=== PATIENT | male | born 1950 | race Caucasian/White ===

== ENCOUNTER 2016-10-23 01:18 | Inpatient (IN) | payer MEDICARE, MEDICAID ==
--- NOTE | 2016-10-23 02:38 | ED ---
leslie Gibbs Timothy, scribed for Catarino Luciano MD on 10/23/16 at 0133 . HPI Febrile Illness - HPI Summary HPI Summary: LEVEL V CAVEAT: Pt has intellectual and developmental disorders and cannot communicate an accurate history. Jordy Rob is a 66 yo male presenting to [facility] with fever of 103.7 at 2200 , 10/22/16, per caregiver. His Hx includes febrile seizures. Per caregiver, Pt has been more lethargic than normal today. Pt is unable to communicate his Hx due to intellectual and developmental disability. He was medicated with 325 mg tylenol at 2230. His MHx also includes DM II, epilepsy, PPD, hemorrhoids, chronic knee infusion, arthritis, excoriation disorder. - History of Current Complaint Chief Complaint: EDFever Hx Obtained From: Family/Form [employer]ter [employer] Onset/Duration: Started Hours Ago, Still Present Time of Onset: 22:00 Timing: Constant Temperature: 103.7 F Initial Severity: Moderate Current Severity: Moderate Pain Intensity: 0 Pain Scale Used: 0-10 Numeric Aggravating Factors: Nothing Alleviating Factors: Nothing Associated Signs and Symptoms: Altered Mental Status - lethargy - Additional Pertinent History Primary Care Physician: [id number] - Allergy/Home Medications Allergies/Adverse Reactions: Allergies Allergy/AdvReac Type Severity Reaction Status Date / Time Clindamycin Allergy Severe Unknown Verified 08/31/16 23:13 Reaction Details Penicillins Allergy Severe Unknown Verified 08/31/16 23:13 Reaction Details Clindamycin/Lincomycin Allergy See Comment Verified 08/31/16 23:13 Levofloxacin [From Levaquin] Allergy Swelling Verified 08/31/16 23:13 Of Face,Lips,& Throat Lincomycin Allergy See Comment Verified 08/31/16 23:13 Vancomycin Allergy Unknown Verified 08/31/16 23:13 Reaction Details lincosamides Allergy Unknown Unknown Uncoded 08/31/16 23:13 Reaction Details Home Medications: Home Medications Erythromycin OPHTH.OINT* [Ilotycin OPHTH.OINT*] 1 applic RIGHT EYE BEDTIME 10/23 [History Confirmed 10/23/16] Magnesium Hydroxide LIQ* [Milk of Magnesia LIQ*] 30 ml PO Q72HR PRN 10/23/16 [ History Confirmed 10/23/16] Miconazole Nitrate (Topical) [Antifungal] 1 applic TOPICAL DAILY 10/23/16 [ History Confirmed 10/23/16] Phenytoin Sodium Extended [Phenytek] 200 mg PO BEDTIME 10/23/16 [History Confirmed 10/23/16] guaiFENesin LIQ* [Robitussin*] 10 ml PO Q6H PRN 10/23/16 [History Confirmed 08/29] PMH/Surg Hx/FS Hx/Imm Hx Endocrine/Hematology History: Reports: Hx Diabetes - II Denies: Hx Thyroid Disease Cardiovascular History: Reports: Hx Hypertension Respiratory History: Reports: Hx Pneumonia Denies: Hx Asthma, Hx Chronic Obstructive Pulmonary Disease (COPD) GI History: Reports: Other GI Disorders - Hx of hemorrhoids Denies: Hx Ulcer History: Reports: Hx Kidney Stones Musculoskeletal History: Reports: Hx Arthritis Sensory History: Reports: Hx Cataracts Opthamlomology History: Reports: Hx Cataracts Neurological History: Reports: Hx Developmental Delay - intellectual developmental delay, Hx Seizures - epilepsy, Other Neuro Impairments/Disorders - epilepsy, profound IDD Psychiatric History: Reports: Hx Anxiety, Other Psychiatric Issues/Disorders - excoriation disorder - Surgical History Surgery Procedure, Year, and Place: kidney stones; skin grafts - Immunization History Date of Tetanus Vaccine: UTD Date of Influenza Vaccine: UTD Infectious Disease History: No Infectious Disease History: Reports: Hx of Known/Suspected MRSA Denies: Hx Clostridium Difficile, Hx Hepatitis, Hx Human Immunodeficiency Virus (HIV), Hx Shingles, Hx Tuberculosis, Traveled Outside the [place] in Last 30 Days - Family History Known Family History: Positive: Unknown - The patient has Intellectual and Developmental Disabilities - Social History Alcohol Use: None Hx Substance Use: No Substance Use Type: Reports: None Hx Tobacco Use: No Smoking Status (MU): Never Smoked Tobacco Review of Systems - ROS Summary Review of Systems Summary: LEVEL V CAVEAT: Pt has intellectual and developmental disability and is unable to review his systems. Positive: Fever Neurological: Other - lethargy All Other Systems Reviewed And Are Negative: No Physical Exam Triage Information Reviewed: Yes Vital Signs On Initial Exam: Initial Vitals Temp Pulse Resp BP Pulse Ox 99.5 F 85 16 101/62 98 10/23/16 01:23 10/23/16 01:23 10/23/16 01:23 10/23/16 01:23 10/23/16 01:23 Vital Signs Reviewed: Yes Completion Of Physical Exam Limited Due To: Extremis Appearance: Positive: Ill-Appearing - contracted Skin: Positive: Warm, Dry Eyes: Positive: BENITA ENT: Positive: Normal ENT inspection Respiratory/Lung Sounds: Positive: Rhonchi - diffuse bilat Cardiovascular: Positive: Normal Abdomen Description: Positive: Soft, Distended Musculoskeletal: Positive: Limited @ Diagnostics - Vital Signs Vital Signs Temp Pulse Resp BP Pulse Ox 10/23/16 01:23 99.5 F 85 16 101/62 98 - Laboratory Result Diagrams: 10/23/16 02:35 10/23/16 02:35 Lab Statement: Any lab studies that have been ordered have been reviewed, and results considered in the medical decision making process. - Radiology CXR Xray Interpretation: No Acute Changes - uninterpretable Radiology Interpretation Completed By: ED Physician - CT Chest CT Interpretation: Positive (See Comments) - Impression: Posterior thoracic trachea and right main bronchus soft tissue extends into upper right lobe, right middle lobe, and right lower lobe bronchi and may be due to acute aspiration debris or mucus plugging. If clinically indicated further examination and workup may be needed. Moderate lung consolidation in the right upper lobe, right middle lobe, right lower lobe, and left lower lobe may be due to aspiration pneumonia or pneumonia. Pathologically enlarged mediastinal lymphadenopathy including malignancy cannot be excluded. CT Interpretation Completed By: Radiologist - imaging social worker delinquency prevention A/P CT Interpretation: Positive (See Comments) - Impression: Posterior thoracic trachea and right main bronchus soft tissue extends into upper right lobe, right middle lobe, and right lower lobe bronchi and may be due to acute aspiration debris or mucus plugging. If clinically indicated further examination and workup may be needed. Moderate lung consolidation in the right upper lobe, right middle lobe, right lower lobe, and left lower lobe may be due to aspiration pneumonia or pneumonia. Pathologically enlarged mediastinal lymphadenopathy including malignancy cannot be excluded. CT Interpretation Completed By: Radiologist - imaging social worker delinquency prevention Course/Dx - Course Assessment/Plan: Jordy Rob is a 66 yo male presenting to [facility] with fever of 103.7. He cannot communicate effectively due to intellectual and developmental disabilities. After review of imaging studies, lab work, and consult with Dr. Paez, he will be admitted. - Diagnoses Provider Diagnoses: Pneumonia - Provider Notifications Discussed Care Of Patient With: 0322 - Dr. Paez (hospitalist) - Discussed Pt condition, agrees to admit Pt. Instructed by Provider To: Admit As Inpatient - Critical Care Time Critical Care Time: 30-74 min Discharge - Discharge Plan Condition: Fair Disposition: ADMITTED TO [facility] The documentation as recorded by the leslie burt Timothy accurately reflects the service I personally performed and the decisions made by me, Catarino Luciano MD.
[2016-10-23 02:40] LABS: Budding Yeast Present (Absent); Urine Bacteria Absent (Absent); Urine Bilirubin Negative (Negative); Urine Glucose Negative (Negative); Urine Nitrite Negative (Negative)
[2016-10-23 02:58] LABS: Hematocrit 32 % (42-52); Hemoglobin 10.5 g/dl (14.0-18.0); Mean Corpuscular HGB Conc 33 g/dl (31-36); Mean Corpuscular Hemoglobin 34 pg (27-31); Mean Corpuscular Volume 102 fL (80-94); Red Blood Count 3.09 10^6/ul (4.0-5.4); Red Cell Distribution Width 15 % (10.5-15); White Blood Count 9.8 10^3/ul (3.5-10.8)
[2016-10-23 02:59] LABS: Add Diff/Slide Review? Slide Review Added; Comments Flag Yes
[2016-10-23 03:05] LABS: BUN/Creatinine Ratio 41.7 (8-20); Calcium 8.5 mg/dL (8.6-10.3); EGFR African American 222.9 (>60); EGFR Non-African American 173.3 (>60); Potassium 3.6 mmol/L (3.5-5.0)
[2016-10-23] MEDS ORDERED: cefTRIAXone VIAL(*) 1,000 MG in NS 0.9% 50 ML* 50 ML IVPB ONE (03:21)
[2016-10-23] MEDS ORDERED: Meropenem 1 GM PREMIX(*) 1 GM/50 ML BAG IV ONE (03:23)
--- NOTE | 2016-10-23 04:04 | HP ---
H&P (Free Text) History and Physical: PCP: Ivone Cordova MD Date/Time of Evaluation: 10/23/2016 0400 CC: fever 103.7F HPI: Mr Rob is a severely mentally challenged non-verbal 66YO male resident of the [facility] who is unable to make his needs clearly known. Per his caregiver's account has had decreased activity and appetite over the past 2 days. Tonight he was noticed to feel hot with a fever of 103.7F prompting his transport for evaluation. There is no report of cough, congestion, N/V/D, concern for pain, SOB, or other issues. ED evaluation is significant for a CT chest WO revealing RU/M/LL & LLL infiltrates consistent with aspiration. Labs show a stable macrocytic anemia, WBCs of 9.8 w/ 84% neutrophils, baseline chemistries, & UA consistent with UTI. Vitals are stable, saO2 mid- to high 90s on 4L NC. Of note he was admitted to [facility] [place]/31 - 09/04/2016 for RLL pneumonia. PMedHx DM2 HTN HLD seizure disorder congenitally mentally challenged anxiety neurodermatitis OA BPH Allergies Clindamycin Allergy (Severe, Verified 08/31/16 23:13) Unknown Reaction Details Penicillins Allergy (Severe, Verified 08/31/16 23:13) Unknown Reaction Details Clindamycin/Lincomycin Allergy (Verified 08/31/16 23:13) See Comment Levofloxacin [From Levaquin] Allergy (Verified 08/31/16 23:13) Swelling Of Face,Lips,& Throat Lincomycin Allergy (Verified 08/31/16 23:13) See Comment Vancomycin Allergy (Verified 08/31/16 23:13) Unknown Reaction Details lincosamides Allergy (Unknown, Uncoded 08/31/16 23:13) Unknown Reaction Details Ambulatory Orders Acetaminophen [Tylenol] 650 mg PO BID 02/24/13 Calcium Carbonate-Cholecalcife [Oyster Shell Calcium 250+] 1 tab PO BID Finasteride TAB* [Proscar TAB*] 5 mg PO DAILY 02/24/13 Multiple Vitamin [Multivitamins] 1 cap PO DAILY 02/24/13 Phenobarbital 60 mg PO BID 02/24/13 Pioglitazone HCl-Metformin HCl [Actoplus Met] 1 tab PO BID 02/24/13 Polyethylene Glycol 3350* [Miralax*] 8.5 gm PO DAILY 02/24/13 Aspirin EC Low Dose* [Ecotrin EC Low Dose*] 81 mg PO DAILY 04/16/15 Senna TAB* [Senokot TAB*] 1 tab PO BID 11/18/15 Zocor 20 MG (NF) 20 mg PO DAILY 08/22/16 Wound Dressings [Medihoney Calcium Alginat] 1 pad TOPICAL DAILY PRN 09/01/16 Erythromycin OPHTH.OINT* [Ilotycin OPHTH.OINT*] 1 applic RIGHT EYE BEDTIME 10/23 Magnesium Hydroxide LIQ* [Milk of Magnesia LIQ*] 30 ml PO Q72HR PRN 10/23/16 Miconazole Nitrate (Topical) [Antifungal] 1 applic TOPICAL DAILY 10/23/16 Phenytoin Sodium Extended [Phenytek] 200 mg PO BEDTIME 10/23/16 guaiFENesin LIQ* [Robitussin*] 10 ml PO Q6H PRN 10/23/16 SocHx: no tobacco, alcohol, or recreational drug HX; resides at the [facility]; full code status, needs revisiting FamHx: unobtainable ROS: as above, otherwise reviewed and all were negative Constitutional: NAD, normally developed, overweight white male vitals: Vital Signs Temp 36.2 C 10/23/16 04:44 Pulse 76 10/23/16 04:44 Resp 16 10/23/16 05:13 BP 108/61 10/23/16 04:44 Pulse Ox 97 10/23/16 04:44 Intake & Output 10/22/16 10/22/16 10/23/16 11:59 23:59 11:59 Weight 150 lb HEENM: atraumatic; sclera/conjunctiva: non-icteric/clear; hearing: unable to assess; oropharynx: protuberant tongue, mucosa moist Neck: soft tissue: no nuchal rigidity; thyroid: normal Pulmonary: markedly diminished R base with mild scatter crackles thoughout, fair to poor aeration, no accessory muscle use CV: RR/RR, normal S1S2, no carotid bruit, no jugular venous distention, 2+ B DP/ PT, no edema Abdominal: soft, non-distended, non-tender, no rebound/guarding/rigidity, normoactive bowel sounds, no hepatosplenomegaly or masses, no costovertebral angle tenderness Musculoskeletal: general: grossly intact; gait: non-ambulatory at baseline Integumental: normal appearance and texture Psychiatric orientation: awake & alert, unaware of situation affect: calm mood: acquiescent eye contact: poor content: absent responses: compliant insight: absent Testing: Lab Results 10/23/16 10/23/16 10/23/16 Range/Units 02:20 02:35 02:35 WBC 9.8 (3.5-10.8) 10^3/ul RBC 3.09 L (4.0-5.4) 10^6/ul Hgb 10.5 L (14.0-18.0) g/dl Hct 32 L (42-52) % MCV 102 H (80-94) fL MCH 34 H (27-31) pg MCHC 33 (31-36) g/dl RDW 15 (10.5-15) % Plt Count (150-450) 10^3/ul MPV (7.4-10.4) um3 Neut % (Auto) 84.3 H (38-83) % Lymph % (Auto) 8.1 L (25-47) % Owen % (Auto) 6.2 (1-9) % Eos % (Auto) 0.1 (0-6) % Baso % (Auto) 1.3 (0-2) % Absolute Neuts (auto) 8.2 H (1.5-7.7) 10^3/ul Absolute Lymphs (auto) 0.8 L (1.0-4.8) 10^3/ul Absolute Monos (auto) 0.6 (0-0.8) 10^3/ul Absolute Eos (auto) 0 (0-0.6) 10^3/ul Absolute Basos (auto) 0.1 (0-0.2) 10^3/ul Absolute Nucleated RBC 0 10^3/ul Nucleated RBC % 0 Plt Count ,Citrate (150-450) 10^3/ul Sodium 138 (133-145) mmol/L Potassium 3.6 (3.5-5.0) mmol/L Chloride 99 L (101-111) mmol/L Carbon Dioxide 33 H (22-32) mmol/L Anion Gap 6 (2-11) mmol/L BUN 20 (6-24) mg/dL Creatinine 0.48 L (0.67-1.17) mg/dL Est GFR ( Amer) 222.9 (>60) Est GFR (Non-Af Amer) 173.3 (>60) BUN/Creatinine Ratio 41.7 H (8-20) Glucose 116 H (70-100) mg/dL Calcium 8.5 L (8.6-10.3) mg/dL Urine Color Yellow Urine Appearance Cloudy Urine pH 5.0 (5-9) Ur Specific [place] 1.023 (1.010-1.030) Urine Protein 2+(100 mg/dl) H (Negative) Urine Ketones Trace H (Negative) Urine Blood Negative (Negative) Urine Nitrate Negative (Negative) Urine Bilirubin Negative (Negative) Urine Urobilinogen Negative (Negative) Ur Leukocyte Esterase Trace H (Negative) Urine WBC (Auto) 3+(>20/hpf) H (Absent) Urine RBC (Auto) 2+(6-10/hpf) H (Absent) Ur Squamous Epith Cells Present H (Absent) Calcium Oxalate Crystal Present H (Absent) Urine Bacteria Absent (Absent) Hyaline Casts Present H (Absent) Urine Yeast Present H (Absent) Urine Glucose Negative (Negative) Urine Ascorbic Acid * H (Negative) 10/23/16 Range/Units 03:55 WBC (3.5-10.8) 10^3/ul RBC (4.0-5.4) 10^6/ul Hgb (14.0-18.0) g/dl Hct (42-52) % MCV (80-94) fL MCH (27-31) pg MCHC (31-36) g/dl RDW (10.5-15) % Plt Count (150-450) 10^3/ul MPV (7.4-10.4) um3 Neut % (Auto) (38-83) % Lymph % (Auto) (25-47) % Owen % (Auto) (1-9) % Eos % (Auto) (0-6) % Baso % (Auto) (0-2) % Absolute Neuts (auto) (1.5-7.7) 10^3/ul Absolute Lymphs (auto) (1.0-4.8) 10^3/ul Absolute Monos (auto) (0-0.8) 10^3/ul Absolute Eos (auto) (0-0.6) 10^3/ul Absolute Basos (auto) (0-0.2) 10^3/ul Absolute Nucleated RBC 10^3/ul Nucleated RBC % Plt Count ,Citrate 185 (150-450) 10^3/ul Sodium (133-145) mmol/L Potassium (3.5-5.0) mmol/L Chloride (101-111) mmol/L Carbon Dioxide (22-32) mmol/L Anion Gap (2-11) mmol/L BUN (6-24) mg/dL Creatinine (0.67-1.17) mg/dL Est GFR ( Amer) (>60) Est GFR (Non-Af Amer) (>60) BUN/Creatinine Ratio (8-20) Glucose (70-100) mg/dL Calcium (8.6-10.3) mg/dL Urine Color Urine Appearance Urine pH (5-9) Ur Specific [place] (1.010-1.030) Urine Protein (Negative) Urine Ketones (Negative) Urine Blood (Negative) Urine Nitrate (Negative) Urine Bilirubin (Negative) Urine Urobilinogen (Negative) Ur Leukocyte Esterase (Negative) Urine WBC (Auto) (Absent) Urine RBC (Auto) (Absent) Ur Squamous Epith Cells (Absent) Calcium Oxalate Crystal (Absent) Urine Bacteria (Absent) Hyaline Casts (Absent) Urine Yeast (Absent) Urine Glucose (Negative) Urine Ascorbic Acid (Negative) CXR, personally reviewed: markedly abnormal, large RLL effusion with macdonald-lobar infiltrates CT chest WO, personally reviewed: possible aspiration debris in upper airways & R mainstem bronchus, RUL/RML/RLL/LLL consolidation, pathologically enlarged mediastinal lymph nodes - malignancy cannot be excluded Impression: 66 profoundly mentally challenged male [facility] resident presenting with fever 2nd aspiration pneumonia DIAGNOSIS & PLAN Primary aspiration pneumonia : NPO : IVFs : IV meropenem 1g Q8H : nasal MRSA swab positive, linezolid IV (vancomycin allergy) : blood, sputum, & urine CXs : speech evaluation : supplemental oxygen : ICU monitoring as patient will likely decompensate respiratorially and require intubation w/i 48h : supplemental care Secondary DM2 : basal/correctional protocol : hold pioglitazone HTN : not currently on medications, monitor HLD : hold simvastatin seizure disorder : change phenytoin PO to fosphenytoin IV : change phenobarbital PO to IV : monitor levels periodically congenitally mentally challenged : no acute issues BPH : [place] to gravity for accurate monitoring of renal function & urine output in a critically ill patient Admission Rational: inpatient for management on HCAP in a patient at very high likelihood of respiratory decompensation DVTp: SCDs & heparin SQ Code Status: full, needs revisiting HCP: [facility]
[2016-10-23 04:17] LABS: Platelet Count, Citrated 185 10^3/ul (150-450)
[2016-10-23] MEDS ORDERED: Ondansetron INJ* 2 MG/ML VIAL IV PRN (04:25)
[2016-10-23] MEDS ORDERED: NS 0.9% 1000 ML* 1,000 ML IV ONE (04:30)
[2016-10-23] MEDS ORDERED: NS 0.9% 1000 ML* 1,000 ML IV SCH (04:30)
[2016-10-23] MEDS ORDERED: Linezolid 600 MG IVPREMIX(*) 600 MG/300 ML BAG IVPB SCH (06:00)
[2016-10-23] MEDS: Insulin LISPRO* 1 UNITS UNIT SUBCUT SCH ×4 (06:29→20:23)
[2016-10-23] MEDS: Linezolid 600 MG IVPREMIX(*) 600 MG/300 ML BAG IVPB SCH ×2 (06:39→17:41)
[2016-10-23] MEDS: PHENobarbital SODIUM(*) 65 MG/ML VIAL IV SCH ×2 (07:46→21:59)
[2016-10-23] MEDS: Pantoprazole IV* 40 MG IV SCH (07:46)
--- NOTE | 2016-10-23 08:19 | RAD ---
HISTORY: Fever COMPARISONS: September 03, 2016 VIEWS: 2: Frontal and lateral views of the chest. FINDINGS: CARDIOMEDIASTINAL SILHOUETTE: The cardiomediastinal silhouette is partially obscured DANG: The right hilum is obscured PLEURA: There is a large right pleural effusion. LUNG PARENCHYMA: There is confluent alveolar opacification of the right lung base ABDOMEN: The upper abdomen is clear. There is no subphrenic gas. BONES AND SOFT TISSUES: No bone or soft tissue abnormalities are noted. OTHER: None. IMPRESSION: LARGE RIGHT PLEURAL EFFUSION RIGHT BASILAR ATELECTASIS VERSUS CONSOLIDATION. RECOMMEND FOLLOW-UP UNTIL RESOLUTION TO EXCLUDE UNDERLYING PULMONARY PARENCHYMAL PATHOLOGY.
--- NOTE | 2016-10-23 08:24 | RAD ---
HISTORY: Shortness of breath COMPARISONS: Chest x-ray dated October 23, 2016 TECHNIQUE: Multiple contiguous axial CT scans of the chest were obtained without intravenous contrast. Coronal and sagittal multiplanar reformations are also submitted for review. FINDINGS: The study is limited by the lack of intravenous contrast. This limits evaluation of the solid organs and vasculature. NECK AND THYROID: The lower neck and thyroid are unremarkable. CHEST WALL: There is no lower cervical, axillary, or supraclavicular lymphadenopathy by size criteria. HEART AND PERICARDIUM: The heart is unremarkable. AORTA AND PULMONARY VASCULATURE: The aorta is unremarkable. There are pulmonary artery is somewhat enlarged compared to the aorta. MEDIASTINUM: The mediastinal lymphadenopathy noted on the preliminary report is not clearly visualized on this noncontrast CT of the chest. DANG: Evaluation of the dang is limited by the lack of intravenous contrast. There is no obvious hilar lymphadenopathy by size criteria. AIRWAY AND ESOPHAGUS: There is opacification of the right mainstem bronchus, branches. There is minimal aeration of the distal subsegmental airway LUNG PARENCHYMA: There is minimal left basilar atelectasis. There is consolidation of the right middle and lower lobes PLEURA: There is a moderate right pleural effusion. UPPER ABDOMEN: There is right-sided nephrolithiasis. There is a small amount of ascites. BONES AND SOFT TISSUES: Degenerative changes are noted OTHER: None. IMPRESSION: 1. THERE IS OPACIFICATION OF THE RIGHT MAINSTEM BRONCHUS AND ITS BRANCHES, RESULTING IN RIGHT MIDDLE AND LOWER LOBE CONSOLIDATION AND A RIGHT PLEURAL EFFUSION. ASPIRATION PNEUMONIA IS WITHIN THE DIFFERENTIAL. 2. THERE IS MINIMAL LEFT BASILAR ATELECTASIS. 3. THERE IS ENLARGEMENT OF THE PULMONARY ARTERY WHICH MAY INDICATE PULMONARY ARTERIAL HYPERTENSION. 4. RIGHT-SIDED NEPHROLITHIASIS. 5. ASCITES.
[2016-10-23] MEDS: Miconazole TOPICAL CREAM 2%* 30 GM TOPICAL SCH (08:39)
--- NOTE | 2016-10-23 08:40 | RAD ---
INDICATION: Abdominal distention COMPARISON: Chest x-ray August 31, 2016; abdominal series August 23, 2016; renal sonogram August 23, 2016 TECHNIQUE: Noncontrast axial source images were obtained from the hemidiaphragms to the symphysis pubis. This examination was ordered using a renal stone protocol which is performed without oral or intravenous contrast and therefore has inherent limitations when used to evaluate other intra-abdominal or intrapelvic pathology. Consider conventional contrast enhanced imaging if clinically indicated. Lung bases: There is bibasilar consolidative change right greater than left. There is presumed mucous plugging. Consider aspiration. Liver: The liver is normal in size. Noncontrast imaging shows no evidence of a hepatic mass or ductal dilatation. Gallbladder: There are no calcified gallstones. There is no evidence of wall thickening or pericholecystic fluid.. Spleen: The spleen is normal in size. The noncontrast CT appearance is normal. Pancreas: Noncontrast imaging shows no pancreatic mass or ductal dilitation. Evaluation is very limited Adrenal glands: No masses are identified. Kidneys/Bladder: Bilateral nonobstructive nephrolithiasis. Limited evaluation of the renal parenchyma. Trabeculated bladder. Adenopathy: Suspect periportal and pericaval and periaortic lymphadenopathy. Evaluation very limited. Fluid collections: Mesenteric stranding with scant ascites. Anasarca. Vessels: The aorta and iliac vessels are normal in caliber. There are mild atherosclerotic changes. The IVC appears normal Pelvic organs: The prostate and seminal vesicles appear normal GI tract: Evaluation of the bowel is limited without oral contrast. There is a large amount of stool throughout the colon with colonic distention similar to prior exams. Soft tissues: Anasarca as noted above. Small right inguinal hernia without obstruction Osseous structures: There are no acute osseous findings. IMPRESSION: 1. Bibasilar consolidative changes. Suggest a follow-up chest x-ray. 2. Bilateral, nonobstructive nephrolithiasis 3. Small amount of free fluid, mesenteric edema, and ascites. 4. Suspect mild lymphadenopathy. Evaluation is limited without oral contrast. 5. Large moderate retained stool with colonic distention.
--- NOTE | 2016-10-23 10:16 | PN ---
Subjective Date of Service: 10/23/16 Interval History: Seen and examined with [facility] staff at bedside They note he has mostly been sleeping this AM and less interactive otherwise appears comfortable Pt unable to make needs known Objective Active Medications: Erythromycin (Erythromycin Opth Oint*) 1 applic RIGHT EYE BEDTIME [facility] Heparin Sodium (Porcine) (Heparin Vial(*)) 5,000 units SUBCUT Q8HR [facility] Meropenem (Merrem 1 Gm Premix(*)) 1 gm in 50 mls @ 100 mls/hr IV Q8H [facility] Fosphenytoin Sodium 200 mg/ (Sodium Chloride) 54 mls @ 216 mls/hr IVPB BEDTIME [facility] Linezolid (Zyvox 600 Mg Ivpremix(*)) 600 mg in 300 mls @ 300 mls/hr IVPB Q12H [facility] Last Admin: 10/23/16 06:39 Dose: 300 mls/hr Insulin Glargine (Lantus(*)) 9 units SUBCUT 2100 [facility] Stop: 10/24/16 20:00 Insulin Human Lispro (Humalog*) 0 units SUBCUT Q4H [facility] PRN Reason: Protocol Last Admin: 10/23/16 09:53 Dose: Not Given Miconazole Nitrate (Monistat 2%*) 1 applic TOPICAL DAILY [facility] Last Admin: 10/23/16 08:39 Dose: Not Given Ondansetron HCl (Zofran Inj*) 4 mg IV Q6H PRN PRN Reason: NAUSEA Pantoprazole Sodium (Protonix Iv*) 40 mg IV 0730 [facility] Last Admin: 10/23/16 07:46 Dose: 40 mg Phenobarbital (Phenobarbital Iv(*)) 60 mg IV BID [facility] Last Admin: 10/23/16 07:46 Dose: 60 mg Vital Signs 10/23/16 10/23/16 10/23/16 04:43 04:44 04:45 Temperature 97.1 F 97.2 F Pulse Rate 76 77 Respiratory 18 8 Rate Blood Pressure 108/61 (mmHg) O2 Sat by Pulse 97 93 Oximetry 10/23/16 10/23/16 10/23/16 04:51 04:56 05:00 Temperature Pulse Rate 74 80 Respiratory 0 16 16 Rate Blood Pressure (mmHg) O2 Sat by Pulse 94 93 Oximetry 10/23/16 10/23/16 10/23/16 05:02 05:04 05:13 Temperature Pulse Rate 75 Respiratory 15 16 Rate Blood Pressure 108/61 (mmHg) O2 Sat by Pulse 92 Oximetry 10/23/16 10/23/16 10/23/16 05:15 05:30 05:45 Temperature Pulse Rate 76 75 74 Respiratory 19 18 13 Rate Blood Pressure 109/61 106/59 101/60 (mmHg) O2 Sat by Pulse 97 100 99 Oximetry 10/23/16 10/23/16 10/23/16 06:00 06:15 06:21 Temperature Pulse Rate 73 76 80 Respiratory 12 17 14 Rate Blood Pressure 100/57 (mmHg) O2 Sat by Pulse 99 99 100 Oximetry 10/23/16 10/23/16 10/23/16 06:30 06:45 07:00 Temperature Pulse Rate 81 77 77 Respiratory 17 18 14 Rate Blood Pressure 115/64 105/59 100/61 (mmHg) O2 Sat by Pulse 100 100 99 Oximetry 10/23/16 10/23/16 10/23/16 07:15 07:30 07:38 Temperature 97.5 F Pulse Rate 81 81 Respiratory 15 13 Rate Blood Pressure 120/70 119/70 (mmHg) O2 Sat by Pulse 99 98 Oximetry 10/23/16 10/23/16 10/23/16 07:45 08:00 08:15 Temperature Pulse Rate 83 74 72 Respiratory 13 16 9 Rate Blood Pressure 113/70 110/65 105/64 (mmHg) O2 Sat by Pulse 99 97 98 Oximetry 10/23/16 10/23/16 10/23/16 08:30 08:45 09:00 Temperature Pulse Rate 70 69 75 Respiratory 9 10 11 Rate Blood Pressure 105/64 108/64 116/63 (mmHg) O2 Sat by Pulse 98 99 100 Oximetry 10/23/16 10/23/16 10/23/16 09:15 09:30 09:45 Temperature Pulse Rate 71 70 72 Respiratory 9 10 11 Rate Blood Pressure 110/62 109/62 102/60 (mmHg) O2 Sat by Pulse 100 100 100 Oximetry 10/23/16 10/23/16 09:54 10:00 Temperature Pulse Rate 77 Respiratory 11 12 Rate Blood Pressure 115/65 (mmHg) O2 Sat by Pulse 100 Oximetry Oxygen Devices in Use Now: Nasal Cannula - 4L Appearance: sleeping 20 deg, NAD Eyes: PERRLA Ears/Nose/Mouth/Throat: - - large tongue and lower lip Neck: NL Appearance and Movements; NL JVP Respiratory: - - decreased BS in right lower lung to 1/2 up to apex, minimal rhonchi Cardiovascular: NL Sounds; No Murmurs; No JVD, RRR Abdominal: NL Sounds; No Tenderness; No Distention, No Hepatosplenomegaly Extremities: - - trace LE edema Neurological: - - AOx0 Result Diagrams: 10/23/16 02:35 10/23/16 02:35 Microbiology and Other Data: Microbiology 10/23/16 05:30 Influenza Types A,B Antigen (SERGEY) - Final Nasal Specimen received for Influenza A/B Molecular testing Assess/Plan/Problems-Billing Assessment: 66 yo M h/o severe intellectual disability/resident of [facility], seizure d/ o, DM2/HTN/HLD with 3 recent hospital stays at [facility] for suspected PNAs as well as knee effusion/cellulitis returning with fever found with suspected PNA vs right lung collapse - Patient Problems (1) Recurrent pneumonia Comment: CT findings c/w chronic process in right lung. Add procalcitonin to ED labs ID consult c/w meropenum and linezolid Per [facility] pt has lost 7 lbs since last admission. I have asked aid at bedside to disucss with [facility] confirm this number. (2) Aspiration into airway Comment: Suspected recurrent aspiration as etiology for recurrent PNAs swallow eval placed (3) Seizure disorder Comment: Seizure precautions c/w pheobarbitol and fosphenytoin (4) Diabetes Comment: Basal bolus insulin regimen HbA1c 7.1% on 08/21/2016 (5) DVT prophylaxis Comment: SQ heparin
[2016-10-23] MEDS ORDERED: NS 0.9% 50 ML* 50 ML ONE ×2 (11:51→11:53)
[2016-10-23] MEDS ORDERED: NS 0.9% IVPB SCH (12:00)
[2016-10-23] MEDS ORDERED: MEROPENEM IVPB SCH (12:00)
[2016-10-23] MEDS ORDERED: Meropenem 1 GM PREMIX(*) 1 GM/50 ML BAG IV SCH (12:00)
[2016-10-23] MEDS: cefTAZidime* 1 GM in NS 0.9% 50 ML* 50 ML IVPB SCH (12:15)
[2016-10-23] MEDS: NS 0.9% 1000 ML* 1,000 ML IV SCH (15:37)
--- NOTE | 2016-10-23 16:04 | CONS ---
CONSULTATION REPORT: DATE OF CONSULT: 10/23/16 REQUESTING PHYSICIAN: Dr. Marquez. CONSULTING SERVICE: Infectious Disease. REASON FOR CONSULT: Fever. IMPRESSION: 1. Recent fever at a fdc, he has no leukocytosis, he has no focal signs or symptoms, he generally apparently has decrease in mental status without any nuchal rigidity on exam and no fever here. I think meningitis unlikely. He has a chest CT that shows bibasilar consolidative changes and opacification of the right mainstem bronchus and its branches with right middle and lower lobe consolidation, right pleural effusion. There has been consideration of aspiration. Overall, it seems to be a chronic process and not clear what is contributing to his current fever. He has had urinary tract infection in the past, which would also be a possibility. 2. Permanent developmental delay. 3. Hypertension. 4. Diabetes. 5. Seizure disorder. 6. Allergies to CLINDAMYCIN, PENICILLIN, LEVAQUIN, and VANCOMYCIN. RECOMMENDATION: 1. Continue linezolid 600 mg every 12 hours. 2. Change meropenem to ceftazidime 1 g IV every 12 hours while we await the blood cultures. We will add a urinalysis and urine culture. HISTORY OF PRESENT ILLNESS: This is a 66-year-old male with permanent developmental delay admitted with fever. He cannot provide any of the history, which was obtained instead from discussion with Dr. Marquez, discussion with Dr. Philip, review of the medical record, and discussion with the patient's rehabilitation caseworker from [facility]. He apparently over the last of couple days has had declining mental status, been less interactive, usually feeds himself, has not able to do that. He has been less alert and had a fever to 101.3 yesterday, so they brought him to the ER. He has had no leukocytosis. CT scan with findings as above, which are similar to previous scanning. He has not had any cough. He has also had a urinary antigen for legionella and pneumococcus, were negative and nasal screen for MRSA was positive and influenza PCR was negative. Blood cultures and sputum cultures were sent and are pending. He was started on linezolid with meropenem. He has had no fevers. He does have supplemental oxygen at 4 L a minute maintaining oxygen saturations. His caregiver does not feel that he is uncomfortable, just less interactive still today. PAST MEDICAL HISTORY: 1. Permanent developmental delay. 2. Diabetes. 3. Hypertension. 4. Hyperlipidemia. 5. Seizure disorder. 6. Anxiety. 7. Neurodermatitis. 8. Osteoarthritis. 9. Benign prostatic hypertrophy. MEDICATIONS: 1. Fosphenytoin. 2. Heparin subcutaneous injection. 3. Linezolid 600 mg every 12 hours. 4. Meropenem 1 g every 8 hours. 5. Phenobarbital. 6. Pantoprazole. ALLERGIES: CLINDAMYCIN, PENICILLIN, LEVOFLOXACIN, VANCOMYCIN. FAMILY HISTORY: Unknown. SOCIAL HISTORY: Lives at [facility]. No sick contacts. REVIEW OF SYSTEMS: Unable to provide. PHYSICAL EXAM: Vital Signs: Temperature is 36, heart rate 76, respiratory rate 12, blood pressure 115/65, and O2 sat 100% on 4 L. In general, he is in no acute distress. Neurologically, he is awake, does not follow commands or answer questions. He has contractures in the upper and lower extremities bilaterally. HEENT: There is no conjunctival hemorrhage. Oropharynx without lesions. Neck: Supple without nuchal rigidity. Lymph Nodes: There is no cervical, supraclavicular, inguinal, axillary, or epitrochlear lymphadenopathy. Heart: Regular rate and rhythm without murmurs, rubs, or gallops. Lungs: Decreased breath sounds at the right lung field. There is no wheeze or rale. Abdomen: Soft, mildly distended, nontender. Skin: There is no rash or splinter hemorrhages. Musculoskeletal: There is no spine tenderness to palpation or joint synovitis. Psychiatrically, affect is flat. LABORATORY DATA: Creatinine 0.5, lactic acid of 0.8. White blood cell count 9 , hemoglobin 10, MCV 102, platelets 185. Influenza PCR negative. Urinalysis shows ketones, leukocyte esterase, white blood cells, no nitrites. Please see impressions and recommendations as outlined above. Thanks for asking me to see Mr. Rob in consultation. [id number]/[facility] #: [id number] CHITRA
[2016-10-23] MEDS ORDERED: Insulin GLARGINE(*) 1 UNITS UNIT SUBCUT SCH (21:00)
[2016-10-23] MEDS ORDERED: Fosphenytoin(*) 100 MG/2 ML VIAL IVPB SCH (21:00)
[2016-10-23] MEDS: Erythromycin OPTH OINT* APPLIC OINT RIGHT EYE SCH (22:00)
[2016-10-23] MEDS: FOSPHENYTOIN IVPB SCH (22:27)
[2016-10-23] MEDS: NS 0.9% IVPB SCH (22:27)
[2016-10-24] MEDS: cefTAZidime* 1 GM in NS 0.9% 50 ML* 50 ML IVPB SCH ×2 (00:02→13:59)
[2016-10-24] MEDS: Insulin LISPRO* 1 UNITS UNIT SUBCUT SCH ×4 (02:33→20:28)
[2016-10-24] MEDS ORDERED: Dextrose 50% Syringe 50 ML* 25 GM/50 ML SYRINGE IV PUSH PRN (02:36)
[2016-10-24] MEDS: NS 0.9% 1000 ML* 1,000 ML IV SCH ×2 (04:05→13:59)
[2016-10-24] MEDS: Heparin VIAL(*) 5000 UNITS/ML VIAL (FIVE THOUSAND) SUBCUT SCH ×3 (05:40→22:17)
[2016-10-24] MEDS: Linezolid 600 MG IVPREMIX(*) 600 MG/300 ML BAG IVPB SCH ×2 (05:41→18:14)
[2016-10-24] MEDS: Pantoprazole IV* 40 MG IV SCH (09:20)
[2016-10-24] MEDS: PHENobarbital SODIUM(*) 65 MG/ML VIAL IV SCH ×2 (09:21→22:16)
[2016-10-24] MEDS: Miconazole TOPICAL CREAM 2%* 30 GM TOPICAL SCH (09:22)
--- NOTE | 2016-10-24 10:08 | PN ---
Progress Note - Progress Note SOAP: Subjective: DOS: 10/24/15 CC: fever HPI: 66 yo man with dev delay can't provide hx, fever and less alert at long term. Improving here with IVF and antibiotics. No recurrence of fever. RN notes him to be more alert this morning. No diarrhea. Occasional non productive cough, O2 suppl weaned down to baseline of 2L. Can't give ROS. Objective: [] Vital Signs Temp 36.1 C 10/24/16 09:24 Pulse 76 10/24/16 07:43 Resp 16 10/24/16 09:21 BP 111/55 10/24/16 07:43 Pulse Ox 99 10/24/16 08:38 Intake & Output 10/23/16 10/24/16 10/24/16 18:59 06:59 18:59 Intake Total 0 1189 0 Output Total 100 700 Balance -100 489 0 Intake: IV Fluids 1074 NS (0.9%) 1074 IVPB 115 ABX - CEFTAZIDIME 55 Fosphenytoin 60 Oral 0 0 0 Output: [place] 100 700 Other: # Bowel Movements 0 1 Estimated Stool Amount Large Gen:NAD, not diaphoretic Neuro: awake, does not regard, upper and lower extremity contractures bilaterally Neck:Supple Heart:RRR no murmur Lungs: decreased BS right lung luna no wheeze Abd:+BS NTND soft Skin: no rash MSK: no joint synovitis Sodium 138 mmol/L (133-145) 10/23/16 02:35 Potassium 3.6 mmol/L (3.5-5.0) 10/23/16 02:35 BUN 20 mg/dL (6-24) 10/23/16 02:35 Creatinine 0.48 mg/dL (0.67-1.17) L 10/23/16 02:35 Calcium 8.5 mg/dL (8.6-10.3) L 10/23/16 02:35 Microbiology 10/23/16 03:55 Aerobic Blood Culture - Preliminary Blood Venous No Growth Day 1 Anaerobic Blood Culture - Preliminary No Growth Day 1 10/23/16 04:08 Aerobic Blood Culture - Preliminary Blood Venous No Growth Day 1 Anaerobic Blood Culture - Preliminary No Growth Day 1 10/23/16 05:30 Influenza Types A,B Antigen (SERGEY) - Final Nasal Specimen received for Influenza A/B Molecular testing 10/23/16 04:15 Nasal Screen MRSA (PCR)(SERGEY) - Final Nasal Mrsa Positive 10/23/16 02:20 Legionella Urinary Antigen - Final Urine Negative Legionella Streptococcus pneumoniae Ag Screen - Final Negative S. pneumo Antigen Assessment: 1. fever, improved ?UTI vs PNA which could also be viral or aspiration pneumonitis given rapid improvement 2. obstructed right mainstem bronchus, chronic; diff dx includes endobronchial tumor, 3. developmental delay 4. chronic hypoxemic respiratory failure 5. allergy to vanco, pcn, FQ, clinda; tolerating cephalosporin Plan: 1. continue linezolid and ceftaz while awaiting UC; BC NGTD. 2. supplemental O2
--- NOTE | 2016-10-24 14:55 | PN ---
Subjective Date of Service: 10/24/16 Interval History: More alert today. Sat up watching cartoons. Less lethargic. Unable to make needs known Objective Active Medications: Dextrose (D50w Syringe 50 Ml*) 12.5 gm IV PUSH .PER PARAMETERS PRN PRN Reason: FOR FS < 60 Erythromycin (Erythromycin Opth Oint*) 1 applic RIGHT EYE BEDTIME [facility] Last Admin: 10/23/16 22:00 Dose: 1 applic Heparin Sodium (Porcine) (Heparin Vial(*)) 5,000 units SUBCUT Q8HR [facility] Last Admin: 10/24/16 13:59 Dose: 5,000 units Fosphenytoin Sodium 200 mg/ (Sodium Chloride) 54 mls @ 216 mls/hr IVPB BEDTIME [facility] Last Admin: 10/23/16 22:27 Dose: 216 mls/hr Linezolid (Zyvox 600 Mg Ivpremix(*)) 600 mg in 300 mls @ 300 mls/hr IVPB Q12H [facility] Last Admin: 10/24/16 05:41 Dose: 300 mls/hr Ceftazidime 1 gm/ Sodium (Chloride) 50 mls @ 100 mls/hr IVPB Q12H [facility] Last Admin: 10/24/16 13:59 Dose: 100 mls/hr Sodium Chloride (Ns 0.9% 1000 Ml*) 1,000 mls @ 100 mls/hr IV PER RATE [facility] Last Admin: 10/24/16 13:59 Dose: 100 mls/hr Insulin Glargine (Lantus(*)) 9 units SUBCUT 2100 [facility] Stop: 10/24/16 20:00 Last Admin: 10/23/16 21:59 Dose: 9 unit Insulin Human Lispro (Humalog*) 0 units SUBCUT Q6H [facility] PRN Reason: Protocol Last Admin: 10/24/16 13:59 Dose: Not Given Miconazole Nitrate (Monistat 2%*) 1 applic TOPICAL DAILY [facility] Last Admin: 10/24/16 09:22 Dose: Not Given Ondansetron HCl (Zofran Inj*) 4 mg IV Q6H PRN PRN Reason: NAUSEA Pantoprazole Sodium (Protonix Iv*) 40 mg IV 0730 [facility] Last Admin: 10/24/16 09:20 Dose: 40 mg Phenobarbital (Phenobarbital Iv(*)) 60 mg IV BID [facility] Last Admin: 10/24/16 09:21 Dose: 60 mg Vital Signs 10/23/16 10/23/16 10/23/16 15:38 19:41 20:00 Temperature Pulse Rate 74 77 Respiratory 16 17 16 Rate Blood Pressure 134/78 126/73 (mmHg) O2 Sat by Pulse 99 98 Oximetry 10/23/16 10/23/16 10/24/16 21:59 22:59 00:13 Temperature 96.7 F Pulse Rate 72 Respiratory 16 16 16 Rate Blood Pressure 111/59 (mmHg) O2 Sat by Pulse 94 Oximetry 10/24/16 10/24/16 10/24/16 04:25 07:43 08:00 Temperature Pulse Rate 71 76 Respiratory 16 16 16 Rate Blood Pressure 117/73 111/55 (mmHg) O2 Sat by Pulse 97 99 Oximetry 10/24/16 10/24/16 10/24/16 08:38 09:21 09:24 Temperature 97 F Pulse Rate Respiratory 16 Rate Blood Pressure (mmHg) O2 Sat by Pulse 99 Oximetry 10/24/16 10/24/16 10:21 11:40 Temperature 96.3 F Pulse Rate 79 Respiratory 16 16 Rate Blood Pressure 129/80 (mmHg) O2 Sat by Pulse 96 Oximetry Oxygen Devices in Use Now: Nasal Cannula - 2L Appearance: sitting up in bed, NAD Eyes: No Scleral Icterus, PERRLA Ears/Nose/Mouth/Throat: - - large tongue and lower lip Neck: NL Appearance and Movements; NL JVP Respiratory: Symmetrical Chest Expansion and Respiratory Effort, - - rhonchorous b/l Cardiovascular: NL Sounds; No Murmurs; No JVD, RRR Abdominal: NL Sounds; No Tenderness; No Distention, No Hepatosplenomegaly Extremities: No Edema Skin: No Rash or Ulcers Neurological: - - AOX0 Result Diagrams: 10/23/16 02:35 10/23/16 02:35 Microbiology and Other Data: Microbiology 10/23/16 05:30 Influenza Types A,B Antigen (SERGEY) - Final Nasal Specimen received for Influenza A/B Molecular testing Assess/Plan/Problems-Billing Assessment: 66 yo M h/o severe intellectual disability/resident of [facility], seizure d/ o, DM2/HTN/HLD with 3 recent hospital stays at [facility] for suspected PNAs as well as knee effusion/cellulitis returning with fever found with suspected PNA vs right lung collapse as well as aerococcus in urine - Patient Problems (1) UTI (urinary tract infection) Comment: Urine cx positive for aerococcus similar to 2016 unclear if this is source vs pulmonary maintain abx (2) Recurrent pneumonia Comment: CT findings c/w chronic process in right lung. Remains afebrile and hemodynamically stable procalcitonin low c/w ceftazidime and linezolid - Per [facility] pt has lost 7 lbs since last admission. (3) Aspiration into airway Comment: Suspected recurrent aspiration as etiology for recurrent PNAs appreciate swallow eval. Diet adjusted (4) Seizure disorder Comment: Seizure precautions c/w pheobarbitol and fosphenytoin (5) Diabetes Comment: Basal bolus insulin regimen HbA1c 7.1% on 08/21/2016 (6) DVT prophylaxis Comment: SQ heparin Status and Disposition: If remains with sustained clinical improvement suspect discharge in next 24- 48hrs.
[2016-10-24] MEDS: FOSPHENYTOIN IVPB SCH (22:12)
[2016-10-24] MEDS: NS 0.9% IVPB SCH (22:12)
[2016-10-24] MEDS: Erythromycin OPTH OINT* APPLIC OINT RIGHT EYE SCH (22:16)
[2016-10-24] MEDS: Insulin GLARGINE(*) 1 UNITS UNIT SUBCUT SCH (22:18)
[2016-10-25] MEDS: cefTAZidime* 1 GM in NS 0.9% 50 ML* 50 ML IVPB SCH ×2 (00:26→12:47)
[2016-10-25] MEDS: Insulin LISPRO* 1 UNITS UNIT SUBCUT SCH ×4 (02:18→23:39)
[2016-10-25] MEDS: NS 0.9% 1000 ML* 1,000 ML IV SCH ×2 (04:25→16:31)
[2016-10-25] MEDS: Linezolid 600 MG IVPREMIX(*) 600 MG/300 ML BAG IVPB SCH (05:44)
[2016-10-25] MEDS: Heparin VIAL(*) 5000 UNITS/ML VIAL (FIVE THOUSAND) SUBCUT SCH ×3 (05:48→23:51)
[2016-10-25] MEDS: Pantoprazole IV* 40 MG IV SCH (09:34)
[2016-10-25] MEDS: PHENobarbital SODIUM(*) 65 MG/ML VIAL IV SCH ×2 (09:34→23:34)
[2016-10-25] MEDS: Miconazole TOPICAL CREAM 2%* 30 GM TOPICAL SCH (09:35)
--- NOTE | 2016-10-25 15:13 | PN ---
Progress Note - Progress Note SOAP: Subjective: DOS: 10/25/15 CC: fever HPI: 66 yo man with dev delay can't provide hx, fever and less alert at longterm. Can't answer questions or give ROS. Per RN alert all day, napping recently. No fever or diarrhea. Eating. Objective: [] Vital Signs Temp 35.6 C 10/25/16 07:22 Pulse 72 10/25/16 07:22 Resp 16 10/25/16 10:34 BP 129/74 10/25/16 07:22 Pulse Ox 97 10/25/16 08:34 Intake & Output 10/24/16 10/25/16 10/25/16 18:59 06:59 18:59 Intake Total 1237 850 120 Output Total 250 Balance 1237 600 120 Intake: IV Fluids 1237 850 Fosphenytoin 50 all fluids 1237 800 Oral 0 0 120 Output: Urine 250 Other: Estimated Void Large Medium Medium # Bowel Movements 0 0 1 Estimated Stool Amount Small Medium # Voids 2 1 3 Gen:NAD, not diaphoretic Neuro: awake, does not regard, upper and lower extremity contractures bilaterally Neck:Supple Heart:RRR no murmur Lungs: decreased BS right lung luna no wheeze Abd:+BS NTND soft Skin: no rash MSK: no joint synovitis Assessment: 1. fever, improved, Aeromonas UTI, likely prostatitis 2. obstructed right mainstem bronchus, chronic 3. developmental delay 4. chronic hypoxemic respiratory failure 5. allergy to vanco, pcn, FQ, clinda; tolerating cephalosporin Plan: 1. change abx to doxycycline 100 mg po bid for 4 weeks 2. supplemental O2 Discussed with Dr Burt
--- NOTE | 2016-10-25 18:14 | PN ---
Subjective Date of Service: 10/25/16 Interval History: Pt is awake, nonverbal. Mechelle'd by speech for pureed solids and pudding thick liquids. Objective Active Medications: Dextrose (D50w Syringe 50 Ml*) 12.5 gm IV PUSH .PER PARAMETERS PRN PRN Reason: FOR FS < 60 Doxycycline Hyclate (Vibramycin Cap(*)) 100 mg PO BID [facility] Erythromycin (Erythromycin Opth Oint*) 1 applic RIGHT EYE BEDTIME [facility] Last Admin: 10/24/16 22:16 Dose: 1 applic Heparin Sodium (Porcine) (Heparin Vial(*)) 5,000 units SUBCUT Q8HR [facility] Last Admin: 10/25/16 12:47 Dose: 5,000 units Fosphenytoin Sodium 200 mg/ (Sodium Chloride) 54 mls @ 216 mls/hr IVPB BEDTIME [facility] Last Admin: 10/24/16 22:12 Dose: 216 mls/hr Sodium Chloride (Ns 0.9% 1000 Ml*) 1,000 mls @ 100 mls/hr IV PER RATE [facility] Last Admin: 10/25/16 16:31 Dose: 100 mls/hr Insulin Glargine (Lantus(*)) 5 units SUBCUT 2100 [facility] Stop: 10/30/16 20:00 Last Admin: 10/24/16 22:18 Dose: 5 units Insulin Human Lispro (Humalog*) 0 units SUBCUT Q6H [facility] PRN Reason: Protocol Last Admin: 10/25/16 14:21 Dose: 1 unit Miconazole Nitrate (Monistat 2%*) 1 applic TOPICAL DAILY [facility] Last Admin: 10/25/16 09:35 Dose: Not Given Ondansetron HCl (Zofran Inj*) 4 mg IV Q6H PRN PRN Reason: NAUSEA Pantoprazole Sodium (Protonix Iv*) 40 mg IV 0730 [facility] Last Admin: 10/25/16 09:34 Dose: 40 mg Phenobarbital (Phenobarbital Iv(*)) 60 mg IV BID [facility] Last Admin: 10/25/16 09:34 Dose: 60 mg Vital Signs 10/24/16 10/24/16 10/24/16 19:20 19:21 20:00 Temperature 97.9 F Pulse Rate 77 Respiratory 18 18 Rate Blood Pressure 112/67 (mmHg) O2 Sat by Pulse 97 Oximetry 10/24/16 10/24/1617 22:16 23:16 23:39 Temperature 96.2 F Pulse Rate 71 Respiratory 16 20 16 Rate Blood Pressure 122/79 (mmHg) O2 Sat by Pulse 99 Oximetry 10/25/16 10/25/16 10/25/16 01:25 07:22 08:00 Temperature 96.0 F Pulse Rate 72 Respiratory 18 16 Rate Blood Pressure 129/74 (mmHg) O2 Sat by Pulse 97 96 Oximetry 10/25/16 10/25/16 10/25/16 08:34 09:34 10:34 Temperature Pulse Rate Respiratory 16 16 Rate Blood Pressure (mmHg) O2 Sat by Pulse 97 Oximetry 10/25/16 16:10 Temperature Pulse Rate 81 Respiratory 17 Rate Blood Pressure 138/86 (mmHg) O2 Sat by Pulse 93 Oximetry Oxygen Devices in Use Now: Nasal Cannula - 2L Result Diagrams: 10/23/16 02:35 10/23/16 02:35 Microbiology and Other Data: Microbiology 10/23/16 05:30 Influenza Types A,B Antigen (SERGEY) - Final Nasal Specimen received for Influenza A/B Molecular testing Assess/Plan/Problems-Billing Assessment: 66 yo M h/o severe intellectual disability/resident of [facility], seizure d/ o, DM2/HTN/HLD with 3 recent hospital stays at [facility] [place] [facility] for suspected PNAs as well as knee effusion/cellulitis returning with fever found with suspected PNA vs right lung collapse as well as aerococcus in urine - Patient Problems (1) Aspiration into airway Comment: Suspected recurrent aspiration as etiology for recurrent PNAs appreciate swallow eval. Diet adjusted (2) UTI (urinary tract infection) Current Visit: Yes Comment: Urine cx positive for aerococcus similar to Aug 2016 appreciate ID consult, possible prostatitis, recommended Doxy x 4 weeks tx started (3) Acute respiratory failure with hypoxia Comment: Significantly improved. No tachypnea. Likely secondary to Pneumonia. On only 2 liters via nc now. (4) Seizure disorder Comment: Seizure precautions c/w pheobarbital and fosphenytoin (5) Diabetes Comment: Basal bolus insulin regimen HbA1c 7.1% on 08/21/2016 (6) DVT prophylaxis Comment: SQ heparin Status and Disposition: If remains with sustained clinical improvement suspect discharge in next 24- 48hrs.
[2016-10-25] MEDS: FOSPHENYTOIN IVPB SCH (23:48)
[2016-10-25] MEDS: NS 0.9% IVPB SCH (23:48)
[2016-10-25] MEDS: DOXYcycline CAP(*) 100 MG PO SCH (23:48)
[2016-10-25] MEDS: Erythromycin OPTH OINT* APPLIC OINT RIGHT EYE SCH (23:51)
[2016-10-25] MEDS: Insulin GLARGINE(*) 1 UNITS UNIT SUBCUT SCH (23:52)
[2016-10-26] MEDS: Insulin LISPRO* 1 UNITS UNIT SUBCUT SCH ×4 (03:26→21:21)
[2016-10-26] MEDS: Heparin VIAL(*) 5000 UNITS/ML VIAL (FIVE THOUSAND) SUBCUT SCH ×3 (06:14→21:23)
[2016-10-26 06:39] LABS: Hematocrit 34 % (42-52); Hemoglobin 11.2 g/dl (14.0-18.0); Mean Corpuscular HGB Conc 33 g/dl (31-36); Mean Corpuscular Hemoglobin 34 pg (27-31); Mean Corpuscular Volume 102 fL (80-94); Mean Platelet Volume 10 um3 (7.4-10.4); Red Blood Count 3.32 10^6/ul (4.0-5.4); Red Cell Distribution Width 15 % (10.5-15); White Blood Count 5.1 10^3/ul (3.5-10.8)
[2016-10-26 06:54] LABS: BUN/Creatinine Ratio 28.1 (8-20); Calcium 8.4 mg/dL (8.6-10.3); EGFR African American 355.9 (>60); EGFR Non-African American 276.8 (>60); Potassium 3.4 mmol/L (3.5-5.0)
[2016-10-26] MEDS: PHENobarbital SODIUM(*) 65 MG/ML VIAL IV SCH ×2 (08:40→21:22)
[2016-10-26] MEDS: Pantoprazole IV* 40 MG IV SCH (08:40)
[2016-10-26] MEDS: DOXYcycline CAP(*) 100 MG PO SCH ×2 (08:40→21:22)
--- NOTE | 2016-10-26 13:55 | PN ---
Subjective Date of Service: 10/26/16 Interval History: Pt appears at baseline: awake, non verbal.Ate breakfast and taking PO tabs without problems. This AM hypoglycemia noted on labs. Given orange juice with good response Objective Active Medications: Dextrose (D50w Syringe 50 Ml*) 12.5 gm IV PUSH .PER PARAMETERS PRN PRN Reason: FOR FS < 60 Doxycycline Hyclate (Vibramycin Cap(*)) 100 mg PO BID [facility] Last Admin: 10/26/16 08:40 Dose: 100 mg Erythromycin (Erythromycin Opth Oint*) 1 applic RIGHT EYE BEDTIME [facility] Last Admin: 10/25/16 23:51 Dose: 1 applic Heparin Sodium (Porcine) (Heparin Vial(*)) 5,000 units SUBCUT Q8HR [facility] Last Admin: 10/26/16 06:14 Dose: 5,000 units Fosphenytoin Sodium 200 mg/ (Sodium Chloride) 54 mls @ 216 mls/hr IVPB BEDTIME [facility] Last Admin: 10/25/16 23:48 Dose: 216 mls/hr Insulin Human Lispro (Humalog*) 0 units SUBCUT Q6H [facility] PRN Reason: Protocol Last Admin: 10/26/16 10:04 Dose: Not Given Miconazole Nitrate (Monistat 2%*) 1 applic TOPICAL DAILY [facility] Last Admin: 10/25/16 09:35 Dose: Not Given Ondansetron HCl (Zofran Inj*) 4 mg IV Q6H PRN PRN Reason: NAUSEA Pantoprazole Sodium (Protonix Iv*) 40 mg IV 0730 [facility] Last Admin: 10/26/16 08:40 Dose: 40 mg Phenobarbital (Phenobarbital Iv(*)) 60 mg IV BID [facility] Last Admin: 10/26/16 08:40 Dose: 60 mg Vital Signs 10/25/16 10/25/16 10/25/16 16:10 20:00 22:32 Pulse Rate 81 Respiratory 17 16 Rate Blood Pressure 138/86 (mmHg) O2 Sat by Pulse 93 93 Oximetry 10/25/16 10/25/16 10/26/16 23:34 23:51 00:34 Pulse Rate 73 Respiratory 20 16 16 Rate Blood Pressure 151/87 (mmHg) O2 Sat by Pulse 97 Oximetry 10/26/16 10/26/16 10/26/16 08:00 08:40 08:54 Pulse Rate 71 Respiratory 16 16 12 Rate Blood Pressure 132/81 (mmHg) O2 Sat by Pulse 98 Oximetry 10/26/16 12:15 Pulse Rate Respiratory Rate Blood Pressure (mmHg) O2 Sat by Pulse 98 Oximetry Oxygen Devices in Use Now: Nasal Cannula - 2L Appearance: 66 yo M, awake, nonverbal, large protruding tongue at baseline Eyes: No Scleral Icterus, PERRLA Ears/Nose/Mouth/Throat: NL Teeth, Lips, Gums, Mucous Membranes Moist Neck: NL Appearance and Movements; NL JVP, Trachea Midline Respiratory: Symmetrical Chest Expansion and Respiratory Effort, - - upper lung rhonchi B/L-clear with weak cough Cardiovascular: RRR Abdominal: NL Sounds; No Tenderness; No Distention, No Hepatosplenomegaly Lymphatic: No Cervical Adenopathy Extremities: No Edema, No Clubbing, Cyanosis Skin: No Rash or Ulcers, No Nodules or Sclerosis Neurological: Alert and Oriented x 3, - - muscle hypotonia noted-chronic Result Diagrams: 10/26/16 06:09 10/26/16 06:09 Microbiology and Other Data: Microbiology 10/23/16 05:30 Influenza Types A,B Antigen (SERGEY) - Final Nasal Specimen received for Influenza A/B Molecular testing Assess/Plan/Problems-Billing Assessment: 66 yo M h/o severe intellectual disability/resident of [facility], seizure d/ o, DM2/HTN/HLD with [place] [facility] [place] as well as knee effusion/cellulitis returning with fever found with suspected PNA vs right lung collapse as well as aerococcus in urine - Patient Problems (1) Aspiration into airway Comment: Suspected recurrent aspiration as etiology for recurrent PNAs appreciate swallow eval. Diet adjusted (2) UTI (urinary tract infection) Comment: Urine cx positive for aerococcus similar to Aug 2016 appreciate ID consult, possible prostatitis, recommended Doxy x 4 weeks (3) Acute respiratory failure with hypoxia Comment: Significantly improved. No tachypnea. Likely secondary to Pneumonia. On only 2 liters via nc now. (4) Seizure disorder Comment: Seizure precautions c/w pheobarbital and fosphenytoin (5) Diabetes Comment: due to hypoglycemia will stop Lantus and cont ISS HbA1c 7.1% on 08/21/2016 (6) DVT prophylaxis Comment: SQ heparin Status and Disposition: If remains with sustained clinical improvement d/c planned on Friday10/28/16
[2016-10-26] MEDS: Miconazole TOPICAL CREAM 2%* 30 GM TOPICAL SCH (14:49)
[2016-10-26] MEDS: Erythromycin OPTH OINT* APPLIC OINT RIGHT EYE SCH (21:22)
[2016-10-26] MEDS: FOSPHENYTOIN IVPB SCH (21:45)
[2016-10-26] MEDS: NS 0.9% IVPB SCH (21:45)
[2016-10-27] MEDS: Insulin LISPRO* 1 UNITS UNIT SUBCUT SCH ×4 (02:24→21:11)
[2016-10-27] MEDS: Heparin VIAL(*) 5000 UNITS/ML VIAL (FIVE THOUSAND) SUBCUT SCH ×3 (05:19→21:12)
[2016-10-27] MEDS: Pantoprazole IV* 40 MG IV SCH (09:39)
[2016-10-27] MEDS: PHENobarbital SODIUM(*) 65 MG/ML VIAL IV SCH ×2 (09:39→21:12)
[2016-10-27] MEDS: DOXYcycline CAP(*) 100 MG PO SCH ×2 (09:39→21:09)
[2016-10-27] MEDS: Miconazole TOPICAL CREAM 2%* 30 GM TOPICAL SCH (09:41)
--- NOTE | 2016-10-27 14:27 | PN ---
Subjective Date of Service: 10/27/16 Interval History: pt's status is unchanged, awake, nonverbal Objective Active Medications: Dextrose (D50w Syringe 50 Ml*) 12.5 gm IV PUSH .PER PARAMETERS PRN PRN Reason: FOR FS < 60 Doxycycline Hyclate (Vibramycin Cap(*)) 100 mg PO BID [facility] Last Admin: 10/27/16 09:39 Dose: 100 mg Erythromycin (Erythromycin Opth Oint*) 1 applic RIGHT EYE BEDTIME [facility] Last Admin: 10/26/16 21:22 Dose: 1 applic Heparin Sodium (Porcine) (Heparin Vial(*)) 5,000 units SUBCUT Q8HR [facility] Last Admin: 10/27/16 05:19 Dose: 5,000 units Fosphenytoin Sodium 200 mg/ (Sodium Chloride) 54 mls @ 216 mls/hr IVPB BEDTIME [facility] Last Admin: 10/26/16 21:45 Dose: 216 mls/hr Insulin Human Lispro (Humalog*) 0 units SUBCUT Q6H [facility] PRN Reason: Protocol Last Admin: 10/27/16 09:42 Dose: Not Given Miconazole Nitrate (Monistat 2%*) 1 applic TOPICAL DAILY [facility] Last Admin: 10/27/16 09:41 Dose: 1 applic Ondansetron HCl (Zofran Inj*) 4 mg IV Q6H PRN PRN Reason: NAUSEA Pantoprazole Sodium (Protonix Iv*) 40 mg IV 0730 [facility] Last Admin: 10/27/16 09:39 Dose: 40 mg Phenobarbital (Phenobarbital Iv(*)) 60 mg IV BID [facility] Last Admin: 10/27/16 09:39 Dose: 60 mg Vital Signs 10/26/16 10/26/16 10/26/16 15:22 20:00 21:22 Temperature Pulse Rate 71 Respiratory 16 16 14 Rate Blood Pressure 145/84 (mmHg) O2 Sat by Pulse 98 Oximetry 10/26/16 10/26/16 10/27/16 22:22 23:26 00:00 Temperature Pulse Rate 73 Respiratory 16 22 Rate Blood Pressure 137/78 (mmHg) O2 Sat by Pulse 99 99 Oximetry 10/27/16 10/27/16 10/27/16 00:01 07:55 08:00 Temperature 97.1 F 96.3 F Pulse Rate 69 Respiratory 12 14 Rate Blood Pressure 148/84 (mmHg) O2 Sat by Pulse 98 Oximetry 10/27/16 10/27/16 09:39 10:39 Temperature Pulse Rate Respiratory 14 18 Rate Blood Pressure (mmHg) O2 Sat by Pulse Oximetry Oxygen Devices in Use Now: Nasal Cannula - 2L Appearance: 66 yo M, large protruding tongue, nonverbal, awake Eyes: No Scleral Icterus, PERRLA Ears/Nose/Mouth/Throat: NL Teeth, Lips, Gums, Mucous Membranes Moist Neck: NL Appearance and Movements; NL JVP, Trachea Midline Respiratory: - - coarse rhonchi b/l upper lungs, clear with cough Cardiovascular: NL Sounds; No Murmurs; No JVD, RRR Abdominal: NL Sounds; No Tenderness; No Distention Lymphatic: No Cervical Adenopathy Skin: No Rash or Ulcers, No Nodules or Sclerosis Neurological: - - muscle hypotonia noted, nonverbal Result Diagrams: 10/26/16 06:09 10/26/16 06:09 Microbiology and Other Data: Microbiology 10/23/16 05:30 Influenza Types A,B Antigen (SERGEY) - Final Nasal Specimen received for Influenza A/B Molecular testing Assess/Plan/Problems-Billing Assessment: 66 yo M h/o severe intellectual disability/resident of [facility], seizure d/ o, DM2/HTN/HLD with 3 recent hospital stays at [facility] [place] for suspected PNAs as well as knee effusion/cellulitis returning with fever found with suspected PNA vs right lung collapse as well as aerococcus in urine - Patient Problems (1) Aspiration into airway Comment: Suspected recurrent aspiration as etiology for recurrent PNAs appreciate swallow eval. Diet adjusted to pudding thick and puree. tolerating it well (2) UTI (urinary tract infection) Comment: Urine cx positive for aerococcus similar to Aug 2016 appreciate ID consult, possible prostatitis, recommended Doxy x 4 weeks (3) Acute respiratory failure with hypoxia Comment: Significantly improved. No tachypnea. Likely secondary to Pneumonia. On only 2 liters via nc now. (4) Seizure disorder Comment: Seizure precautions c/w pheobarbital and fosphenytoin (5) Diabetes Comment: due to hypoglycemia will stop Lantus and cont ISS HbA1c 7.1% on 08/21/2016 (6) DVT prophylaxis Comment: SQ heparin Status and Disposition: If remains with sustained clinical improvement d/c planned on Friday10/28/16
[2016-10-27] MEDS: NS 0.9% IVPB SCH (21:12)
[2016-10-27] MEDS: FOSPHENYTOIN IVPB SCH (21:12)
[2016-10-27] MEDS: Erythromycin OPTH OINT* APPLIC OINT RIGHT EYE SCH (21:12)
[2016-10-28] MEDS: Insulin LISPRO* 1 UNITS UNIT SUBCUT SCH ×3 (01:53→12:57)
[2016-10-28] MEDS: Heparin VIAL(*) 5000 UNITS/ML VIAL (FIVE THOUSAND) SUBCUT SCH (05:27)
[2016-10-28 07:40] VITALS: BP 150/88
[2016-10-28] MEDS: Pantoprazole IV* 40 MG IV SCH (07:52)
[2016-10-28] MEDS: PHENobarbital SODIUM(*) 65 MG/ML VIAL IV SCH (09:15)
[2016-10-28] MEDS: DOXYcycline CAP(*) 100 MG PO SCH (09:15)
[2016-10-28] MEDS: Miconazole TOPICAL CREAM 2%* 30 GM TOPICAL SCH (14:00)
--- NOTE | 2016-10-28 18:24 | DS ---
DISCHARGE SUMMARY: DATE OF ADMISSION: 10/23/16 DATE OF DISCHARGE: 10/28/16 PRIMARY CARE PROVIDER: Dr. Cordova. DISCHARGE DIAGNOSES: 1. Acute respiratory failure due to aspiration pneumonia, which is recurrent. 2. Prostatitis, with urine cultures positive for aerococcus species. The patient had a nasal screen positive for methicillin-resistant Staphylococcus aureus. SECONDARY DIAGNOSES: 1. Congenital developmental delay. 2. Diabetes, type 2. 3. History of recurrent aspiration and problems with chronic dysphagia. 4. Hypertension. 5. Dyslipidemia. 6. History of seizure disorder. 7. History of neurodermatitis. 8. Osteoarthritis. 9. BPH. MEDICATIONS AT DISCHARGE: Include: 1. Zocor 20 mg daily. 2. Acetaminophen 650 mg b.i.d. 3. Aspirin 81 mg daily. 4. Calcium carbonate 1 tablet b.i.d. 5. Doxycycline 100 mg b.i.d. for 4 weeks' total. 6. Erythromycin ointment 1 application right eye at bedtime. 7. Proscar 5 mg daily. 8. Multivitamin 1 tablet daily. 9. Phenobarbital 60 mg b.i.d. 10. Dilantin extended release 200 mg at bedtime. 11. Pioglitazone with metformin 1 tablet p.o. b.i.d. 12. MiraLAX 1 packet daily p.r.n. 13. Senokot 1 tablet b.i.d. 14. Wound dressings with Medihoney, apply daily to sacral decubitus. 15. Robitussin 10 mL every 6 hours p.r.n. cough. DIET AT DISCHARGE: Includes diabetic with pureed solids and pudding thick liquids. LABORATORY DATA: Prior to discharge, on 10/26/16, shows a white blood cell count of 5.1, hemoglobin of 11.2, hematocrit 34, and platelets of 259. Sodium was 138, potassium 3.4, chloride 103, carbon dioxide 32, BUN 9, creatinine 0.32. Microbiology studies were positive, nasal swab was positive for MRSA. Urine tests were negative for legionella and Strep pneumo antigen. Urine cultures were positive for aerococcus species. Blood cultures were negative to date. Abdomen and pelvis CT obtained on 10/23/16, impression: Bibasilar consolidative changes. Suggests followup x-ray. Bilateral nonobstructive nephrolithiasis. Small amount of free fluid, mesenteric edema, and ascites. Suspect mild lymphadenopathy. Evaluation is limited without oral contrast. Large to moderately retained stool with "colonic distention." Chest CT obtained on 10/23/16, impression: There is opacification of right main bronchus and its branches resulting in right middle and lower lobe consolidation and right pleural effusion. Aspiration pneumonia is within the differential. There is minimal left basilar atelectasis. There was enlargement of the pulmonary artery which may indicate pulmonary arterial hypertension. Right-sided nephrolithiasis. Ascites. CONSULTATION: During the hospital stay included, Dr. Mora from Infectious Diseases. HOSPITALIZATION COURSE: Jordy Rob is a 66-year-old male with history of developmental delay and seizure disorder as well as recurrent aspiration. The patient at baseline has a very large tongue which contributes to his chronic dysphagia. He presented to the hospital with acute respiratory failure due to another aspiration. The CT of the chest showed chronic changes in the right lung as mentioned above. He initially was treated with broad-spectrum antibiotics, but later on he was seen by Dr. Mora in consultation and was eventually placed on doxycycline. He also was noted to have urine cultures positive for aerococcus, and diagnosed with prostatitis. Dr. Mora recommended a total of 4 weeks of treatment for prostatitis with doxycycline. The patient did reasonably well at this time during his hospital stay and he is being discharged home on 2 L of continuous oxygen. His diet at discharge is pureed and pudding thick liquids. Please also note that the patient has two stage II decubitus ulcers on his sacrum which are 2 to 4 cm in diameter each. They do not appear to be infected at discharge. The patient had been seen at wound care clinic with Dr. Maldonado and that is recommended to be continued. At discharge, the patient is also recommended to follow up with Dr. Cordova in approximately 4 to 7 days. While on antibiotics, the patient is recommended to have a CBC, complete metabolic panel, and CRP drawn on a weekly basis. PHYSICAL EXAMINATION: At the time of discharge, blood pressure of 150/88, heart rate of 64 and regular, respiratory 18, oxygen saturation 98% on 2 L of oxygen nasal cannula, temperature of 96.4. General: Very pleasant 66-year-old male who is awake, nonverbal at baseline, alert. The patient does not follow commands at baseline. He has a large protruding tongue. HEENT: Head atraumatic, normocephalic. Eyes: Pupils are equal, reactive to light and accommodation. Oropharynx clear. Mucosa moist. Neck: Supple. No JVD. No bruits bilaterally. Cardiovascular: Regular rate and rhythm. No murmur. Respiratory: Coarse rhonchi in upper lung luna, cleared with cough. Abdomen : Slightly distended, soft, nontender. Bowel sounds are present in all 4 quadrants. Extremities: There is no edema. Pulses +2 bilaterally. There is no clubbing or cyanosis. Neuro Evaluation. The patient is nonverbal. He is notable for muscle hypotonia throughout. On evaluation of the skin, the patent has stage II two sacral decubitus ulcers noted on the both sides of the patient' s vertebral column. They are 2 x 4 cm in diameter each. There is no evidence of infection. Please note that this is a short summary of the patient's hospital stay. Please refer to further medical records for details. TIME SPENT: Approximately 50 minutes was spent on the patient's discharge. CC: Dr. Cordova; Dr. Maldonado* [id number]/[facility] #: [id number] MTDD
== END 2016-10-28 13:30 | DRG 177 ==
LOC: ED 01:18 → ICU 04:37 → MED 13:33
PROVIDERS: ADMIT Hospitalist; ATTEND Internal Medicine
DX: J69.0 Pneumonitis due to inhalation of food and vomit (principal); J96.01 Acute respiratory failure with hypoxia; L89.152 Pressure ulcer of sacral region, stage 2; R18.8 Other ascites; I27.2 Other secondary pulmonary hypertension; R13.11 Dysphagia, oral phase; N39.0 Urinary tract infection, site not specified; J98.11 Atelectasis; N41.9 Inflammatory disease of prostate, unspecified; B96.89 Other specified bacterial agents as the cause of diseases classified elsewhere; B95.62 Methicillin resistant Staphylococcus aureus infection as the cause of diseases classified elsewhere; E11.9 Type 2 diabetes mellitus without complications; I10 Essential (primary) hypertension; E78.5 Hyperlipidemia, unspecified; G40.909 Epilepsy, unspecified, not intractable, without status epilepticus; M19.90 Unspecified osteoarthritis, unspecified site; N40.0 Benign prostatic hyperplasia without lower urinary tract symptoms; F81.9 Developmental disorder of scholastic skills, unspecified; L28.0 Lichen simplex chronicus; Z88.1 Allergy status to other antibiotic agents; Z88.0 Allergy status to penicillin; Z88.8 Allergy status to other drugs, medicaments and biological substances; Z79.1 Long term (current) use of non-steroidal anti-inflammatories (NSAID); Z79.82 Long term (current) use of aspirin; Z79.899 Other long term (current) drug therapy
CPT/HCPCS: 36415; 71020; 71250; 74176; 80048; 81003; 81015; 83605; 84134; 84145; 85025; 85049; 87040; 87077; 87086; 87502; 87641; 87899; 94667; 94668; 94760; A9270-GY; G8996-GN-CL; G8997-GN-CK; J0713; J1644; J2020; J2185; J2560

== ENCOUNTER 2016-11-13 18:00 | Inpatient (IN) | payer MEDICARE, MEDICAID ==
[2016-11-13] MEDS ORDERED: cefTRIAXone(*) 1 GM in NS 0.9% 50 ML* 50 ML IVPB ONE (18:15)
[2016-11-13] MEDS ORDERED: Azithromycin IV(*) 500 MG in NS 0.9% 250 ML* 250 ML IVPB ONE (18:15)
[2016-11-13] MEDS: NS 0.9% 1000 ML* 2,000 ML IV ONE ×2 (18:22→19:01)
--- NOTE | 2016-11-13 18:26 | RAD ---
INDICATION: Shortness of breath. COMPARISON: Comparison is made with a prior chest x-ray study from October 23, 2016. TECHNIQUE: A portable view of the chest was obtained. FINDINGS: The heart is within normal limits in size. The lungs are underinflated. There is a perihilar infiltrate present on the left side and a small infiltrate present at the medial right lung base. The infiltrate at the right lung base has improved. There has been interval resolution of the previously noted right pleural effusion. IMPRESSION: 1. BILATERAL INFILTRATES WITH IMPROVEMENT AT THE RIGHT LUNG BASE. 2. INTERVAL RESOLUTION OF RIGHT PLEURAL EFFUSION.
[2016-11-13 18:29] LABS: Hematocrit 38 % (42-52); Hemoglobin 12.1 g/dl (14.0-18.0); Mean Corpuscular HGB Conc 32 g/dl (31-36); Mean Corpuscular Hemoglobin 33 pg (27-31); Mean Corpuscular Volume 103 fL (80-94); Red Blood Count 3.66 10^6/ul (4.0-5.4); Red Cell Distribution Width 15 % (10.5-15); White Blood Count 9.7 10^3/ul (3.5-10.8)
[2016-11-13 18:30] LABS: Comments Flag Yes
[2016-11-13 18:52] LABS: Albumin 3.4 g/dL (3.2-5.2); Calcium 10.1 mg/dL (8.6-10.3); EGFR African American 207.9 (>60); EGFR Non-African American 161.6 (>60); Globulin 3.8 g/dL (2-4); Potassium 4.4 mmol/L (3.5-5.0); Total Bilirubin 0.2 mg/dL (0.2-1.0); Total Protein 7.2 g/dL (6.4-8.9)
[2016-11-13 18:53] LABS: Troponin I 0.01 ng/mL (<0.04)
[2016-11-13 18:58] LABS: Add Diff/Slide Review? Slide Review Added
[2016-11-13] MEDS ORDERED: Acetaminophen TAB* 325 MG PO PRN (19:31)
[2016-11-13] MEDS ORDERED: Dextrose 50% Syringe 50 ML* 25 GM/50 ML SYRINGE IV PUSH PRN (19:31)
[2016-11-13] MEDS ORDERED: Ondansetron INJ* 2 MG/ML VIAL IV PRN (19:31)
[2016-11-13] MEDS ORDERED: Meropenem 1 GM PREMIX(*) 1 GM/50 ML BAG IV SCH (20:00)
[2016-11-13] MEDS ORDERED: Naloxone* 0.4 MG/ML 10 ML VIAL ONE (20:15)
[2016-11-13] MEDS ORDERED: Flumazenil* 0.1 MG/ML 5 ML MDV ONE (20:15)
[2016-11-13] MEDS ORDERED: fentaNYL* 50 MCG/ML 5 ML VIAL (250 MCG VIAL) ONE (20:15)
[2016-11-13] MEDS ORDERED: Midazolam* 1 MG/ML 10 ML VIAL (10 MG) ONE (20:16)
[2016-11-13] MEDS ORDERED: Propofol* 100 ML ONE (20:30)
--- NOTE | 2016-11-13 20:51 | RAD ---
INDICATION: Intubation. COMPARISON: Comparison is made with a prior chest x-ray study of the same date from approximately 2 hours earlier. TECHNIQUE: A portable view of the chest was obtained. FINDINGS: The patient is status post intubation. The endotracheal tube tip projects just below the level of the clavicular heads. The heart is within normal limits in size. There is a patchy infiltrate in the left perihilar region and infiltrates at both lung bases which appear slightly more prominent than on the recent prior study. There is volume loss in the right lung which is unchanged. No pleural effusion is seen. IMPRESSION: 1. STATUS POST INTUBATION. 2. BILATERAL INFILTRATES SLIGHTLY MORE PROMINENT THAN ON THE PRIOR STUDY.
[2016-11-13] MEDS ORDERED: Propofol* 1000 MG (10 MG/ML 100 ml) @ Per Protocol (in ICU Pyxis) IV SCH (21:00)
[2016-11-13] MEDS ORDERED: Propofol* 100 ML IV SCH (21:00)
--- NOTE | 2016-11-13 22:32 | HP ---
HISTORY AND PHYSICAL: DATE OF ADMISSION: 11/13/16 PRIMARY CARE PROVIDER: Dr. Cordova. ATTENDING PHYSICIAN WHILE IN THE HOSPITAL: Dr. Marcus Cooley * (report dictated by Kris Lainez NP). CHIEF COMPLAINT: 1. Hypoxia. 2. Altered mental status. HISTORY OF PRESENT ILLNESS: I will preface this report by saying the patient has an underlying significant intellectual developmental delay. He is nonverbal. He cannot really make his needs known to me at this point. He comes into the ER today because he resides at [facility]. They noticed that he was more drowsy. They checked his O2 saturation. It was 78%. They noticed that he was drooling. There was no reported fever at this time around. There were no reported episodes of vomiting, diarrhea. No choking episodes were reported, but there was concern he was not acting at this baseline. They were concerned and have the patient come into hospital for evaluation. Here in the ER, it was noted that he was hypoxic. He had a new infiltrate on the left x-ray and the hospitalist service was asked to evaluate for admission. PAST MEDICAL HISTORY: According to records include: 1. Diabetes. 2. Hypertension. 3. Hyperlipidemia. 4. Seizure. 5. Intellectual developmental delay. 6. Anxiety. 7. Neurodermatitis. 8. Arthritis. 9. BPH. PAST SURGICAL HISTORY: Unable to be obtained. HOME MEDICATIONS: Include: 1. Doxycycline 100 mg p.o. b.i.d. 2. Simvastatin 20 mg daily. 3. Phenytoin 200 mg p.o. daily. 4. Proscar 5 mg daily. 5. Phenobarbital 60 mg p.o. b.i.d. 6. Tylenol 325 mg p.o. b.i.d. 7. Senna 1 tablet p.o. daily. 8. ACTOplus met 1 tablet p.o. daily. 9. Oyster shell calcium 1 tablet p.o. b.i.d. 10. Multivitamin 1 tablet daily. 11. Aspirin 81 mg daily. 12. MiraLAX 8.5 g p.o. daily. 13. Erythromycin 1 application to the right eye at bedtime. ALLERGIES TO MEDICATION: CLINDAMYCIN, PENICILLIN, LEVAQUIN, LINCOMYCIN, VANCOMYCIN, and LINCOSAMIDES. FAMILY HISTORY: Unknown. SOCIAL HISTORY: He is not a smoker. He does not drink alcohol. He is a [facility] patient. REVIEW OF SYSTEMS: Unable to be obtained. PHYSICAL EXAMINATION GENERAL: At this time, Mr. Rob is a 66-year-old male patient. He is sitting on the ER stretcher. He does not appear to be in any acute distress. He does appear to be drowsy, but he does respond to tactile stimuli. VITAL SIGNS: Blood pressure 131/91 with a pulse of 85, respirations 18, O2 sat was again 91% on 10 L, and his rectal temperature was 92.7. HEENT: Head atraumatic. Eyes: Sclerae anicteric. Throat: Oral mucosa appears to be moist. He does have a protruding tongue, which makes it difficult to examine his airway. NECK: Supple. LUNGS: Rhonchorous throughout. HEART: Sounds S1, S2. Regular rate and rhythm. No murmurs, rubs, or gallops. ABDOMEN: Soft, flat, nontender. EXTREMITIES: He is moving all 4 extremities grossly. No edema was noted. NEUROLOGIC: Again, he awakens to tactile stimuli. He is nonverbal and no gross obvious focal deficits. SKIN: Grossly intact. DIAGNOSTIC STUDIES/LAB DATA: Labs today revealed WBC 9.7, RBC of 3.66, hemoglobin 12.1, hematocrit 38, platelet count pending. Sodium 137, potassium 4.4, chloride of 93, bicarb 34, BUN 25, creatinine 0.51, glucose 149, lactic 4.7 , calcium 2.1, total bili 0.2, AST 18, ALT 19, alk phos 80. Troponin 0.01. Albumin 3.4. Chest x- ray today on my review shows new pulmonary infiltrate on the right side. It does appear that he has an improving aeration in the right lung. Radiology read this as bilateral infiltrates with improvement at the right lung base, interval resolution of the right pleural effusion. He had an EKG obtained today as well, which showed sinus rhythm, rate of 86. No ST elevation or T-wave inversions. He does have an intraventricular conduction delay. It appears to be similar to his previous EKG. Old medical records were reviewed. ASSESSMENT AND PLAN: Mr. Rob is a 66-year-old male patient coming into the ER today with complaints of hypoxia, altered mental status, on evaluation found to have a new infiltrate on the left lung. He will be admitted under inpatient status for: 1. Sepsis. At this point, he will be placed in the ICU, most likely he aspirated. We will put him on meropenem 1 g every 8 hours, did touch base with Dr. Mora. He will evaluate the patient in the morning. We will give him 2 L of fluid wide open. I placed him on Vapotherm. I would like to try to avoid intubation on this patient as it would be extremely difficult airway. If we do need to proceed to intubation to help better oxygenation, we may need to consider having anesthesia back up to perform this intubation, but I would like to try Vapotherm. His sats seemed to be holding right around 90% to 92% with this. 2. Diabetes. Lispro sliding scale. 3. Hypertension. We will hold his medications for the time being because he is septic. 4. Hyperlipidemia. Continue meds as prescribed. 5. Seizures. I will continue his meds and place him on seizure precautions. 6. Intellectual development delay. Supportive care. 7. History of anxiety. Continue supportive care. 8. Benign prostatic hypertrophy. Continue meds as prescribed. 9. Neurodermatitis. Not an active issue. We will follow. 10. Arthritis. Continue current medical regimen. 11. DVT prophylaxis. He will be placed on heparin subcu. 12. Fluid, electrolytes, nutrition. I am going to leave him NPO for the time being until we can better see where we are headed and he is going to get 2 L of fluid wide open and then will continue normal saline at 100 an hour. 13. Code status. Full code. TIME SPENT: Time spent on the admission 60 minutes, greater than half the time was spent [id number] with the patient obtaining my history and physical; other half of the time was spent going over the plan of care with the patient and implementing the plan of care. I discussed the plan of care with my attending, Dr. Cooley, who is in agreement. KRIS LAINEZ NP CC: Dr. Cordova * [id number]/[facility] #: [id number] MTDZev
[2016-11-13] MEDS: Heparin VIAL(*) 5000 UNITS/ML VIAL (FIVE THOUSAND) SUBCUT SCH (23:14)
[2016-11-14 00:07] LABS: Urine Bacteria Absent (Absent); Urine Bilirubin Negative (Negative); Urine Glucose Negative (Negative); Urine Nitrite Negative (Negative)
--- NOTE | 2016-11-14 00:15 | ED ---
Snehal Gibbs Erika, scribed for Arnold Gudino MD on 11/13/16 at 1832 . Shortness of Breath - HPI Summary HPI Summary: Patient is a 66-year-old male presenting to the ED with a CC of SOB today. History is provided solely by EMS - pt unable to communicate. Per EMS, pt was not responsive when they arrived, and O2 saturation was 79%. They state he is normally on 2L of O2 at home, but O2 did not seem to help at first. They gave him a one-way breather. EMS states that they were unable to obtain IV access after 2 attempts. They state pt has abdominal distension, and state that pt's O2 saturation drops when pt is supine. They report that pt was recently seen for pneumonia. LEVEL 5 CAVEAT - pt unable to communicate. - History of Current Complaint Time Seen by Provider: 11/13/16 18:02 Hx Obtained From: EMS Onset/Duration: Lasting Hours, Still Present Timing: Constant Current Severity: Moderate Dyspnea At: Rest Aggrevating Factors: Recumbent Position Alleviating Factors: EMS Tx - Allergy/Home Medications Allergies/Adverse Reactions: Allergies Allergy/AdvReac Type Severity Reaction Status Date / Time Clindamycin Allergy Severe Unknown Verified 08/31/16 23:13 Reaction Details Penicillins Allergy Severe Unknown Verified 08/31/16 23:13 Reaction Details Clindamycin/Lincomycin Allergy See Comment Verified 08/31/16 23:13 Levofloxacin [From Levaquin] Allergy Swelling Verified 08/31/16 23:13 Of Face,Lips,& Throat Lincomycin Allergy See Comment Verified 08/31/16 23:13 Vancomycin Allergy Unknown Verified 08/31/16 23:13 Reaction Details lincosamides Allergy Unknown Unknown Uncoded 08/31/16 23:13 Reaction Details Home Medications: Home Medications Multivitamins/Minerals TAB* [Theragran/minerals TAB*] 1 tab PO DAILY 11/13/16 [ History Confirmed 11/13/16] PHENobarbital TAB(*) 60 mg PO BID 11/13/16 [History Confirmed 11/13/16] Phenytoin CAP(*) [Dilantin CAP(*)] 200 mg PO DAILY 11/13/16 [History Confirmed 11/13/16] Pioglitazone HCl-Metformin HCl [Actoplus Met 15-500 mg] 1 tab PO DAILY 11/13/16 [History Confirmed 11/13/16] Simvastatin TAB(NF) [Zocor(NF)] 20 mg PO DAILY 11/13/16 [History Confirmed 11/13] PMH/Surg Hx/FS Hx/Imm Hx Endocrine/Hematology History: Reports: Hx Diabetes - II Denies: Hx Thyroid Disease Cardiovascular History: Reports: Hx Hypertension, Other Cardiovascular Problems/ Disorders - IDDM II Respiratory History: Reports: Hx Pneumonia, Other Respiratory Problems/ Disorders - PNEUMONIA, HX OF EPILEPSY Denies: Hx Asthma, Hx Chronic Obstructive Pulmonary Disease (COPD) GI History: Reports: Other GI Disorders - Hx of hemorrhoids Denies: Hx Ulcer History: Reports: Hx Kidney Stones Musculoskeletal History: Reports: Hx Arthritis Sensory History: Reports: Hx Cataracts Opthamlomology History: Reports: Hx Cataracts Neurological History: Reports: Hx Developmental Delay - intellectual developmental delay, Hx Seizures - epilepsy, Other Neuro Impairments/Disorders - epilepsy, profound IDD Psychiatric History: Reports: Hx Anxiety, Other Psychiatric Issues/Disorders - excoriation disorder - Surgical History Surgery Procedure, Year, and Place: kidney stones; skin grafts - Immunization History Date of Tetanus Vaccine: UTD Date of Influenza Vaccine: UTD Infectious Disease History: Reports: Hx of Known/Suspected MRSA Denies: Hx Clostridium Difficile, Hx Hepatitis, Hx Human Immunodeficiency Virus (HIV), Hx Shingles, Hx Tuberculosis - Family History Known Family History: Positive: Unknown - The patient has Intellectual and Developmental Disabilities - Social History Lives: At [facility] Alcohol Use: None Hx Substance Use: No Substance Use Type: Reports: None Hx Tobacco Use: No Smoking Status (MU): Never Smoked Tobacco Review of Systems - ROS Summary Review of Systems Summary: LEVEL 5 CAVEAT - pt unable to communicate Positive: Shortness Of Breath Gastrointestinal: Other - distended abdomen All Other Systems Reviewed And Are Negative: No Physical Exam Triage Information Reviewed: Yes Vital Signs On Initial Exam: Temp Pulse Resp BP Pulse Ox 95.5 F 86 18 130/95 93 11/13/16 18:04 11/13/16 18:04 11/13/16 18:04 11/13/16 18:04 11/13/16 18:04 Vital Signs Reviewed: Yes Completion Of Physical Exam Limited Due To: Level 5 Appearance: Positive: Well-Appearing, No Pain Distress Skin: Positive: Warm, Skin Color Reflects Adequate Perfusion, Dry Head/Face: Positive: Normal Head/Face Inspection Eyes: Positive: Normal ENT: Positive: Normal ENT inspection Neck: Positive: Supple, Nontender Respiratory/Lung Sounds: Positive: Other - Coarse upper airway sounds obscuring lung sounds Cardiovascular: Positive: Tachycardia - on exam Abdomen Description: Positive: Nontender, Distended Bowel Sounds: Positive: Present Musculoskeletal: Positive: Normal, Other - No peripheral edema Neurological: Positive: Normal Psychiatric: Positive: Affect/Mood Appropriate Procedures - Intubation Intubation Method: orotracheal Tube Size (cm): 8.0 Medications: Versed - 2 mgs Breath Sounds after Intubation: left greater than right Intubation Complications: no complications Post Intubation Xray: Yes - Tube is good Diagnostics - Vital Signs Vital Signs Temp Pulse Resp BP Pulse Ox 11/13/16 18:29 92.7 F 85 15 131/91 91 11/13/16 18:04 95.5 F 86 18 130/95 93 - Laboratory Lab Results: Lab Results 11/13/16 11/13/16 11/13/16 Range/Units 18:00 18:00 18:00 WBC 9.7 (3.5-10.8) 10^3/ul RBC 3.66 L (4.0-5.4) 10^6/ul Hgb 12.1 L (14.0-18.0) g/dl Hct 38 L (42-52) % MCV 103 H (80-94) fL MCH 33 H (27-31) pg MCHC 32 (31-36) g/dl RDW 15 (10.5-15) % Plt Count (150-450) 10^3/ul MPV TNP Neut % (Auto) 88.8 H (38-83) % Lymph % (Auto) 5.4 L (25-47) % Daniels % (Auto) 5.4 (1-9) % Eos % (Auto) 0.1 (0-6) % Baso % (Auto) 0.3 (0-2) % Absolute Neuts (auto) 8.6 H (1.5-7.7) 10^3/ul Absolute Lymphs (auto) 0.5 L (1.0-4.8) 10^3/ul Absolute Monos (auto) 0.5 (0-0.8) 10^3/ul Absolute Eos (auto) 0 (0-0.6) 10^3/ul Absolute Basos (auto) 0 (0-0.2) 10^3/ul Absolute Nucleated RBC 0.01 10^3/ul Nucleated RBC % 0.1 Sodium 137 (133-145) mmol/L Potassium 4.4 (3.5-5.0) mmol/L Chloride 93 L (101-111) mmol/L Carbon Dioxide 34 H (22-32) mmol/L Anion Gap 10 (2-11) mmol/L BUN 25 H (6-24) mg/dL Creatinine 0.51 L (0.67-1.17) mg/dL Est GFR ( Amer) 207.9 (>60) Est GFR (Non-Af Amer) 161.6 (>60) BUN/Creatinine Ratio 49.0 H (8-20) Glucose 149 H (70-100) mg/dL Lactic Acid 4.7 H* (0.5-2.0) mmol/L Calcium 10.1 (8.6-10.3) mg/dL Total Bilirubin 0.20 (0.2-1.0) mg/dL AST 18 (13-39) U/L ALT 19 (7-52) U/L Alkaline Phosphatase 80 (34-104) U/L Troponin I 0.01 (<0.04) ng/mL Total Protein 7.2 (6.4-8.9) g/dL Albumin 3.4 (3.2-5.2) g/dL Globulin 3.8 (2-4) g/dL Albumin/Globulin Ratio 0.9 L (1-3) Result Diagrams: 11/13/16 18:00 11/13/16 18:00 Lab Statement: Any lab studies that have been ordered have been reviewed, and results considered in the medical decision making process. - Radiology CXR Radiology Interpretation Completed By: Radiologist - IMPRESSION: 1. BILATERAL INFILTRATES WITH IMPROVEMENT AT THE RIGHT LUNG BASE. 2. INTERVAL RESOLUTION OF RIGHT PLEURAL EFFUSION. - EKG 18:00 Cardiac Rate: NL - at 86 bpm EKG Rhythm: Sinus Rhythm ST Segment: Non-Specific - Non-specific ST T wave changes diffusely EKG Comparison: No Significant Change - from Re-Evaluation - Re-Evaluation First Eval Re-Evaluation Time: 20:07 Change: Worse Course/Dx - Course Course Of Treatment: Jordy was brought in by EMS for SOB after having been treated for URI symptoms. He was clearly ill but not in extremis on arrival. He was found to have pneumonia and sepsis and treated accordingly but continued to decline here in spite of vapotherm. He is not a candidate for BiPap so he was intubated and admitted to the ICU. - Diagnoses Provider Diagnoses: Respiratory decompensation, Pneumonia, Sepsis - Physician Notifications Discussed Care of Patient With: Dr. Cooley (hospitalist) at 19:00 - agrees to admit. Dr. Oneal (anesthesiologist) at 20:10 - discussed intubation of patient - Critical Care Time Critical Care Time: 30-74 min Discharge - Discharge Plan Condition: Stable Disposition: ADMITTED TO [facility] The documentation as recorded by the Snehal burt Erika accurately reflects the service I personally performed and the decisions made by me, Arnold Gudino MD.
[2016-11-14] MEDS: Acetaminophen TAB* 325 MG PO SCH ×2 (00:24→09:58)
[2016-11-14] MEDS: Insulin LISPRO* 1 UNITS UNIT SUBCUT SCH ×4 (00:24→14:07)
[2016-11-14] MEDS: PHENobarbital TAB(*) 30 MG PO SCH ×2 (00:24→09:58)
[2016-11-14] MEDS ORDERED: Norepinephrine 16MCG/ML IVPRE* 4,000 MCG/250 ML BAG IV ONE (04:15)
[2016-11-14] MEDS: NS 0.9% 1000 ML* 1,000 ML IV SCH ×2 (04:42→16:30)
[2016-11-14] MEDS ORDERED: NS 0.9% 1000 ML* 1,000 ML IV SCH (04:45)
[2016-11-14] MEDS ORDERED: NS 0.9% 500 ML* 500 ML IV ONE (05:00)
[2016-11-14] MEDS ORDERED: Norepinephrine 16MCG/ML IVPRE* 4,000 MCG/250 ML BAG IV SCH (05:00)
[2016-11-14 05:45] LABS: Hematocrit 31 % (42-52); Hemoglobin 10.4 g/dl (14.0-18.0); Mean Corpuscular HGB Conc 33 g/dl (31-36); Mean Corpuscular Hemoglobin 34 pg (27-31); Mean Corpuscular Volume 101 fL (80-94); Red Blood Count 3.11 10^6/ul (4.0-5.4); Red Cell Distribution Width 16 % (10.5-15); White Blood Count 5.4 10^3/ul (3.5-10.8)
[2016-11-14 05:46] LABS: Add Diff/Slide Review? Manual Diff Added; Comments Flag Yes
[2016-11-14 05:52] LABS: BUN/Creatinine Ratio 57.1 (8-20); Calcium 8.6 mg/dL (8.6-10.3); EGFR African American 260.1 (>60); EGFR Non-African American 202.2 (>60); Potassium 3.9 mmol/L (3.5-5.0)
[2016-11-14 06:13] LABS: Immature Granulocytes 22 % (0-9); Neutrophil % 66 % (38-83); Reactive Lymph % 1 % (0-6)
[2016-11-14 06:14] LABS: Toxic Granulation 1+
[2016-11-14] MEDS: Heparin VIAL(*) 5000 UNITS/ML VIAL (FIVE THOUSAND) SUBCUT SCH ×3 (06:27→22:07)
[2016-11-14] MEDS: Meropenem 1 GM PREMIX(*) 1 GM/50 ML BAG IV SCH ×3 (06:31→21:09)
--- NOTE | 2016-11-14 07:46 | RAD ---
INDICATION: NG tube placement COMPARISON: Chest x-ray November 13, 2016 TECHNIQUE: An AP portable view obtained at 2308 hours is submitted. FINDINGS: Bones/Soft Tissues: There are no acute bony findings. There is an endotracheal tube in satisfactory position. There is interval placement of a nasogastric tube terminating in the fundus of the stomach. Cardiomediastinal: Prominent cardiac silhouette, unchanged. Lungs: Extensive left-sided alveolar infiltrative change. This is a stable finding. Pleura: Small left-sided effusion. Other: None IMPRESSION: ENDOTRACHEAL TUBE IN SATISFACTORY POSITION. INTERVAL PLACEMENT OF NASOGASTRIC TUBE POSITION DESCRIBED IN THE FUNDUS OF THE STOMACH. EXTENSIVE INFILTRATIVE CHANGE PREDOMINANTLY ON THE LEFT
[2016-11-14] MEDS ORDERED: Phenytoin CAP(*) 100 MG CAP.ER PO SCH (09:00)
[2016-11-14] MEDS ORDERED: Aspirin EC Low Dose* 81 MG TAB.EC PO SCH (09:00)
[2016-11-14] MEDS ORDERED: Finasteride TAB* 5 MG PO SCH (09:00)
[2016-11-14] MEDS: Atorvastatin* 10 MG TAB PO SCH (10:04)
--- NOTE | 2016-11-14 13:49 | PN ---
Progress Note - Progress Note Note: CRITICAL CARE MEDICINE Date: 11/14/16 Time: 1200 SUBJECTIVE: Patient seen and examined. PHYSICAL EXAM: Vital Signs: Reviewed. Neurologic: movement to pain still coming off propofol (baseline non verbal, lacks communication per staff at bedside) HEENT: pupils reactive. Trachea midline. ett in place. morphological features for Cardiovascular: distant, S1 S2 Respiratory: rales and rhonchi on left Abdomen: Soft, nt, distended Extremities: Warm. Access: per LABS: Reviewed. IMAGING: Reviewed. MEDICATIONS: Reviewed. ASSESSMENT: 66 M with sever MR presenting with recurrent pna - question aspiration vs HCAP. Acute hypoxic resp failure Septic shock Unclear if encephalopathy present from his baseline Severe MR PLAN: Neurologic: try and stay off sedation for now. Cardiovascular: Perfusing. volume status met. wean off levophed. Respiratory: aprv adjusted. will take time. sputum cx Gastrointestinal: start tf. sup Renal/Metabolic: f/u karen post low flow state. Infectious Disease: on Meropenum and add linezolid (given allergies) to cover for hcap. could be more of an aspiration but significant airspace disease. Hematology: stable. f/u plt Endocrine: glu ok. ssi prn Musculoskeletal: wound care to avoid further skin breakdown Psych/Social: d/w briefly residential child care counselor at bedside Supportive and preventative care as ordered. SUP: ppi VTE prophylaxis: heparin Cortez catheter given critical illness, monitoring needs for accurate assessment of KAREN and KDIGO criteria for critically ill patients and to avoid potential harms of urinary retention, skin breakdown/ulcers. Disposition: ICU Code Status: Full Critical Care Time: 35min Musa Philip DO
[2016-11-14] MEDS: Linezolid 600 MG IVPREMIX(*) 600 MG/300 ML BAG IVPB SCH (14:16)
[2016-11-14] MEDS: Chlorhexidine MOUTHWASH 0.12%* 15 ML UDC TOPICAL SCH ×3 (15:27→20:46)
[2016-11-14] MEDS: Norepinephrine 16MCG/ML IVPRE* 4,000 MCG/250 ML BAG IV SCH ×2 (17:54→19:00)
[2016-11-14] MEDS ORDERED: NS 0.9% 1000 ML* 1,000 ML IV ONE (19:15)
--- NOTE | 2016-11-14 19:52 | CONS ---
CONSULTATION REPORT: DATE OF CONSULT: 11/14/16 REQUESTING PROVIDER: Kris Lainez NP CONSULTING SERVICE: Infectious Disease. REASON FOR CONSULT: Pneumonia, respiratory failure. IMPRESSION: 1. Acute hypoxemic respiratory failure. 2. Pneumonia, left-sided infiltrate with likely aspiration and aspiration pneumonitis. 3. Permanent intellectual developmental delay. 4. Septic shock present on admission, still requiring vasopressors. 5. Hypothermia present on admission, resolved. 6. Allergy to PENICILLIN, CLINDAMYCIN, LEVOFLOXACIN, and VANCOMYCIN. RECOMMENDATION: Agree with meropenem 1 g IV every 8 hours. He is stable now. We will also continue the same antibiotic therapy to see if he can be weaned off his pressors today, we can always reconsider his coverage if he has not continued to make progress. HISTORY OF PRESENT ILLNESS: This is a 66-year-old man with permanent intellectual developmental delay, who was recently in the hospital with bilateral pulmonary infiltrates and a likely aeromonas prostatitis, was discharged on oral doxycycline and apparently had been doing well. He cannot provide any of the subsequent history because of his acute on chronic mental status issues, which was obtained instead from discussion with Kris Lainez NP , review of the medical records, and with his complaint manager who is here with him from [facility]. He had become less awake. His oxygen saturation was checked at the [facility], it was in the 70s on room air. He was transported to the hospital, white count was 9, he was hypothermic to 92 degrees , saturating in the 70s, he was hypotensive and tachycardic. He was started on fluids. He had progressive respiratory distress and hypoxemia. He was intubated overnight. Chest x-ray had shown left-sided infiltrate with progression but clearance at the right base. PAST MEDICAL HISTORY: 1. Permanent intellectual developmental delay. 2. Diabetes. 3. Hypertension. 4. Hyperlipidemia. 5. Seizure disorder. 6. Anxiety. 7. Neurodermatitis. 8. Arthritis. 9. Benign prostatic hypertrophy with prostatitis currently. MEDICATIONS: 1. Meropenem 1 g IV every 8 hours. 2. Aspirin. 3. Tylenol. 4. Lipitor. 5. Finasteride. 6. Heparin subcutaneous injection. 7. Norepinephrine infusion. 8. Phenobarbital. 9. Phenytoin. 10. Propofol infusion. ALLERGIES: VANCOMYCIN, LEVAQUIN, CLINDAMYCIN, PENICILLIN. FAMILY HISTORY: Unobtainable. SOCIAL HISTORY: Lives at [facility] [employer] [facility] [employer]. He has no sick contacts, no flu outbreak apparently where he is living. REVIEW OF SYSTEMS: Unobtainable. PHYSICAL EXAM: Vital Signs: Temperature 36.6, heart rate is 89, respiratory rate 13, oxygen saturation 99%, FiO2 is 80%, blood pressure 80/58. In general, he is intubated and sedated. Neurologically, he has contractures of the lower extremities bilaterally. HEENT: There is no conjunctival hemorrhage. Oropharynx without lesions. He has what appears to be edema of the tongue and lip, which is chronic. Neck is supple without nuchal rigidity. Lymph Nodes: There is no visible or palpable lymphadenopathy. Heart has regular rate and rhythm without murmurs, rubs, or gallops. Lungs have decreased breath sounds in the bases bilaterally with rhonchi in the left lung luna. Abdomen is soft , bowel sounds are present, nondistended. Skin: There is no rash or splinter hemorrhages. Musculoskeletal: There is no joint synovitis. LABORATORY DATA: White blood cell count 5.4, hemoglobin 10.4, platelets were clumped and not reported, bands were 23%. Creatinine 0.4. Lactate is 3 down from 4.7. Please see impressions and recommendations as outlined above. Thanks for asking me to see Mr. Rob in consultation. [id number]/[facility] #: [id number] CHITRA
[2016-11-14] MEDS: Acetaminophen ADULT LIQ* 650 MG/20.3 ML UDC PO SCH (20:45)
[2016-11-14] MEDS: Aspirin EC Low Dose* 81 MG TAB.EC PO SCH (20:46)
[2016-11-14] MEDS: Phenytoin SUSP(*) 100 MG/4 ML UDC (100 MG) G TUBE SCH (20:47)
[2016-11-14] MEDS: Acetaminophen ADULT LIQ* 650 MG/20.3 ML UDC PO PRN (20:50)
[2016-11-14] MEDS: PHENobarbital LIQ(*) 30 MG/7.5 ML UDC PO SCH (20:52)
--- NOTE | 2016-11-14 20:59 | CONS ---
PALLIATIVE CARE CONSULTATION REPORT: DATE OF CONSULTATION: 11/14/16 PRIMARY CARE PHYSICIAN: Thee Cordova MD. REQUESTING PROVIDER FOR CONSULTATION: Kris Lainez NP. REASON FOR CONSULTATION: Evaluation for advance directives and hospice eligibility. HISTORY OF PRESENT ILLNESS: This is a 66-year-old male with a past medical history of recurrent aspiration pneumonia, chronic dysphagia, and chronic lung disease, on continuous oxygen, also with profound developmental delay, who presented from his long-term to the [facility] with hypoxia noted as high as in the 70s. The patient on admission was found to have bilateral infiltrates , worse on the right, showing some improvement on the right lung with resolution of the pleural effusion. The patient was placed on Vapotherm initially and was admitted to the ICU. Prior to arriving to the ICU, the patient became more unresponsive and he was subsequently intubated in the emergency room. The patient has been placed on broad spectrum antibiotics. He is also on Levophed and the loom control chain builder, Dr. Philip, has taken over his care. Speaking with the [facility]'s residential nursing cloth brushing and sueding supervisor, Barbara Yoo, the patient has been on continuous oxygen 2 L since his admission in August, he is wheelchair bound, nonambulatory. He is mostly is dependent in all of his ADLs. He states in the last week, he was trying to feed himself and he is able to communicate by grunting, shaking his head or covering his eyes with his hands. He also pulls on his oxygen tubing to communicate. She has also noted that he has not seemed to bounce back as well with each admission , this is now the 4th, in the past 4 months. I also was able to touch base with his primary care provider, Dr. Cordova, who has taken care of him for the past 2 years and has noted a rather significant decline in his medical condition. On my evaluation, the patient is minimally responsive, only responds to tactile stimulation minimally. He is intubated. He has not been on sedation for the past 4 hours and unable to answer any questions or follow any commands. Unable to obtain any review of systems. PAST MEDICAL HISTORY: 1. Recurrent admissions. The patient has had 2 admissions in August 2016 for respiratory failure/aspiration pneumonia and an admission in October 2016 for respiratory failure and acute prostatitis. 2. History of profound intellectual developmental disability. 3. History of seizure disorder. 4. History of prostatitis, on antibiotics. 5. History of recurrent aspiration with chronic dysphagia. 6. Osteoarthritis. 7. Hypertension. 8. BPH. 9. Constipation. 10. History of chronic decubitus ulcer with poor wound healing. 11. Hyperlipidemia. 12. Chronic lung disease, on continuous 2 L. 13. Neurodermatitis. 14. Anxiety. 15. Diabetes. OUTPATIENT MEDICATIONS: 1. Doxycycline 100 mg p.o. b.i.d. 2. Simvastatin 20 mg daily. 3. Phenytoin 200 mg p.o. daily. 4. Proscar 5 mg daily. 5. Phenobarbital 60 mg p.o. b.i.d. 6. Tylenol 325 mg p.o. b.i.d. 7. Senna 1 tablet daily. 8. ACTOplus Met 1 tablet p.o. daily. 9. Oyster shell calcium tab p.o. b.i.d. 10. Multivitamin daily. 11. Aspirin 81 mg daily. 12. MiraLAX 8.5 g p.o. daily. 13. Erythromycin application to the right eye at bedtime. ALLERGIES: CLINDAMYCIN, PENICILLIN, LEVOFLOXACIN, VANCOMYCIN, LINCOSAMIDES. FAMILY HISTORY: Unable to obtain. SOCIAL HISTORY: The patient as mentioned resides in a long-term through the [employer] [facility]. He is minimally verbal. He is nonambulatory. He communicates with grunting, shaking his head, saying no and covering his eyes and pulling on his oxygen tubing. He has a pureed diet with putting thick liquids. He does not have a legal guardian or any family member. No history of smoking, alcohol , or illicit drug use. REVIEW OF SYSTEMS: Unable to obtain. PHYSICAL EXAMINATION: GENERAL: The patient is intubated. VITAL SIGNS: Temp 96.3, pulse 112, respiratory rate is 15, oxygen saturation 97 %, the patient is intubated, blood pressure is 107/71. HEENT: The patient has dysmorphic facial features. He has got macroglossia. Pupils are pinpoint and sluggish, anicteric. Head: Macrocephalic. Oropharynx : The patient with ET tube and OG tube. RESPIRATORY: Diminished breath sounds. Rhonchi in the left lung. CARDIAC: Tachycardia, soft systolic murmur heard throughout. ABDOMEN: Hypoactive bowel sounds. Soft. EXTREMITIES: +1 pretibial edema and pedal edema. His lower extremities are atrophied and contracted. NEUROLOGIC: The patient is minimally responsive, unable to follow commands. Unable to appreciate any spontaneous movement other than slight movement of his head and eye opening. LABORATORY DATA: White count 5.4, hemoglobin 10.4, hematocrit 31, platelets not reportable. INR 1.05, sodium 138, potassium 3.9, chloride 100, bicarb 32, BUN 24, creatinine 0.42, glucose 106, lactic acid 3. ASSESSMENT AND RECOMMENDATION: This is a 66-year-old male with the past medical history of chronic lung disease, on continuous oxygen with recurrent aspiration and chronic dysphagia with profound intellectual developmental disability who has declined over the past several months who now presents hypoxic, in respiratory failure and is intubated. Palliative care consultation was requested for advance care planning and hospice eligibility. The patient does not fit criteria for hospice at this time. He does have chronic lung disease. He is on continuous oxygen. This is his first intubation event. It is unclear how he will respond once he is extubated as Dr. Philip does expect that he will be extubated. After speaking with Barbara Yoo and his primary care physician, Dr. Cordova, everyone is in agreement that he has declined over the past several months and addressing his DNR/DNI status once he is extubated is most certainly worthwhile. If he does not do well post extubation, then a surrogate decision making committee convening is appropriate. If he has a prolonged intubation course and has difficulty weaning , then I think initiating surrogate decision making community sooner rather than later is also appropriate. Barbara Yoo is going to speak with the psychologist as well to get his capacity determination evaluation completed in case it is needed if the surrogate decision making committee convenes. Thank you for this consultation. I will follow along with you. TIME SPENT: Greater than 90 minutes was spent doing this consultation, more than half the time was spent in direct patient contact. CC: Thee Cordova MD* [id number]/[facility] #: [id number] CHITRA
[2016-11-15] MEDS: NS 0.9% 1000 ML* 1,000 ML IV SCH (00:17)
[2016-11-15] MEDS: Linezolid 600 MG IVPREMIX(*) 600 MG/300 ML BAG IVPB SCH ×2 (00:24→12:47)
[2016-11-15] MEDS: Insulin LISPRO* 1 UNITS UNIT SUBCUT SCH ×5 (00:24→17:46)
[2016-11-15] MEDS: Chlorhexidine MOUTHWASH 0.12%* 15 ML UDC TOPICAL SCH ×6 (00:36→21:31)
[2016-11-15] MEDS: Norepinephrine 16MCG/ML IVPRE* 4,000 MCG/250 ML BAG IV SCH ×2 (03:14→20:25)
[2016-11-15 05:27] LABS: Hematocrit 32 % (42-52); Hemoglobin 10.5 g/dl (14.0-18.0); Mean Corpuscular HGB Conc 33 g/dl (31-36); Mean Corpuscular Hemoglobin 33 pg (27-31); Mean Corpuscular Volume 101 fL (80-94); Mean Platelet Volume 11 um3 (7.4-10.4); Red Blood Count 3.15 10^6/ul (4.0-5.4); Red Cell Distribution Width 16 % (10.5-15); White Blood Count 12.3 10^3/ul (3.5-10.8)
[2016-11-15 05:33] LABS: Add Diff/Slide Review? Slide Review Added; Comments Flag Yes
[2016-11-15] MEDS: Heparin VIAL(*) 5000 UNITS/ML VIAL (FIVE THOUSAND) SUBCUT SCH ×4 (05:43→21:32)
[2016-11-15 05:45] LABS: Albumin 2.6 g/dL (3.2-5.2); BUN/Creatinine Ratio 63.8 (8-20); Calcium 8.5 mg/dL (8.6-10.3); EGFR African American 228.4 (>60); EGFR Non-African American 177.6 (>60); Globulin 3.3 g/dL (2-4); Magnesium 1.6 mg/dL (1.9-2.7); Phosphorus 3.1 mg/dL (2.5-5.0); Potassium 3.7 mmol/L (3.5-5.0); Total Bilirubin 0.2 mg/dL (0.2-1.0); Total Protein 5.9 g/dL (6.4-8.9)
[2016-11-15 05:51] LABS: Phenytoin 13.2 mcg/mL (10-20)
[2016-11-15] MEDS: Meropenem 1 GM PREMIX(*) 1 GM/50 ML BAG IV SCH ×3 (06:26→21:32)
[2016-11-15 06:40] LABS: Comments Flag Yes; Platelet Count, Citrated 85 10^3/ul (150-450)
[2016-11-15] MEDS: Acetaminophen ADULT LIQ* 650 MG/20.3 ML UDC PO SCH ×2 (09:26→21:31)
[2016-11-15] MEDS: Atorvastatin* 10 MG TAB PO SCH (09:26)
[2016-11-15] MEDS: PHENobarbital LIQ(*) 30 MG/7.5 ML UDC PO SCH ×2 (09:26→21:31)
[2016-11-15] MEDS: Lansoprazole SOLUTAB* 30 MG G TUBE SCH (09:26)
[2016-11-15] MEDS: Phenytoin SUSP(*) 100 MG/4 ML UDC (100 MG) G TUBE SCH ×2 (09:27→21:31)
[2016-11-15] MEDS ORDERED: NS 0.9% 1000 ML* 1,000 ML IV SCH (09:56)
[2016-11-15] MEDS ORDERED: Magnesium Sulfate 2 GM IV* 2 GM/50 ML BAG IVPB ONE (09:57)
--- NOTE | 2016-11-15 11:05 | PN ---
Progress Note - Progress Note Note: Palliative care follow up note: Patient more alert this AM. Weaning vent settings and per Dr. Philip tolerating this well. Also weaning down the Levophed. Awakes to tactile stimuli. Rhonchorous breath sounds over left lung. Abdomen slightly firm. It appears that patient will be successful with extubation over the next few days. The question remains how his respiratory status will be post extubation. He has chronic lung disease, oxygen dependent with recurrent aspiration and dysphagia. He has declined over the past several months and is certainly at high risk for recurrent respiratory failure. A [facility] meeting to discuss advanced care planning with [facility] and the [facility] is appropriate when indicated.
--- NOTE | 2016-11-15 11:56 | PN ---
Progress Note - Progress Note Note: CRITICAL CARE MEDICINE Date: 11/15/16 Time: 1120 SUBJECTIVE: Patient seen and examined. more awake. overbreathing vent. not able to follow commands PHYSICAL EXAM: Vital Signs: Reviewed. Neurologic: movement to tactile and eye opening. HEENT: pupils reactive. Trachea midline. ett in place. morphological features for mr with large lips and tongue at baseline Cardiovascular: distant, S1 S2 Respiratory: much more open and relatively clear. Abdomen: Soft, nt, less distention Extremities: Warm. Access: picc LABS: Reviewed. IMAGING: Reviewed. MEDICATIONS: Reviewed. ASSESSMENT: 66 M with sever MR presenting with recurrent pna - question aspiration vs HCAP. Acute hypoxic resp failure Septic shock Unclear if encephalopathy present from his baseline Severe MR PLAN: Neurologic: off sedation; follow for pain, but not seeing overtly. Other risk is delirium. difficulty to know Cardiovascular: Perfusing. volume status met and would like to see mobilization. slow to wean off levophed but should get there today. can be at risk for adrenal suppression and may benefit from steroids given his always airway concerns too as we look to liberate. Would add stress dose steroids then. Respiratory: aprv adjusted and markedly improved. Good spont volumes. Allow time to foster secretion clearance while artificial airway in place. Hopefully can move towards liberation in the next 48-72hrs and see if he can handle secretions from there. Need to maximize lungs best as able prior to liberation given his airway anatomic morphology and mental limits for coaching. If he can liberate fantastic. If he falters, cannot, or requires re-intubation after tx for his acute ailment, we may be dealing with a more ominous sign of mortality limits. time currently to discern Gastrointestinal: adjusted tf. sup Renal/Metabolic: f/u karen, Uoput coming back up. Infectious Disease: on Meropenum and add linezolid (given allergies) to cover for hcap. Hematology: stable. f/u plt. hsq ok Endocrine: glu up and blunt with lantus and ssi Musculoskeletal: wound care to avoid further skin breakdown; deconditioning will remain Psych/Social: time and support Supportive and preventative care as ordered. SUP: ppi VTE prophylaxis: heparin Cortez catheter given critical illness, monitoring needs for accurate assessment of KAREN and KDIGO criteria for critically ill patients and to avoid potential harms of urinary retention, skin breakdown/ulcers. Disposition: ICU Code Status: Full Critical Care Time: 35min FCynthia Philip DO
[2016-11-15] MEDS: Insulin GLARGINE(*) 1 UNITS UNIT SUBCUT SCH (12:45)
[2016-11-15] MEDS: Hydrocortisone INJ* 100 MG VIAL IV SCH ×2 (12:46→17:45)
[2016-11-15] MEDS: Aspirin EC Low Dose* 81 MG TAB.EC PO SCH (21:32)
[2016-11-16] MEDS: Linezolid 600 MG IVPREMIX(*) 600 MG/300 ML BAG IVPB SCH ×2 (00:16→12:39)
[2016-11-16] MEDS: Hydrocortisone INJ* 100 MG VIAL IV SCH ×4 (00:27→17:30)
[2016-11-16] MEDS: Insulin LISPRO* 1 UNITS UNIT SUBCUT SCH ×4 (00:27→17:30)
[2016-11-16] MEDS: Chlorhexidine MOUTHWASH 0.12%* 15 ML UDC TOPICAL SCH ×6 (04:00→21:19)
[2016-11-16] MEDS: Heparin VIAL(*) 5000 UNITS/ML VIAL (FIVE THOUSAND) SUBCUT SCH ×3 (05:56→21:36)
[2016-11-16] MEDS: Meropenem 1 GM PREMIX(*) 1 GM/50 ML BAG IV SCH ×3 (05:57→21:36)
[2016-11-16 06:57] LABS: Hematocrit 29 % (42-52); Hemoglobin 9.4 g/dl (14.0-18.0); Mean Corpuscular HGB Conc 33 g/dl (31-36); Mean Corpuscular Hemoglobin 33 pg (27-31); Mean Corpuscular Volume 101 fL (80-94); Mean Platelet Volume 12 um3 (7.4-10.4); Red Blood Count 2.87 10^6/ul (4.0-5.4); Red Cell Distribution Width 15 % (10.5-15); White Blood Count 14.6 10^3/ul (3.5-10.8)
[2016-11-16 06:58] LABS: Add Diff/Slide Review? Slide Review Added; Comments Flag Yes
[2016-11-16 07:05] LABS: Calcium 8.8 mg/dL (8.6-10.3); EGFR Non-African American 234.1 (>60); Phosphorus 2.2 mg/dL (2.5-5.0); Potassium 3.6 mmol/L (3.5-5.0)
[2016-11-16 07:13] LABS: Comments Flag Yes; Platelet Count, Citrated 72 10^3/ul (150-450)
[2016-11-16] MEDS: Acetaminophen ADULT LIQ* 650 MG/20.3 ML UDC PO SCH ×2 (10:35→21:19)
[2016-11-16] MEDS: Atorvastatin* 10 MG TAB PO SCH (10:35)
[2016-11-16] MEDS: Lansoprazole SOLUTAB* 30 MG G TUBE SCH (10:35)
--- NOTE | 2016-11-16 10:58 | PN ---
Progress Note - Progress Note Note: CRITICAL CARE MEDICINE Date: 11/16/16 Time: 825 SUBJECTIVE: Patient seen and examined. more awake again. overbreathing vent. not able to follow commands PHYSICAL EXAM: Vital Signs: Reviewed. 0.5 mcg levo Neurologic: movement to tactile and eye opening to light stimuli HEENT: pupils reactive. ett in place. morphological features woth lips and tongue same Cardiovascular: distant, S1 S2 Respiratory: relatively clear. changed to cpap Abdomen: Soft, nt Extremities: Warm. Access: picc LABS: Reviewed. IMAGING: Reviewed. MEDICATIONS: Reviewed. ASSESSMENT: 66 M with sever MR presenting with recurrent pna - question aspiration vs HCAP. Acute hypoxic resp failure Septic shock - resolving Severe MR PLAN: Neurologic: no sedation; no overt discomforts Cardiovascular: Perfusing. volume status may be a touch up and see if he auto servicer automobilize today. if not may need a diuuretic. wean off levo today. Respiratory: to cpap today; see how he tolerates. would like some water mobilized and ensure he has >24h steroids just in case for airway and good leak prior to liberation. Would maintain cpap today and resume aprv overnight and if he has a great day, would look to liberate am tomorrow. Gastrointestinal: tf. sup Renal/Metabolic: f/u Infectious Disease: on Meropenum and linezolid for now for hcap. cx ngtd Hematology: stable. plt ok post sepsis consumption and baseline low. hsq ok Endocrine: glu better, blunt with lantus and ssi still Musculoskeletal: wound care to avoid further skin breakdown; deconditioning will remain Psych/Social: time and support Supportive and preventative care as ordered. SUP: ppi VTE prophylaxis: heparin Cortez catheter given critical illness, monitoring needs for accurate assessment of KAREN and KDIGO criteria for critically ill patients and to avoid potential harms of urinary retention, skin breakdown/ulcers. Disposition: ICU Code Status: Full Critical Care Time: 35min Musa Philip DO
[2016-11-16] MEDS: Potassium & Sodium Phos 250MG* = 1 PACKET G TUBE SCH ×2 (10:59→21:18)
[2016-11-16] MEDS: Phenytoin SUSP(*) 100 MG/4 ML UDC (100 MG) G TUBE SCH ×2 (10:59→21:18)
[2016-11-16] MEDS: PHENobarbital LIQ(*) 30 MG/7.5 ML UDC PO SCH ×2 (10:59→21:18)
[2016-11-16] MEDS ORDERED: Furosemide IV* 10 MG/ML VIAL (40 MG) IV SLOW PU ONE (11:25)
[2016-11-16] MEDS: Insulin GLARGINE(*) 1 UNITS UNIT SUBCUT SCH (12:26)
[2016-11-16] MEDS: Potassium Chloride LIQUID* 20 MEQ PACKET PO SCH ×2 (15:16→21:18)
[2016-11-16] MEDS: Acetaminophen ADULT LIQ* 650 MG/20.3 ML UDC PO PRN (21:18)
[2016-11-16] MEDS: Aspirin EC Low Dose* 81 MG TAB.EC PO SCH (21:19)
[2016-11-17] MEDS: Hydrocortisone INJ* 100 MG VIAL IV SCH ×3 (00:31→20:45)
[2016-11-17] MEDS: Chlorhexidine MOUTHWASH 0.12%* 15 ML UDC TOPICAL SCH ×6 (00:31→20:50)
[2016-11-17] MEDS: Insulin LISPRO* 1 UNITS UNIT SUBCUT SCH ×5 (00:32→23:54)
[2016-11-17] MEDS: Linezolid 600 MG IVPREMIX(*) 600 MG/300 ML BAG IVPB SCH (01:12)
[2016-11-17] MEDS: Heparin VIAL(*) 5000 UNITS/ML VIAL (FIVE THOUSAND) SUBCUT SCH ×3 (05:50→21:33)
[2016-11-17] MEDS: Meropenem 1 GM PREMIX(*) 1 GM/50 ML BAG IV SCH ×3 (06:04→21:33)
[2016-11-17 07:00] LABS: BUN/Creatinine Ratio 83.8 (8-20); Calcium 8.8 mg/dL (8.6-10.3); EGFR Non-African American 234.1 (>60); Magnesium 1.9 mg/dL (1.9-2.7); Phosphorus 2.6 mg/dL (2.5-5.0); Potassium 3.8 mmol/L (3.5-5.0)
[2016-11-17] MEDS: PHENobarbital LIQ(*) 30 MG/7.5 ML UDC PO SCH ×2 (09:56→20:50)
[2016-11-17] MEDS: Phenytoin SUSP(*) 100 MG/4 ML UDC (100 MG) G TUBE SCH ×2 (09:56→20:51)
[2016-11-17] MEDS: Acetaminophen ADULT LIQ* 650 MG/20.3 ML UDC PO SCH ×2 (09:56→20:48)
[2016-11-17] MEDS: Atorvastatin* 10 MG TAB PO SCH (09:57)
[2016-11-17] MEDS: Lansoprazole SOLUTAB* 30 MG G TUBE SCH (09:57)
[2016-11-17] MEDS: Potassium Chloride LIQUID* 20 MEQ PACKET PO SCH (09:57)
[2016-11-17] MEDS: Potassium & Sodium Phos 250MG* = 1 PACKET G TUBE SCH ×2 (09:57→20:51)
[2016-11-17] MEDS ORDERED: Furosemide IV* 10 MG/ML VIAL (40 MG) IV SLOW PU ONE (10:00)
--- NOTE | 2016-11-17 10:07 | PN ---
Progress Note - Progress Note Note: CRITICAL CARE MEDICINE Date: 11/16/16 Time: 805 SUBJECTIVE: Patient seen and examined. PHYSICAL EXAM: Vital Signs: Reviewed. Neurologic: movement to tactile and eye opening to light stimuli HEENT: pupils reactive. ett in place. morphological features with lips and tongue same. +cuff leak with inc peep Cardiovascular: distant, S1 S2 Respiratory: relatively clear. cpap Abdomen: Soft, nt Extremities: Warm. Access: picc LABS: Reviewed. IMAGING: Reviewed. MEDICATIONS: Reviewed. ASSESSMENT: 66 M with sever MR presenting with recurrent pna - question aspiration vs HCAP. Acute hypoxic resp failure Septic shock - resolving Severe MR PLAN: Neurologic: no sedation Cardiovascular: Perfusing. volume status up a touch or optimal, but trial one further dose lasix to keep lung water at bay with liberation. Respiratory: hernán cpap 8/5 with tv >550ml. fio2 30%. rr <teens. will liberate and f/u for secretion clearance as this will be his biggest obstacle in the acute future. pulm toilet care. Gastrointestinal: tf. sup Renal/Metabolic: stable Infectious Disease: on Meropenum and linezolid. think we can dc linezolid at this point and complete 7 days saranya given cx neg pna Hematology: stable. f/u Endocrine: glu better, keep ssi today but hold off on lantus given liberation today Musculoskeletal: wound care to avoid further skin breakdown Psych/Social: time and support Supportive and preventative care as ordered. SUP: ppi VTE prophylaxis: heparin Cortez catheter given critical illness, monitoring needs for accurate assessment of KAREN and KDIGO criteria for critically ill patients and to avoid potential harms of urinary retention, skin breakdown/ulcers. Disposition: ICU Code Status: Full Critical Care Time: 35min Musa Philip DO
[2016-11-17] MEDS ORDERED: Propofol* 10 MG/ML 20 ML BTL IV PUSH ONE ×2 (13:25→13:34)
[2016-11-17] MEDS ORDERED: fentaNYL* 50 MCG/ML 5 ML VIAL (250 MCG VIAL) ONE (13:25)
[2016-11-17] MEDS ORDERED: fentaNYL* 50 MCG/ML 2 ML VIAL (100 MCG VIAL) IV SLOW PU ONE (13:34)
--- NOTE | 2016-11-17 13:41 | PN ---
Progress Note - Progress Note Note: CRITICAL CARE MEDICINE PROCEDURE NOTE DATE: 11/17/16 TIME: 1330 SERVICE: Critical Care Medicine LOCATION OF PROCEDURE: ICU PROCEDURE: Endotracheal intubation PROCEDURALIST: Dr. Philip Consent obtain: No, procedure performed emergently Time out held: Not indicated INDICATION: Acute respiratory failure. Pt extubated this am and had been tolerating with 50% FiO2 but airway secretions remained a problem. Pt with poor expectoration. Deep suctioning from nursing was rescuing but then to no avail. I attempted NT suction with large amount of airway secretions. Turning bloody as well. Sats went to 60s and maintained there for awhile with bag ventilation improving. Given his ongoing ms and airway concerns pt unable to rescue and requiring re-intubation. PROCEDURE: Oxygenation maintained and vitals monitored. Patient in supine position. Pre-medication with fentanyl 100mcg / propofol 50mg. Glidescope #4 inserted with Grade 1 view obtained. +secretions. 8.0 endotracheal tube inserted to 22cm lip. Good chest rise with breath sounds appreciated in bilaterally lung luna. EtCO2 + color change. Portable chest x-ray pending. Patient otherwise tolerated. This acute failure is quite concerning for his overall status and further respiratory debilitation with resumed mv. Will look to liberate again in the future, but would prefer best served as a DNR/DNI. Need to petition state for such and support his current care. Musa Philip, DO
--- NOTE | 2016-11-17 14:51 | RAD ---
Indication: Pneumonia. Post intubation. Check NG tube placement. Comparison: November 13, 2006 Technique: Upright AP 1355 hours Report: Consolidation at the LEFT mid to lower lung zone is mildly improved compared with the prior exam. Probable small bilateral pleural effusions. Probable artifactual vertically oriented linear densities at the periphery of the LEFT lower lung zone are not suspicious for pneumothorax. Smaller RIGHT suprahilar opacity is also decreased. Tip of RIGHT upper extremity PICC line at level of the superior vena cava. Endotracheal tube tip is 4.5 cm above the Alley. Nasogastric tube is coiled in the stomach with the tip at the fundus. Mild cardiomegaly. Unremarkable central pulmonary vasculature. IMPRESSION: 1. Interval partial resolution of bilateral lung infiltrates. 2. Endotracheal tube tip 4.5 cm above the Alley. Nasogastric tube is coiled in the stomach with the tip at the fundus.
[2016-11-17] MEDS: Aspirin EC Low Dose* 81 MG TAB.EC PO SCH (20:49)
[2016-11-18] MEDS: Chlorhexidine MOUTHWASH 0.12%* 15 ML UDC TOPICAL SCH ×6 (05:19→20:18)
[2016-11-18] MEDS: Heparin VIAL(*) 5000 UNITS/ML VIAL (FIVE THOUSAND) SUBCUT SCH ×3 (05:20→22:00)
[2016-11-18 05:40] LABS: Calcium 9.1 mg/dL (8.6-10.3); EGFR Non-African American 249.6 (>60); Magnesium 1.8 mg/dL (1.9-2.7); Phosphorus 3.4 mg/dL (2.5-5.0)
[2016-11-18] MEDS: Insulin LISPRO* 1 UNITS UNIT SUBCUT SCH ×4 (05:46→23:40)
[2016-11-18] MEDS: Meropenem 1 GM PREMIX(*) 1 GM/50 ML BAG IV SCH ×3 (05:47→22:00)
[2016-11-18] MEDS: Potassium & Sodium Phos 250MG* = 1 PACKET G TUBE SCH ×2 (08:39→20:18)
[2016-11-18] MEDS: Lansoprazole SOLUTAB* 30 MG G TUBE SCH (08:39)
[2016-11-18] MEDS: Atorvastatin* 10 MG TAB PO SCH (08:39)
[2016-11-18] MEDS: Acetaminophen ADULT LIQ* 650 MG/20.3 ML UDC PO SCH ×2 (08:39→20:18)
[2016-11-18] MEDS: Hydrocortisone INJ* 100 MG VIAL IV SCH ×3 (08:39→21:55)
[2016-11-18] MEDS: PHENobarbital LIQ(*) 30 MG/7.5 ML UDC PO SCH ×2 (08:39→20:18)
[2016-11-18] MEDS: Phenytoin SUSP(*) 100 MG/4 ML UDC (100 MG) G TUBE SCH ×2 (09:26→20:18)
--- NOTE | 2016-11-18 12:37 | PN ---
Progress Note - Progress Note SOAP: Subjective: DOS: 11/18/16 CC: respiratory failure HPI: 66 year old man with permanent developmental delay admitted with hypoxemic respiratory failure, infiltrates on CXR. Intubated, was extubated today then reintubated, significant secretions and hypoxia. No fever or diarrhea per RN. Objective: [] Vital Signs Temp 36.9 C 11/18/16 12:00 Pulse 88 11/18/16 12:00 Resp 12 11/18/16 12:11 BP 107/70 11/18/16 12:00 Pulse Ox 96 11/18/16 12:00 Intake & Output 11/17/16 11/18/16 11/18/16 18:59 06:59 18:59 Intake Total 791 457 Output Total 1325 1000 Balance -534 -543 Weight 139 lb 5.314 oz Intake: IV Fluids 101 138 NS (0.9%) 101 138 IVPB 60 119 NS (0.9%) 60 119 Tube Feeding 510 Tube Feeding Flush Amount 120 NG Tube Irrigate Amount 200 Output: Cortez 1325 1000 Gen:no distress Neuro: sedated HEENT:ET tube; lower lip edema Neck:supple Heart:RRR no murmur Lungs:Coarse BS BL Abd:+BS NTND soft Skin: no rash Laboratory Results - last 24 hr 11/17/16 11/17/16 11/18/16 18:21 23:50 05:05 Sodium 139 Potassium 4.0 Chloride 100 L Carbon Dioxide 37 H Anion Gap 2 BUN 28 H Creatinine 0.35 L Est GFR ( Amer) 321.0 Est GFR (Non-Af Amer) 249.6 BUN/Creatinine Ratio 80.0 H Glucose 59 L POC Glucose (mg/dL) 80 83 Calcium 9.1 Phosphorus 3.4 Magnesium 1.8 L 11/18/16 11/18/16 07:11 12:07 Sodium Potassium Chloride Carbon Dioxide Anion Gap BUN Creatinine Est GFR ( Amer) Est GFR (Non-Af Amer) BUN/Creatinine Ratio Glucose POC Glucose (mg/dL) 94 124 H Calcium Phosphorus Magnesium Assessment: 1. acute hypoxemic respiratory failure due to pneumonia/pneumonitis; reintubated 2. leukocytopsis 3. seizure disorder 4. allergy to PCN, clinda, FQ Plan: continue meropnem 1 gm IV Q8hrs day 03/19
--- NOTE | 2016-11-18 12:46 | PN ---
Progress Note - Progress Note Note: CRITICAL CARE MEDICINE Date: 11/16/16 Time: 750 SUBJECTIVE: Patient seen and examined. PHYSICAL EXAM: Vital Signs: Reviewed. Neurologic: movement to tactile and eye opening to light stimuli HEENT: pupils reactive. ett in place. morphological features with lips and tongue same. bloody secretions Cardiovascular: distant, S1 S2 Respiratory: relatively clear. aprv adjusted Abdomen: Soft, nt Extremities: Warm. Access: picc LABS: Reviewed. IMAGING: Reviewed. MEDICATIONS: Reviewed. ASSESSMENT: 66 M with sever MR presenting with recurrent pna - question aspiration vs HCAP. Acute hypoxic resp failure Septic shock - resolving Severe MR Deconditioning Failure to thrive PLAN: Neurologic: no sedation Cardiovascular: Perfusing. volume status ok. up a touch or optimal, but trial one further dose lasix to keep lung water at bay with liberation. Respiratory: aprv adjusted to allow spont breathing and maintain recruitment. airway is still main concern. would like to see him over come this obstacle in order to maintain his life style but limited potential now. Ideally would prefer extubation as DNR/DNI to foster his best chance at this. Gastrointestinal: tf adjusted. sup Renal/Metabolic: stable Infectious Disease: on Meropenum fo 7 days. Hematology: stable. f/u Endocrine: glu ok. ssi Musculoskeletal: wound care to avoid further skin breakdown Psych/Social: advocate for paperwork for DNR/DNI. Supportive and preventative care as ordered. SUP: ppi VTE prophylaxis: heparin Cortez catheter given critical illness, monitoring needs for accurate assessment of KAREN and KDIGO criteria for critically ill patients and to avoid potential harms of urinary retention, skin breakdown/ulcers. Disposition: ICU Code Status: Full Critical Care Time: 35min Musa Philip DO
[2016-11-18] MEDS ORDERED: Furosemide IV* 10 MG/ML VIAL (40 MG) IV SLOW PU ONE (16:00)
[2016-11-18] MEDS: Aspirin EC Low Dose* 81 MG TAB.EC PO SCH (20:18)
[2016-11-19] MEDS: Chlorhexidine MOUTHWASH 0.12%* 15 ML UDC TOPICAL SCH ×6 (04:05→20:38)
[2016-11-19] MEDS: Heparin VIAL(*) 5000 UNITS/ML VIAL (FIVE THOUSAND) SUBCUT SCH ×2 (05:42→20:37)
[2016-11-19] MEDS: Meropenem 1 GM PREMIX(*) 1 GM/50 ML BAG IV SCH ×2 (05:42→14:05)
[2016-11-19] MEDS: Insulin LISPRO* 1 UNITS UNIT SUBCUT SCH ×4 (05:53→18:02)
[2016-11-19 06:17] LABS: Albumin 2.5 g/dL (3.2-5.2); BUN/Creatinine Ratio 86.7 (8-20); Calcium 8.7 mg/dL (8.6-10.3); EGFR African American 383.4 (>60); EGFR Non-African American 298.2 (>60); Globulin 3.3 g/dL (2-4); Magnesium 1.8 mg/dL (1.9-2.7); Potassium 3.7 mmol/L (3.5-5.0); Total Bilirubin 0.3 mg/dL (0.2-1.0); Total Protein 5.8 g/dL (6.4-8.9)
[2016-11-19] MEDS: Hydrocortisone INJ* 100 MG VIAL IV SCH ×2 (08:15→20:33)
[2016-11-19] MEDS ORDERED: Furosemide IV* 10 MG/ML VIAL (40 MG) IV SLOW PU ONE (08:53)
[2016-11-19] MEDS ORDERED: Potassium Chloride LIQUID* 20 MEQ PACKET G TUBE ONE (08:53)
[2016-11-19] MEDS: PHENobarbital LIQ(*) 30 MG/7.5 ML UDC PO SCH (09:23)
[2016-11-19] MEDS: Phenytoin SUSP(*) 100 MG/4 ML UDC (100 MG) G TUBE SCH ×2 (09:23→20:35)
[2016-11-19] MEDS: Potassium & Sodium Phos 250MG* = 1 PACKET G TUBE SCH ×2 (09:23→20:37)
[2016-11-19] MEDS: Acetaminophen ADULT LIQ* 650 MG/20.3 ML UDC PO SCH ×2 (09:23→20:34)
[2016-11-19] MEDS: Atorvastatin* 10 MG TAB PO SCH (09:24)
[2016-11-19] MEDS: Lansoprazole SOLUTAB* 30 MG G TUBE SCH (09:24)
--- NOTE | 2016-11-19 09:59 | PN ---
Progress Note - Progress Note Note: CRITICAL CARE MEDICINE Date: 11/19/16 Time: 800 SUBJECTIVE: Patient seen and examined. PHYSICAL EXAM: Vital Signs: Reviewed. Neurologic: same movement to tactile and eye opening to stimuli HEENT: pupils reactive. ett in place. morphological features with lips and tongue same. scant secretions. Cardiovascular: distant, S1 S2 Respiratory: relatively clear. aprv pHigh 15. FiO2 25% Abdomen: Soft, nt Extremities: Warm. dep edema Access: picc LABS: Reviewed. IMAGING: Reviewed. MEDICATIONS: Reviewed. ASSESSMENT: 66 M with sever MR presenting with recurrent pna - question aspiration vs HCAP. Acute hypoxic resp failure Septic shock - resolving Severe MR Deconditioning Failure to thrive PLAN: Neurologic: no sedation; baseline alone versus some quiet delirium. Cardiovascular: Perfusing. volume status ok but lasix today to maintain dry. Respiratory: aprv stable. airway remains the main concern. Maintain dry and would again try liberation today. Will take too long to obtain DNR/DNI and this time will only debilitate him further and lead to worsening chances of maintaining off ppv. Gastrointestinal: tf held for now. sup Renal/Metabolic: stable Infectious Disease: on Meropenum fo 7 days. Hematology: stable. f/u Endocrine: glu ok. ssi Musculoskeletal: wound care to avoid further skin breakdown Psych/Social: advocate for paperwork for DNR/DNI. Supportive and preventative care as ordered. SUP: ppi VTE prophylaxis: heparin Cortez catheter given critical illness, monitoring needs for accurate assessment of KAREN and KDIGO criteria for critically ill patients and to avoid potential harms of urinary retention, skin breakdown/ulcers. Disposition: ICU Code Status: Full Critical Care Time: 35min FCynthia Philip DO
[2016-11-19 12:05] LABS: Phosphorus 3.6 mg/dL (2.5-5.0)
--- NOTE | 2016-11-19 15:01 | PN ---
Progress Note - Progress Note Note: CRITICAL CARE MEDICINE Date: 11/19/16 Time: 1445 Tolerating the first 4 hours post liberation. Still with secretions and clearance issues. Dynamics remain multifactorial and further ailments revealing. 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 Oral pharynx and tongue part of the ailment but with jaw thrust or head extension these improve and his poor lung compliance, further inhibited by obstructive lung disease, become more evident. Most of these dynamcis would exist on him from chronic aspirations. His kyphosis and contractured posture exacerbate this ailment. Attempted soft c-collar to protrude jaw and add to neck extension but he is not amendable to this. Paradoxical resp pattern appears more consistent with his chronic disease compensation. Would again continue to support him in this manner, but more clear now that if he continues to fail, trach would not support these needs and would only ensure vent dependency. See if he can be supported non-invasively from here. Will need to request for appropriate DNR/DNI regardless of his current course. Disposition: ICU Code Status: Full Critical Care Time: 15min Musa Philip DO
[2016-11-19] MEDS: Aspirin EC Low Dose* 81 MG TAB.EC PO SCH (20:38)
[2016-11-20] MEDS: Chlorhexidine MOUTHWASH 0.12%* 15 ML UDC TOPICAL SCH (01:00)
[2016-11-20] MEDS: Insulin LISPRO* 1 UNITS UNIT SUBCUT SCH ×4 (01:17→18:21)
[2016-11-20 06:24] LABS: Hematocrit 33 % (42-52); Hemoglobin 10.9 g/dl (14.0-18.0); Mean Corpuscular HGB Conc 33 g/dl (31-36); Mean Corpuscular Hemoglobin 33 pg (27-31); Mean Corpuscular Volume 100 fL (80-94); Red Blood Count 3.29 10^6/ul (4.0-5.4); Red Cell Distribution Width 15 % (10.5-15); White Blood Count 5.7 10^3/ul (3.5-10.8)
[2016-11-20 06:25] LABS: Comments Flag Yes
[2016-11-20 06:35] LABS: Albumin 2.6 g/dL (3.2-5.2); BUN/Creatinine Ratio 72.4 (8-20); Calcium 8.7 mg/dL (8.6-10.3); EGFR African American 398.7 (>60); Globulin 3.5 g/dL (2-4); Magnesium 1.7 mg/dL (1.9-2.7); Phosphorus 3.4 mg/dL (2.5-5.0); Potassium 3.8 mmol/L (3.5-5.0); Total Bilirubin 0.3 mg/dL (0.2-1.0); Total Protein 6.1 g/dL (6.4-8.9)
[2016-11-20] MEDS: Hydrocortisone INJ* 100 MG VIAL IV SCH (08:49)
[2016-11-20] MEDS: Lansoprazole SOLUTAB* 30 MG G TUBE SCH (08:50)
[2016-11-20] MEDS: Atorvastatin* 10 MG TAB PO SCH (08:50)
[2016-11-20] MEDS: Heparin VIAL(*) 5000 UNITS/ML VIAL (FIVE THOUSAND) SUBCUT SCH ×2 (08:50→21:18)
[2016-11-20] MEDS: Phenytoin SUSP(*) 100 MG/4 ML UDC (100 MG) G TUBE SCH ×2 (08:50→21:18)
[2016-11-20] MEDS: Acetaminophen ADULT LIQ* 650 MG/20.3 ML UDC PO SCH ×2 (08:50→21:17)
[2016-11-20] MEDS: Potassium & Sodium Phos 250MG* = 1 PACKET G TUBE SCH ×2 (08:50→21:18)
[2016-11-20] MEDS ORDERED: Furosemide IV* 10 MG/ML VIAL (40 MG) IV SLOW PU ONE (09:59)
[2016-11-20] MEDS ORDERED: acetaZOLAMIDE VIAL* 250 MG in NS 0.9% 50 ML* 50 ML IVPB ONE (10:00)
[2016-11-20] MEDS: Potassium Chloride LIQUID* 20 MEQ PACKET G TUBE SCH ×2 (10:37→21:18)
--- NOTE | 2016-11-20 10:52 | PN ---
Progress Note - Progress Note Note: CRITICAL CARE MEDICINE Date: 11/20/16 Time: 800 SUBJECTIVE: Patient seen and examined. tolerated overnight without nt suction needs PHYSICAL EXAM: Vital Signs: Reviewed. Neurologic: quicker responses with open eyes and movement. HEENT: pupils reactive. chronic features Cardiovascular: distant, S1 S2 Respiratory: few rhonchi but phases normal Abdomen: Soft, nt Extremities: Warm. dep edema Access: picc LABS: Reviewed. IMAGING: Reviewed. MEDICATIONS: Reviewed. ASSESSMENT: 66 M with sever MR presenting with recurrent pna - question aspiration vs HCAP. Acute hypoxic resp failure Septic shock - resolving Severe MR Deconditioning Dysphagia malnutrition - mod degree PLAN: Stabilized. Wean O2. Pulm toliet support as able. Still at airway risk and will still need ICU observation. Can de-escalate off nasal trumpet. Has completed abx. Resume tf via ngt. Question will be whether with lung improvement next few days whether he can regain swallow ability, but if not able, likely need G tube. This will not prevent his upper airway secretions ailments, but would simple support nutritional needs. Will remain at risk for aspirations and decompensation due to underlying ailments as labelled prior. Would support DNR/ DNI and otherwise continue to support his care. Supportive and preventative care as ordered. SUP: ppi VTE prophylaxis: heparin Cortez catheter given critical illness, monitoring needs for accurate assessment of KAREN and KDIGO criteria for critically ill patients and to avoid potential harms of urinary retention, skin breakdown/ulcers. Disposition: ICU Code Status: Full Critical Care Time: 25min Musa Philip DO
[2016-11-20] MEDS: Aspirin EC Low Dose* 81 MG TAB.EC PO SCH (21:18)
[2016-11-21] MEDS: Insulin LISPRO* 1 UNITS UNIT SUBCUT SCH ×4 (00:45→17:23)
[2016-11-21] MEDS: Phenytoin SUSP(*) 100 MG/4 ML UDC (100 MG) G TUBE SCH ×2 (09:25→21:19)
[2016-11-21] MEDS: Acetaminophen ADULT LIQ* 650 MG/20.3 ML UDC PO SCH ×2 (09:25→21:19)
[2016-11-21] MEDS: Atorvastatin* 10 MG TAB PO SCH (09:25)
[2016-11-21] MEDS: Potassium Chloride LIQUID* 20 MEQ PACKET G TUBE SCH (09:26)
[2016-11-21] MEDS: Potassium & Sodium Phos 250MG* = 1 PACKET G TUBE SCH ×2 (09:26→21:19)
[2016-11-21] MEDS: Heparin VIAL(*) 5000 UNITS/ML VIAL (FIVE THOUSAND) SUBCUT SCH ×2 (09:26→21:19)
[2016-11-21] MEDS: predniSONE TAB* 20 MG G TUBE SCH (09:26)
[2016-11-21] MEDS: Lansoprazole SOLUTAB* 30 MG G TUBE SCH (09:26)
--- NOTE | 2016-11-21 11:07 | PN ---
Progress Note - Progress Note Note: CRITICAL CARE MEDICINE Date: 11/21/16 Time: 935 SUBJECTIVE: Patient seen and examined. tolerated overnight with one nt suction need PHYSICAL EXAM: Vital Signs: Reviewed. Neurologic: stable towards baseline. HEENT: pupils reactive. chronic features Cardiovascular: distant, S1 S2 Respiratory: phases well Abdomen: Soft, nt Extremities: Warm. dep edema better Access: picc LABS: Reviewed. IMAGING: Reviewed. MEDICATIONS: Reviewed. ASSESSMENT: 66 M with sever MR presenting with recurrent pna - question aspiration vs HCAP. Acute hypoxic resp failure Septic shock - resolving Severe MR Deconditioning Dysphagia malnutrition - mod degree PLAN: Stabilizing still. Maintaining airway. Perfusing and vol stable. Keep TF. Still waiting on swallow until resp as good as it gets, but likely to again always remain at risk for aspiration. Question for next week will be if he cannot improve much more, should peg be pursued. Wean O2. Pulm toliet support as able. ICU today but potential floor tomorrow if maintaining. Supportive and preventative care as ordered. SUP: tf VTE prophylaxis: heparin Cortez catheter out Disposition: ICU Code Status: Full Critical Care Time: 25min Musa Philip DO
[2016-11-21] MEDS: Finasteride TAB* 5 MG PO SCH (13:01)
[2016-11-21] MEDS: Aspirin EC Low Dose* 81 MG TAB.EC PO SCH (21:19)
[2016-11-21] MEDS: PHENobarbital LIQ(*) 30 MG/7.5 ML UDC PO SCH (21:19)
[2016-11-22] MEDS: Insulin LISPRO* 1 UNITS UNIT SUBCUT SCH ×4 (00:44→18:08)
[2016-11-22 07:08] LABS: Hematocrit 34 % (42-52); Hemoglobin 11.4 g/dl (14.0-18.0); Mean Corpuscular HGB Conc 34 g/dl (31-36); Mean Corpuscular Hemoglobin 34 pg (27-31); Mean Corpuscular Volume 101 fL (80-94); Red Blood Count 3.36 10^6/ul (4.0-5.4); Red Cell Distribution Width 15 % (10.5-15); White Blood Count 8.1 10^3/ul (3.5-10.8)
[2016-11-22 07:21] LABS: BUN/Creatinine Ratio 71.9 (8-20); EGFR African American 355.9 (>60); EGFR Non-African American 276.8 (>60); Phosphorus 3.2 mg/dL (2.5-5.0); Potassium 4.2 mmol/L (3.5-5.0)
[2016-11-22 07:28] LABS: Comments Flag Yes
--- NOTE | 2016-11-22 08:53 | PN ---
Subjective Date of Service: 11/22/16 Interval History: Patient seen this morning. Laying in bed, non-verbal, appeared comfortable. Some coarse, wet BS, NT suction performed with good return. Family History: Unchanged from Admission Social History: Unchanged from Admission Past Medical History: Unchanged from Admission Objective Active Medications: Acetaminophen (Tylenol Adult Liq*) 650 mg PO Q4H PRN Acetaminophen (Tylenol Adult Liq*) 325 mg PO BID [facility] Aspirin (Aspirin Ec Low Dose*) 81 mg PO 2100 LACIE Atorvastatin Calcium (Lipitor*) 10 mg PO DAILY [facility] Dextrose (D50w Syringe 50 Ml*) 12.5 gm IV PUSH .FOR FS < 60 - SS PRN Finasteride (Proscar Tab*) 5 mg PO DAILY [facility] Heparin Sodium (Porcine) (Heparin Vial(*)) 5,000 units SUBCUT Q12HR LACIE Heparin Sodium (Porcine) (Heparin Flush Picc/Ml/Cvc(*)) 1 - 3 ml FLUSH 0600, 1800 LACIE Insulin Human Lispro (Humalog*) 0 units SUBCUT Q6HR [facility] Lansoprazole (Prevacid Solutab*) 30 mg G TUBE DAILY [facility] Multivitamins (Theragran W/Minerals Liq*) 15 ml PO DAILY [facility] Ondansetron HCl (Zofran Inj*) 4 mg IV Q6H PRN Phenobarbital (Phenobarbital Liq(*)) 30 mg PO BID [facility]AC[facility] Phenytoin Sodium (Dilantin Susp(*)) 100 mg G TUBE BID [facility] Potassium Phos/Sodium Phos (Neutra Phos 250 Mg Juan Daniel*) 250 mg G TUBE BID [facility] Prednisone (Deltasone Tab*) 20 mg G TUBE DAILY [facility] Vital Signs 11/21/16 11/21/16 11/21/16 09:00 10:00 10:59 Temperature Pulse Rate 95 91 Respiratory 11 11 9 Rate Blood Pressure 134/87 115/72 (mmHg) O2 Sat by Pulse 97 96 Oximetry 11/22/16 11/22/16 11/22/16 03:00 04:00 04:18 Temperature Pulse Rate Respiratory 15 9 19 Rate Blood Pressure 114/86 116/78 (mmHg) O2 Sat by Pulse 99 100 Oximetry 11/22/16 11/22/16 11/22/16 05:00 06:00 06:12 Temperature Pulse Rate 93 Respiratory 15 16 13 Rate Blood Pressure 128/78 133/85 (mmHg) O2 Sat by Pulse 85 98 Oximetry Oxygen Devices in Use Now: Nasal Cannula Appearance: Middle-aged, M, laying in bed in NAD Eyes: No Scleral Icterus Ears/Nose/Mouth/Throat: Mucous Membranes Moist Respiratory: Symmetrical Chest Expansion and Respiratory Effort, - - Wet ronchi B/L, some transmitted from upper airways, no wheezing Cardiovascular: NL Sounds; No Murmurs; No JVD, - - mild tachycardia Abdominal: NL Sounds; No Tenderness; No Distention Lymphatic: No Cervical Adenopathy Extremities: - - B/L pedal edema Skin: - Neurological: - - Non-verbal Result Diagrams: 11/22/16 06:42 11/22/16 06:42 Microbiology and Other Data: Microbiology 11/13/16 22:35 Urine Culture - Final Urine No Growth (<1,000 CFU/mL) Legionella Urinary Antigen - Final Negative Legionella Streptococcus pneumoniae Ag Screen - Final Negative S. pneumo Antigen Assess/Plan/Problems-Billing Assessment: Acute hypoxic respiratory failure 2/2 HCAP vs aspiration PNA requiring intubation, septic shock, dysphagia in a 66 yo M with severe developmental delay , HTN, HLD, DM, seizure disorder, BPH - Patient Problems (1) Acute respiratory failure with hypoxia Current Visit: No Comment: 2/2 PNA (aspiration vs HCAP). Improving, currently on 2L and tolerating well. Off antibiotics. (2) Dysphagia Current Visit: No Status: Acute Comment: Holding on [employer] for now to allow for full recovery prior to trial of swallowing. Continue TF. If does not do well with swallow eval will need to have discussion about PEG with appropriate parties (3) Seizure disorder Current Visit: No Comment: Seizure precautions c/w pheobarbital and phenytoin (4) Diabetes Current Visit: No Comment: Cont ISS with TF (5) BPH (benign prostatic hyperplasia) Current Visit: Yes Comment: Continue finasteride (6) Goals of care, counseling/discussion Current Visit: Yes Comment: Palliative Care involved. DNR/DNI discussion appropriate and medical surrogate decision making committee will need to be involved. Ethics consult placed by Dr. Leblanc (7) DVT prophylaxis Current Visit: No Comment: SQ heparin
[2016-11-22] MEDS: Acetaminophen ADULT LIQ* 650 MG/20.3 ML UDC PO SCH ×2 (09:41→22:24)
[2016-11-22] MEDS: Atorvastatin* 10 MG TAB PO SCH (09:41)
[2016-11-22] MEDS: predniSONE TAB* 20 MG G TUBE SCH (09:41)
[2016-11-22] MEDS: Lansoprazole SOLUTAB* 30 MG G TUBE SCH (09:41)
[2016-11-22] MEDS: Finasteride TAB* 5 MG PO SCH (09:41)
[2016-11-22] MEDS: Phenytoin SUSP(*) 100 MG/4 ML UDC (100 MG) G TUBE SCH ×2 (09:41→22:24)
[2016-11-22] MEDS: Heparin VIAL(*) 5000 UNITS/ML VIAL (FIVE THOUSAND) SUBCUT SCH ×2 (09:42→22:26)
[2016-11-22] MEDS: Potassium & Sodium Phos 250MG* = 1 PACKET G TUBE SCH ×2 (09:42→22:26)
[2016-11-22] MEDS: Multivitamins ADULT w/MIN LIQ* 15 ML UDC PO SCH (09:42)
[2016-11-22] MEDS: PHENobarbital LIQ(*) 30 MG/7.5 ML UDC PO SCH ×2 (09:42→22:24)
[2016-11-22] MEDS: Aspirin EC Low Dose* 81 MG TAB.EC PO SCH (22:25)
[2016-11-23] MEDS: Insulin LISPRO* 1 UNITS UNIT SUBCUT SCH ×5 (01:04→23:36)
[2016-11-23] MEDS: Finasteride TAB* 5 MG PO SCH (09:00)
[2016-11-23] MEDS: Multivitamins ADULT w/MIN LIQ* 15 ML UDC PO SCH (09:01)
[2016-11-23] MEDS: Acetaminophen ADULT LIQ* 650 MG/20.3 ML UDC PO SCH ×2 (09:02→20:21)
[2016-11-23] MEDS: predniSONE TAB* 20 MG G TUBE SCH (09:03)
[2016-11-23] MEDS: Atorvastatin* 10 MG TAB PO SCH (09:04)
[2016-11-23] MEDS: Lansoprazole SOLUTAB* 30 MG G TUBE SCH (09:04)
[2016-11-23] MEDS: Heparin VIAL(*) 5000 UNITS/ML VIAL (FIVE THOUSAND) SUBCUT SCH ×2 (09:04→20:21)
[2016-11-23] MEDS: Potassium & Sodium Phos 250MG* = 1 PACKET G TUBE SCH ×2 (09:05→20:21)
[2016-11-23] MEDS: Phenytoin SUSP(*) 100 MG/4 ML UDC (100 MG) G TUBE SCH ×2 (09:07→20:20)
[2016-11-23] MEDS: PHENobarbital LIQ(*) 30 MG/7.5 ML UDC PO SCH ×2 (09:08→20:21)
--- NOTE | 2016-11-23 13:21 | PN ---
Subjective Date of Service: 11/23/16 Interval History: Patient seen this morning. Sitting in bed in NAD. Wet cough. Non-verbal. Family History: Unchanged from Admission Social History: Unchanged from Admission Past Medical History: Unchanged from Admission Objective Active Medications: Acetaminophen (Tylenol Adult Liq*) 650 mg PO Q4H PRN Acetaminophen (Tylenol Adult Liq*) 325 mg PO BID LACIE Aspirin (Aspirin Ec Low Dose*) 81 mg PO 2100 LACIE Atorvastatin Calcium (Lipitor*) 10 mg PO DAILY LACIE Dextrose (D50w Syringe 50 Ml*) 12.5 gm IV PUSH .FOR FS < 60 - SS PRN Finasteride (Proscar Tab*) 5 mg PO DAILY LACIE Heparin Sodium (Porcine) (Heparin Vial(*)) 5,000 units SUBCUT Q12HR LACIE Heparin Sodium (Porcine) (Heparin Flush Picc/Ml/Cvc(*)) 1 - 3 ml FLUSH 0600, 1800 LACIE Insulin Human Lispro (Humalog*) 0 units SUBCUT Q6HR LACIE Lansoprazole (Prevacid Solutab*) 30 mg G TUBE DAILY [facility] Multivitamins (Theragran W/Minerals Liq*) 15 ml PO DAILY LACIE Ondansetron HCl (Zofran Inj*) 4 mg IV Q6H PRN Phenobarbital (Phenobarbital Liq(*)) 30 mg PO BID LACIE Phenytoin Sodium (Dilantin Susp(*)) 100 mg G TUBE BID LACIE Potassium Phos/Sodium Phos (Neutra Phos 250 Mg Juan Daniel*) 250 mg G TUBE BID [facility] Vital Signs 11/22/16 11/22/16 11/23/16 13:48 22:24 00:24 Temperature 97.5 F Pulse Rate 99 Respiratory 14 16 16 Rate Blood Pressure 109/75 (mmHg) O2 Sat by Pulse 98 Oximetry 11/23/16 11/23/16 11/23/16 01:56 08:44 09:08 Temperature Pulse Rate Respiratory 16 Rate Blood Pressure (mmHg) O2 Sat by Pulse 98 96 Oximetry 11/23/16 11/23/16 11/23/16 11:08 12:27 13:05 Temperature Pulse Rate 103 Respiratory 16 18 16 Rate Blood Pressure (mmHg) O2 Sat by Pulse 96 Oximetry Oxygen Devices in Use Now: Nasal Cannula - 2L Appearance: Middle-aged, M, laying in bed in NAD Ears/Nose/Mouth/Throat: Mucous Membranes Moist, - - Large lower lip Neck: NL Appearance and Movements; NL JVP Respiratory: Symmetrical Chest Expansion and Respiratory Effort, - - Clear inspiratory BS, coarse expiratory, some transmitted from upper airways Cardiovascular: NL Sounds; No Murmurs; No JVD, RRR Abdominal: NL Sounds; No Tenderness; No Distention Lymphatic: No Cervical Adenopathy Extremities: - - B/L pedal edema Skin: No Rash or Ulcers Neurological: - - Non-verbal Result Diagrams: 11/22/16 06:42 11/22/16 06:42 Additional Lab and Data: Lab Results 11/13/16 11/13/16 11/13/16 Range/Units 18:00 18:00 18:00 WBC 9.7 (3.5-10.8) 10^3/ul RBC 3.66 L (4.0-5.4) 10^6/ul Hgb 12.1 L (14.0-18.0) g/dl Hct 38 L (42-52) % MCV 103 H (80-94) fL MCH 33 H (27-31) pg MCHC 32 (31-36) g/dl RDW 15 (10.5-15) % Plt Count (150-450) 10^3/ul MPV TNP Neut % (Auto) 88.8 H (38-83) % Lymph % (Auto) 5.4 L (25-47) % Cherry % (Auto) 5.4 (1-9) % Eos % (Auto) 0.1 (0-6) % Baso % (Auto) 0.3 (0-2) % Absolute Neuts (auto) 8.6 H (1.5-7.7) 10^3/ul Absolute Lymphs (auto) 0.5 L (1.0-4.8) 10^3/ul Absolute Monos (auto) 0.5 (0-0.8) 10^3/ul Absolute Eos (auto) 0 (0-0.6) 10^3/ul Absolute Basos (auto) 0 (0-0.2) 10^3/ul Absolute Nucleated RBC 0.01 10^3/ul Nucleated RBC % 0.1 Sodium 137 (133-145) mmol/L Potassium 4.4 (3.5-5.0) mmol/L Chloride 93 L (101-111) mmol/L Carbon Dioxide 34 H (22-32) mmol/L Anion Gap 10 (2-11) mmol/L BUN 25 H (6-24) mg/dL Creatinine 0.51 L (0.67-1.17) mg/dL Est GFR ( Amer) 207.9 (>60) Est GFR (Non-Af Amer) 161.6 (>60) BUN/Creatinine Ratio 49.0 H (8-20) Glucose 149 H (70-100) mg/dL Lactic Acid 4.7 H* (0.5-2.0) mmol/L Calcium 10.1 (8.6-10.3) mg/dL Total Bilirubin 0.20 (0.2-1.0) mg/dL AST 18 (13-39) U/L ALT 19 (7-52) U/L Alkaline Phosphatase 80 (34-104) U/L Troponin I 0.01 (<0.04) ng/mL Total Protein 7.2 (6.4-8.9) g/dL Albumin 3.4 (3.2-5.2) g/dL Globulin 3.8 (2-4) g/dL Albumin/Globulin Ratio 0.9 L (1-3) Microbiology and Other Data: Microbiology 11/13/16 22:35 Urine Culture - Final Urine No Growth (<1,000 CFU/mL) Legionella Urinary Antigen - Final Negative Legionella Streptococcus pneumoniae Ag Screen - Final Negative S. pneumo Antigen Assess/Plan/Problems-Billing Assessment: Acute hypoxic respiratory failure 2/2 HCAP vs aspiration PNA requiring intubation, septic shock, dysphagia in a 66 yo M with severe developmental delay , HTN, HLD, DM, seizure disorder, BPH - Patient Problems (1) Acute respiratory failure with hypoxia Current Visit: No Comment: 2/2 PNA (aspiration vs HCAP). Improving, currently on 2L and tolerating well. Off antibiotics. (2) Dysphagia Current Visit: No Status: Acute Comment: Holding on [employer] for now to allow for full recovery prior to trial of swallowing. Continue TF. If does not do well with swallow eval will need to have discussion about PEG with appropriate parties (3) Seizure disorder Current Visit: No Comment: Seizure precautions c/w pheobarbital and phenytoin (4) Diabetes Current Visit: No Comment: Cont ISS with TF (5) BPH (benign prostatic hyperplasia) Current Visit: Yes Comment: Continue finasteride (6) Goals of care, counseling/discussion Current Visit: Yes Comment: Palliative Care involved. DNR/DNI discussion appropriate and medical surrogate decision making committee will need to be involved. Ethics met 11/22 (7) DVT prophylaxis Current Visit: No Comment: SQ heparin
[2016-11-23] MEDS: Aspirin EC Low Dose* 81 MG TAB.EC PO SCH (20:21)
[2016-11-24] MEDS: Insulin LISPRO* 1 UNITS UNIT SUBCUT SCH ×4 (05:19→23:40)
[2016-11-24] MEDS: Acetaminophen ADULT LIQ* 650 MG/20.3 ML UDC PO SCH ×2 (09:22→20:02)
[2016-11-24] MEDS: Multivitamins ADULT w/MIN LIQ* 15 ML UDC PO SCH (09:22)
[2016-11-24] MEDS: Potassium & Sodium Phos 250MG* = 1 PACKET G TUBE SCH ×2 (09:22→20:03)
[2016-11-24] MEDS: Lansoprazole SOLUTAB* 30 MG G TUBE SCH (09:22)
[2016-11-24] MEDS: Phenytoin SUSP(*) 100 MG/4 ML UDC (100 MG) G TUBE SCH ×2 (09:22→20:03)
[2016-11-24] MEDS: Heparin VIAL(*) 5000 UNITS/ML VIAL (FIVE THOUSAND) SUBCUT SCH ×2 (09:22→20:03)
[2016-11-24] MEDS: Finasteride TAB* 5 MG PO SCH (09:23)
[2016-11-24] MEDS: PHENobarbital LIQ(*) 30 MG/7.5 ML UDC PO SCH ×2 (09:23→20:03)
[2016-11-24] MEDS: Atorvastatin* 10 MG TAB PO SCH (09:23)
--- NOTE | 2016-11-24 11:15 | PN ---
Subjective Date of Service: 11/24/16 Interval History: Patient seen this morning. Had significant amount of secretions suctioned this morning. Currently laying in bed, non-verbal, comfortable, wet expiratory breath sounds. Family History: Unchanged from Admission Social History: Unchanged from Admission Past Medical History: Unchanged from Admission Objective Active Medications: Acetaminophen (Tylenol Adult Liq*) 650 mg PO Q4H PRN Acetaminophen (Tylenol Adult Liq*) 325 mg PO BID LACIE Aspirin (Aspirin Ec Low Dose*) 81 mg PO 2100 LACIE Atorvastatin Calcium (Lipitor*) 10 mg PO DAILY [facility] Dextrose (D50w Syringe 50 Ml*) 12.5 gm IV PUSH .FOR FS < 60 - SS PRN Finasteride (Proscar Tab*) 5 mg PO DAILY LACIE Heparin Sodium (Porcine) (Heparin Vial(*)) 5,000 units SUBCUT Q12HR LACIE Heparin Sodium (Porcine) (Heparin Flush Picc/Ml/Cvc(*)) 1 - 3 ml FLUSH 0600, 1800 LACIE Insulin Human Lispro (Humalog*) 0 units SUBCUT Q6HR LACIE Lansoprazole (Prevacid Solutab*) 30 mg G TUBE DAILY [facility] Multivitamins (Theragran W/Minerals Liq*) 15 ml PO DAILY LACIE Ondansetron HCl (Zofran Inj*) 4 mg IV Q6H PRN Phenobarbital (Phenobarbital Liq(*)) 30 mg PO BID LACIE Phenytoin Sodium (Dilantin Susp(*)) 100 mg G TUBE BID LACIE Potassium Phos/Sodium Phos (Neutra Phos 250 Mg Juan Daniel*) 250 mg G TUBE BID [facility] Vital Signs 11/23/16 11/23/16 11/23/16 12:27 13:05 16:10 Temperature 97.4 F Pulse Rate 103 99 Respiratory 18 16 20 Rate Blood Pressure 129/87 (mmHg) O2 Sat by Pulse 96 98 Oximetry 11/24/16 10:13 Temperature Pulse Rate 105 Respiratory 22 Rate Blood Pressure (mmHg) O2 Sat by Pulse 89 Oximetry Oxygen Devices in Use Now: Nasal Cannula - 2L Appearance: Middle-aged M, laying in bed in NAD Eyes: No Scleral Icterus Ears/Nose/Mouth/Throat: Mucous Membranes Moist, - - large lower lip Neck: NL Appearance and Movements; NL JVP Respiratory: Symmetrical Chest Expansion and Respiratory Effort, - - Wet expiratory BS, inspiratory sounds clear Cardiovascular: NL Sounds; No Murmurs; No JVD, - - Mild tachycardia Abdominal: NL Sounds; No Tenderness; No Distention Lymphatic: No Cervical Adenopathy Extremities: No Edema Skin: No Rash or Ulcers Neurological: - - Opens eyes to voice, non-verbal Result Diagrams: 11/22/16 06:42 11/22/16 06:42 Microbiology and Other Data: Assess/Plan/Problems-Billing Assessment: Acute hypoxic respiratory failure 2/2 HCAP vs aspiration PNA requiring intubation, septic shock, dysphagia in a 66 yo M with severe developmental delay , HTN, HLD, DM, seizure disorder, BPH - Patient Problems (1) Acute respiratory failure with hypoxia Current Visit: No Comment: 2/2 PNA (aspiration vs HCAP). Currently on 2L and tolerating well. Off antibiotics. Now he is a bit more tachycardic, will check CBC, BMP. (2) Dysphagia Current Visit: No Status: Acute Comment: Continue TF. [employer] eval on 11/25, not convinced he will be able to tolerate much. If does not do well with swallow eval will need to have discussion about PEG with appropriate parties (3) Seizure disorder Current Visit: No Comment: Seizure precautions c/w pheobarbital and phenytoin (4) Diabetes Current Visit: No Comment: Cont ISS with TF (5) BPH (benign prostatic hyperplasia) Current Visit: Yes Comment: Continue finasteride (6) Goals of care, counseling/discussion Current Visit: Yes Comment: Palliative Care involved. DNR/DNI discussion appropriate and medical surrogate decision making committee paperwork filled out. Ethics met 11/22 (7) DVT prophylaxis Current Visit: No Comment: SQ heparin
[2016-11-24 11:59] LABS: Hematocrit 32 % (42-52); Hemoglobin 10.4 g/dl (14.0-18.0); Mean Corpuscular HGB Conc 33 g/dl (31-36); Mean Corpuscular Hemoglobin 33 pg (27-31); Mean Corpuscular Volume 101 fL (80-94); Red Blood Count 3.15 10^6/ul (4.0-5.4); Red Cell Distribution Width 15 % (10.5-15); White Blood Count 8.2 10^3/ul (3.5-10.8)
[2016-11-24 12:09] LABS: Blood Urea Nitrogen 24 mg/dL (6-24); CO2 Carbon Dioxide 38 mmol/L (22-32); Calcium 8.7 mg/dL (8.6-10.3); Chloride 97 mmol/L (101-111); EGFR African American 355.9 (>60); EGFR Non-African American 276.8 (>60); Glucose 183 mg/dL (70-100); Sodium 135 mmol/L (133-145)
[2016-11-24 12:20] LABS: Comments Flag Yes
[2016-11-24 12:27] LABS: Add Diff/Slide Review? Slide Review Added
[2016-11-24] MEDS: Acetaminophen ADULT LIQ* 650 MG/20.3 ML UDC PO PRN (15:32)
--- NOTE | 2016-11-24 16:46 | RAD ---
INDICATION: Hypoxia COMPARISON: Chest x-ray dated November 17, 1999 TECHNIQUE: Single AP portable view of the chest was obtained. FINDINGS: Image quality is compromised due to the relative inferiority of a portable chest x-ray. There is near complete opacification of the entire right lung with only a small amount of aeration noted at the lateral superior margin of the right lung. Left lung is adequately aerated. Density seen at the mid-level lateral aspect of the left lung appears to have resolved. The gastric tube terminates below the diaphragm with the tip overlying the gastric fundus. IMPRESSION: Interval appearance of near complete opacification of the right lung since the November 17, 2016 chest x-ray. Etiologies could include pneumonia or large pleural effusion with or without the presence of a large pneumothorax.
[2016-11-24] MEDS ORDERED: Meropenem 1 GM PREMIX(*) 1 GM/50 ML BAG IV SCH (18:00)
--- NOTE | 2016-11-24 18:03 | PN ---
Hospitalist Progress Note Patient with persistent tachycardia throughout the day with subsequent fever. Has required suctioning often with copious secretions. Imaging shows near complete collapse of R lung, likely due to aspiration/mucous plugging. Spoke with Dr. Philip, will transfer patient back to ICU as he will likely need re- intubation.
[2016-11-24] MEDS ORDERED: fentaNYL* 50 MCG/ML 2 ML VIAL (100 MCG VIAL) ONE (18:24)
--- NOTE | 2016-11-24 18:26 | RAD ---
INDICATION: Further characterization of right lung opacification COMPARISON: Same day chest x-ray that shows near complete opacification of the right lung as well as CT of the chest dated October 23, 2016. TECHNIQUE: Axial source images of the chest were acquired without intravenous contrast from just above the lung apices to the base of the diaphragm. Coronal and sagittal reconstructed images were acquired. FINDINGS: Near complete consolidation of the right lung with only a small portion of the anterior right upper lobe exhibiting appropriate aeration. There are scattered air bronchograms. This appearance has progressed when compared to the October 23, 2016 CT examination. There is a moderate-sized pleural effusion. Patchy infiltrates are seen throughout the left lung but the left lung is comparatively well aerated. There is density at the dependent-most portion of the left lower lobe adjacent to a small left-sided pleural effusion. The right mainstem bronchus extending to the mid-level trachea exhibits air-fluid level, possibly representing secretions. The heart is normal in size. There is no evidence of pericardial effusion. There is no evidence of aortic aneurysm or dissection. There is no readily apparent mediastinal, hilar, or axillary lymphadenopathy. Multilevel loss of intervertebral disc height is noted. The gastric tube terminates in the gastric fundus. A large amount of stool is incidentally noted throughout the colon. IMPRESSION: 1. There is near complete consolidation of the left lung with only a small portion of the anterior right upper lobe exhibiting aeration with scattered air bronchograms and a moderate pleural effusion. 2. There are patchy infiltrates in the left lung with dependent atelectasis and a small left-sided pleural effusion. 3. There are layering heterogeneously attenuating material in the dependent inferior trachea and right mainstem bronchus possibly representing secretions. Bronchoscopy will most reliably identify this material. 4. Additional chronic, degenerative and iatrogenic findings described in the body of the report.
[2016-11-24] MEDS ORDERED: fentaNYL* 50 MCG/ML 5 ML VIAL (250 MCG VIAL) ONE (18:42)
[2016-11-24] MEDS ORDERED: Propofol* 10 MG/ML 20 ML BTL IV PUSH ONE ×2 (18:54→19:09)
[2016-11-24] MEDS ORDERED: fentaNYL* 50 MCG/ML 2 ML VIAL (100 MCG VIAL) IV SLOW PU ONE (19:08)
[2016-11-24] MEDS ORDERED: NS 0.9% 1000 ML* 1,000 ML IV ONE (19:09)
[2016-11-24] MEDS ORDERED: LORazepam INJ* 2 MG/ML 1 ML VIAL IV PUSH PRN (19:10)
[2016-11-24] MEDS ORDERED: Propofol* 100 ML ONE (19:12)
--- NOTE | 2016-11-24 19:24 | PN ---
Progress Note - Progress Note Note: CRITICAL CARE MEDICINE Date: 11/24/16 Time: 1630 SUBJECTIVE: Patient seen and d/w hospitalist. Pt well known to me. Dec BS on R with white out and obvious aspiration and no secretion clearance on R with R mainstem full of secretions. PHYSICAL EXAM: Vital Signs: Reviewed. Neurologic: about baseline. HEENT: pupils reactive. chronic features. frothy secretion partly bloody in oral pharynx. Cardiovascular: distant, S1 S2 Respiratory: no ventilation on R and poor phases on left. same poor airway and signs of tbm with abd resp and paradoxical breathing of chest wall Abdomen: Soft Extremities: Warm. edema better Access: picc LABS: Reviewed. IMAGING: Reviewed. MEDICATIONS: Reviewed. ASSESSMENT/PLAN: 66 M with sever MR presenting with recurrent pna - question aspiration vs HCAP. Acute hypoxic resp failure Septic shock - resolving Severe MR Deconditioning Dysphagia malnutrition - mod degree Further aspirations and inability to clear secretions. Needs intubation now and will need quick emergent mini bronch to see if we can open mainstem bronchus and then allow ppv and standard pulm toilet to help overcome versus need for real bronch. No need for abx. Hopefully doesnt need sedation. prns. IVF bolus and then resume tf. Need to follow up with need for DNR/DNI with one trial of extubation as such to see if he can try again, but its becoming een clearer his mortality. Supportive and preventative care as ordered. SUP: tf VTE prophylaxis: heparin Cortez catheter out Disposition: ICU Code Status: Full Critical Care Time: 35min, exclu procedures Musa Philip DO
--- NOTE | 2016-11-24 19:46 | PN ---
Progress Note - Progress Note Note: CRITICAL CARE MEDICINE PROCEDURE NOTE DATE: 11/24/16 TIME: 1710 SERVICE: Critical Care Medicine LOCATION OF PROCEDURE: ICU PROCEDURE: Endotracheal intubation PROCEDURALIST: Dr. Philip Consent obtain: No, procedure performed emergently Time out held: Not indicated INDICATION: Acute respiratory failure, aspiration. PROCEDURE: Oxygenation maintained and vitals monitored. Patient in supine position. Pre-medication with fentanyl 50mcg / propofol 50mg. Glidescope #4 inserted with Grade 1 view obtained. copious secretions. 9.0 endotracheal tube inserted to 22cm lip. Good chest rise with breath sounds appreciated in left lung luna. EtCO2 + color change. Ett confirmed with ambo scope and able to extract some secretions from proximal mainstem bronchus, supporting improved ventilation. Portable chest x-ray pending. Patient otherwise tolerated. Repeative failure showing his inability to thrive and waiting for support towards DNR/DNI. Cannot fix his disease process with a trach. F. Jordy Philip, DO
[2016-11-24] MEDS: Chlorhexidine MOUTHWASH 0.12%* 15 ML UDC TOPICAL SCH ×2 (20:02→23:25)
[2016-11-24] MEDS: Aspirin EC Low Dose* 81 MG TAB.EC PO SCH (20:03)
--- NOTE | 2016-11-24 21:16 | RAD ---
INDICATION: Postintubation COMPARISON: Most recent comparison chest x-ray from the same date acquired at 1604 hours TECHNIQUE: Single AP portable view of the chest was obtained on November 24, 2016 at 1952 hours. FINDINGS: Image quality is compromised due to the relative inferiority of a portable chest x-ray. There is been interval placement of an appropriately positioned endotracheal tube with the tip 2.5 cm above the lori. The heart and mediastinum exhibit normal size and contour. There is a thin improved aeration of the right lung relative to the previous chest x-ray. Persistent consolidation is seen obscuring the right lung base. The left lung appears adequately aerated with only mild costophrenic angle blunting. IMPRESSION: Interval placement of an appropriately positioned endotracheal tube with interval improved aeration of the right lung relative to the most recent chest x-ray.
[2016-11-24] MEDS: fentaNYL* 50 MCG/ML 2 ML VIAL (100 MCG VIAL) IV SLOW PU PRN (23:24)
[2016-11-25] MEDS: Chlorhexidine MOUTHWASH 0.12%* 15 ML UDC TOPICAL SCH ×6 (03:43→23:15)
[2016-11-25] MEDS: Acetaminophen ADULT LIQ* 650 MG/20.3 ML UDC PO PRN ×2 (03:52→09:39)
[2016-11-25] MEDS: Insulin LISPRO* 1 UNITS UNIT SUBCUT SCH ×4 (05:54→23:35)
[2016-11-25] MEDS: PHENobarbital LIQ(*) 30 MG/7.5 ML UDC PO SCH ×2 (09:37→20:52)
[2016-11-25] MEDS: Multivitamins ADULT w/MIN LIQ* 15 ML UDC PO SCH (09:37)
[2016-11-25] MEDS: Atorvastatin* 10 MG TAB PO SCH (09:38)
[2016-11-25] MEDS: Lansoprazole SOLUTAB* 30 MG G TUBE SCH (09:38)
[2016-11-25] MEDS: Finasteride TAB* 5 MG PO SCH (09:38)
[2016-11-25] MEDS: Potassium & Sodium Phos 250MG* = 1 PACKET G TUBE SCH ×2 (09:38→20:54)
[2016-11-25] MEDS: Heparin VIAL(*) 5000 UNITS/ML VIAL (FIVE THOUSAND) SUBCUT SCH ×2 (09:38→20:55)
[2016-11-25] MEDS: Acetaminophen ADULT LIQ* 650 MG/20.3 ML UDC PO SCH ×2 (09:39→20:52)
[2016-11-25] MEDS: Phenytoin SUSP(*) 100 MG/4 ML UDC (100 MG) G TUBE SCH ×2 (09:53→20:53)
--- NOTE | 2016-11-25 10:17 | PN ---
Progress Note - Progress Note Note: Palliative Care Follow up Note Patient developed acute hypoxic respiratory failure on 11/24 and was reintubated. This is his third intubation this hospitalization since 11/13/16. Appears to be secondary to aspiration pneumonia leading to complete white out of his right lung. Of note, he was admitted with left lobe Pneumonia. Patient never had official swallow evaluation but there was concern that he would not do well with PO feeds. Plan today is for Dr. Salazar to do a repeat CXR if right lung remains opacified he will attempt a therapuetic bronchoscope and see how he responds. Poor prognosis for this patient. Concern that he will not be successfully extubated and that he will require a trach. Paperwork in process for [facility] for DNR/DNI. If patient is not successfully weaned from vent a third time then additional discussion for trach or comfort measures will need to be addressed.
--- NOTE | 2016-11-25 11:35 | RAD ---
Indication: RIGHT lung atelectasis. Cardiovascular disease. Diabetes. Comparison: November 24, [address] Technique: Upright AP 1115 hours Report: Endotracheal tube tip 2 cm above the Alley. Tip of nasogastric tube approximates the gastric fundus body junction of the greater curvature. Interval decrease in magnitude of RIGHT lung atelectasis. Mild prominence of the interstitial markings. Negative for pleural effusion or pneumothorax. Negative for cardiomegaly. Unremarkable central pulmonary vasculature. IMPRESSION: Significant partial resolution of RIGHT lung atelectasis compared with exam of one day prior.
--- NOTE | 2016-11-25 13:01 | PN ---
Critical Care Services: Patient remains on ventilator after intubation for acute respiratory failure due to retained respiratory secretions leading to complete atelectasis of the right lung. CXR today (after intubation and mechanical ventilation) shows re- aeration of the right lung. Vital Signs: Temp Pulse Resp BP SpO2 FiO2 98.2 F 89 12 96/64 97 30 Physical Exam: Gen:Unresponsive Lungs:BS equal bilaterally Abdomen: Not distended Extremities:No cyanosis or edema Fluid Balance (Past 24 Hours): 11/25/16 06:59 Intake Total 2372 Output Total 1150 Balance +1222 Weight 122 lb Intake: IV Fluids 1000 Bolus NS 1000 Oral Tube Feeding 1137 Tube Feeding Flush Amount 205 NG Tube Irrigate Amount 30 Output: Urine 1150 Labs: 11/24/16 11/24/16 11/24/16 12:59 18:00 23:24 Potassium 4.5 POC Glucose (mg/dL) 189 H 191 H 11/25/16 05:40 Potassium POC Glucose (mg/dL) 243 Studies: CXR :aeration of right lung, but there is an elevated right hemidiaphragm (? paralysis) Nutrition: Tube feedings Impression: Recurrent respiratory failure due to retained respiratory secretions (caused by aspiration of mouth secretions plus ineffective clearance mechanisms). This is a chronic and probably progressive problem, and the overall prognosis is very poor. Plan: Will attempt to wean when feasible, but will not extubate until decision is made about a tracheostomy (which will be needed to help clear secretions from the airways. Critical Care Time: 35 minutes
[2016-11-25] MEDS: Aspirin EC Low Dose* 81 MG TAB.EC PO SCH (20:54)
[2016-11-25] MEDS: fentaNYL* 50 MCG/ML 2 ML VIAL (100 MCG VIAL) IV SLOW PU PRN (23:14)
[2016-11-26] MEDS: Bisacodyl SUPP* 10 MG SUPP PR SCH ×2 (04:12→07:49)
[2016-11-26] MEDS: Magnesium Hydroxide LIQ* 30 ML UDC NG TUBE SCH ×2 (04:12→07:49)
[2016-11-26] MEDS: Chlorhexidine MOUTHWASH 0.12%* 15 ML UDC TOPICAL SCH ×5 (04:12→19:58)
[2016-11-26] MEDS: Insulin LISPRO* 1 UNITS UNIT SUBCUT SCH ×3 (05:19→18:25)
[2016-11-26] MEDS: Acetaminophen ADULT LIQ* 650 MG/20.3 ML UDC PO SCH ×2 (07:48→21:03)
[2016-11-26] MEDS: Phenytoin SUSP(*) 100 MG/4 ML UDC (100 MG) G TUBE SCH ×2 (07:49→21:06)
[2016-11-26] MEDS: Lansoprazole SOLUTAB* 30 MG G TUBE SCH (07:49)
[2016-11-26] MEDS: Atorvastatin* 10 MG TAB PO SCH (07:49)
[2016-11-26] MEDS: Multivitamins ADULT w/MIN LIQ* 15 ML UDC PO SCH (07:49)
[2016-11-26] MEDS: PHENobarbital LIQ(*) 30 MG/7.5 ML UDC PO SCH ×2 (07:49→21:03)
[2016-11-26] MEDS: Potassium & Sodium Phos 250MG* = 1 PACKET G TUBE SCH ×2 (07:49→21:04)
[2016-11-26] MEDS: Heparin VIAL(*) 5000 UNITS/ML VIAL (FIVE THOUSAND) SUBCUT SCH ×2 (08:50→21:04)
--- NOTE | 2016-11-26 15:34 | PN ---
Progress Note - Progress Note Note: Palliative Care Follow up Note: Patient remains intubated. Towel over his face , per staff he prefers this. No acute distress. Did not wake him. Spoke with Dr. Salazar regarding end of life care. Concern that he will not be able to protect his airway and that he may be a trach candidate due to his progression of his anatomy and his debility. Will reach out to the [facility] regarding withdrawal of care vs trach placement. The concern if he does get a trach that this becomes an extraordinary burden and that he will be ventilator dependent and will not be able to return back to his residential home as they cannot serve individuals with a trach. Per social work they did reach out to his advocate who is a former staff at [facility] who no longer lives locally. She is in support of DNR/DNI.
--- NOTE | 2016-11-26 17:15 | PN ---
Critical Care Services: Patient remains on ventilator. I do not plan to wean and extubate this patient, as I believe extubation will result in acute respiratory failure due to retained secretions and upper airway obstruction arising from the patient's anatomic anomalies. Tracheostomy would be necessary to prevent future episodes of respiratory failure, but this would require that the patient be sent to a facility that could not provide the supportive care that he has received at the [facility]. Vital Signs: Temp Pulse Resp BP SpO2 FiO2 98.4 F 88 12 116/68 96 25 Physical Exam: Gen:Awake but poorly responsive to verbal commands Lungs:occasional rhonchi Abdomen: Not distended Extremities:No cyanosis or edema Fluid Balance (Past 24 Hours): 11/26/16 06:59 Intake Total 1360 Output Total 2350 Balance -990 Weight 117 lb Intake: IV Fluids Bolus NS Oral Tube Feeding 1150 Tube Feeding Flush Amount 90 NG Tube Irrigate Amount 120 Output: Urine 1450 Cortez 900 Other: Estimated Void Date of Last Bowel Movement # Bowel Movements Estimated Stool Amount # Voids Labs: 11/25/16 11/25/16 11/26/16 17:18 23:14 05:13 POC Glucose (mg/dL) 171 H 200 H 184 H 11/26/16 11:27 POC Glucose (mg/dL) 215 H Studies: None today Nutrition: Tube feedings Impression: Patient is oxygenating well while on the ventilator, but the underlying problem is recurrent respiratory failure from retained secretions, which will not resolve with a period of mechanical ventilation. Plan: Confer with [facility] about future care, specifically the need for a tracheostomy. Dr. Leblanc is aware of the particulars in this case. Critical Care Time: 25 minutes
[2016-11-26] MEDS: Aspirin EC Low Dose* 81 MG TAB.EC PO SCH (21:03)
[2016-11-27] MEDS: Chlorhexidine MOUTHWASH 0.12%* 15 ML UDC TOPICAL SCH ×6 (00:27→20:30)
[2016-11-27] MEDS: Insulin LISPRO* 1 UNITS UNIT SUBCUT SCH ×4 (00:27→18:24)
[2016-11-27 06:10] LABS: Hematocrit 27 % (42-52); Hemoglobin 9.1 g/dl (14.0-18.0); Mean Corpuscular HGB Conc 34 g/dl (31-36); Mean Corpuscular Hemoglobin 34 pg (27-31); Mean Corpuscular Volume 99 fL (80-94); Mean Platelet Volume 10 um3 (7.4-10.4); Red Blood Count 2.72 10^6/ul (4.0-5.4); Red Cell Distribution Width 15 % (10.5-15); White Blood Count 7.1 10^3/ul (3.5-10.8)
[2016-11-27 06:11] LABS: Comments Flag Yes
[2016-11-27 06:25] LABS: BUN/Creatinine Ratio 67.5 (8-20); Calcium 8.4 mg/dL (8.6-10.3); EGFR African American 275.1 (>60); EGFR Non-African American 213.9 (>60); Potassium 3.2 mmol/L (3.5-5.0)
--- NOTE | 2016-11-27 08:06 | RAD ---
INDICATION: Pneumonia COMPARISON: Most recent comparison chest x-rays dated November 25, 2016 TECHNIQUE: Single AP portable view of the chest was obtained. FINDINGS: Image quality is compromised due to the relative inferiority of a portable chest x-ray. The endotracheal tube and gastric tube are appropriately positioned. The heart and mediastinum exhibit normal size and contour. There is persistent elevation of the right hemidiaphragm. Patchy densities are seen overlying the right lung improved from the November 24 chest x-ray but more numerous and confluent compared to the November 25 chest x-ray. There is air seen beneath the left hemidiaphragm which is most likely contained within the gastric fundus. IMPRESSION: 1. Slight worsening in aeration of the right lung relative to the most recent chest x-ray but improved from the November 24 chest x-ray. 2. Gas is seen beneath the left hemidiaphragm which is most likely contained within the gastric fundus. There is any clinical concern for pneumoperitoneum further characterization can be made with abdominal radiographs in the supine, upright and decubitus positions.
[2016-11-27] MEDS: Magnesium Hydroxide LIQ* 30 ML UDC NG TUBE SCH (08:15)
[2016-11-27] MEDS: Heparin VIAL(*) 5000 UNITS/ML VIAL (FIVE THOUSAND) SUBCUT SCH (08:16)
[2016-11-27] MEDS: Multivitamins ADULT w/MIN LIQ* 15 ML UDC PO SCH (08:16)
[2016-11-27] MEDS: PHENobarbital LIQ(*) 30 MG/7.5 ML UDC PO SCH ×2 (08:16→20:31)
[2016-11-27] MEDS: Acetaminophen ADULT LIQ* 650 MG/20.3 ML UDC PO SCH ×2 (08:16→20:30)
[2016-11-27] MEDS: Phenytoin SUSP(*) 100 MG/4 ML UDC (100 MG) G TUBE SCH ×2 (08:17→20:30)
[2016-11-27] MEDS: Lansoprazole SOLUTAB* 30 MG G TUBE SCH (08:17)
[2016-11-27] MEDS: Potassium & Sodium Phos 250MG* = 1 PACKET G TUBE SCH ×2 (08:17→20:31)
[2016-11-27] MEDS: Atorvastatin* 10 MG TAB PO SCH (08:17)
[2016-11-27] MEDS: Bisacodyl SUPP* 10 MG SUPP PR SCH (08:20)
--- NOTE | 2016-11-27 17:04 | PN ---
Critical Care Services: Patient remains on ventilator. Is clinically stable, and without evidence of an active infection. Vital Signs: Temp Pulse Resp BP SpO2 FiO2 98 F 78 12 105/67 99 25 Physical Exam: Gen:Awake but not aware Lungs: scattered rhonchi. No crackles or wheezes. Extremities:No cyanosis Fluid Balance (Past 24 Hours): 11/27/16 06:59 Intake Total 1565 Output Total 1250 Balance +315 Weight 118 lb Intake: IV Fluids 0 Bolus NS 0 Tube Feeding 1205 Tube Feeding Flush Amount 360 NG Tube Irrigate Amount Output: Urine 650 Cortez 600 Other: Date of Last Bowel 11/26/16 Movement # Bowel Movements 1 Estimated Stool Amount Large Labs: 11/27/16 05:50 WBC 7.1 Hgb 9.1 Hct 27 Plt Count 89 Sodium 142 Potassium 3.2 Chloride 104 Carbon Dioxide 31 BUN 27 Creatinine 0.40 Glucose 168 Calcium 8.4 Studies: CXR: Continued aeration of right lung. Nutrition: Tube feedings Impression: Doing well on the ventilator. Etiology of the thrombocytopenia is unclear - ? HIT. Plan: D/c heparin and send heparin-associated antibody. Otherwise maintain current management plan - await meeting with [facility] about future plans for this patient.
[2016-11-27] MEDS: Aspirin EC Low Dose* 81 MG TAB.EC PO SCH (20:30)
[2016-11-28] MEDS: Insulin LISPRO* 1 UNITS UNIT SUBCUT SCH ×4 (00:37→18:04)
[2016-11-28] MEDS: Chlorhexidine MOUTHWASH 0.12%* 15 ML UDC TOPICAL SCH ×6 (00:37→22:50)
[2016-11-28 05:24] LABS: Hematocrit 26 % (42-52); Hemoglobin 8.7 g/dl (14.0-18.0); Mean Corpuscular HGB Conc 34 g/dl (31-36); Mean Corpuscular Hemoglobin 34 pg (27-31); Mean Corpuscular Volume 101 fL (80-94); Mean Platelet Volume 12 um3 (7.4-10.4); Red Blood Count 2.57 10^6/ul (4.0-5.4); Red Cell Distribution Width 16 % (10.5-15); White Blood Count 6.8 10^3/ul (3.5-10.8)
[2016-11-28] MEDS: Bisacodyl SUPP* 10 MG SUPP PR SCH (08:16)
[2016-11-28] MEDS: Atorvastatin* 10 MG TAB PO SCH (08:29)
[2016-11-28] MEDS: Multivitamins ADULT w/MIN LIQ* 15 ML UDC PO SCH (08:29)
[2016-11-28] MEDS: Potassium & Sodium Phos 250MG* = 1 PACKET G TUBE SCH ×2 (08:29→22:26)
[2016-11-28] MEDS: Lansoprazole SOLUTAB* 30 MG G TUBE SCH (08:29)
[2016-11-28] MEDS: PHENobarbital LIQ(*) 30 MG/7.5 ML UDC PO SCH ×2 (08:29→22:26)
[2016-11-28] MEDS: Acetaminophen ADULT LIQ* 650 MG/20.3 ML UDC PO SCH ×2 (08:29→22:26)
[2016-11-28] MEDS: Phenytoin SUSP(*) 100 MG/4 ML UDC (100 MG) G TUBE SCH ×2 (08:29→22:26)
[2016-11-28] MEDS: Magnesium Hydroxide LIQ* 30 ML UDC NG TUBE SCH (08:29)
--- NOTE | 2016-11-28 19:52 | PN ---
Critical Care Services: No change in overall clinical status.patient remains on ventilator and is alert. Vital Signs: Temp Pulse Resp BP SpO2 FiO2 98.4 F 100 17 128/80 96 25 Physical Exam: Gen:Resting comfortably Lungs:scattered rhonchi. No crackles or wheezes. Extremities:No cyanosis or edema Fluid Balance (Past 24 Hours): 11/28/16 06:59 Intake Total 1174 Output Total 1225 Balance -51 Weight 120 lb Intake: IV Fluids Bolus NS Oral 0 Tube Feeding 1144 Tube Feeding Flush Amount 30 NG Tube Irrigate Amount Output: Urine Cortez 1225 Other: Date of Last Bowel Movement # Bowel Movements Estimated Stool Amount Labs: 11/28/16 11/28/16 11/28/16 00:25 05:10 06:06 WBC 6.8 RBC 2.57 L Hgb 8.7 L Hct 26 L MCV 101 H MCH 34 H MCHC 34 RDW 16 H Plt Count 171 MPV 12 H POC Glucose (mg/dL) 184 H 176 H Studies: None today Nutrition: Tube feedings Impression: 1. Patient continues on ventilator, while we await a meeting with the [facility] on the issue of a tracheostomy. 2. Thrombocytopenia has resolved off heparin. Plan: Continue mechanical ventilation, and general supporting care.
--- NOTE | 2016-11-28 21:54 | RAD ---
INDICATION: Check tube placement COMPARISON: None TECHNIQUE: A supine of the abdomen are submitted. FINDINGS: Bones: There are no acute bony findings. There is osteopenia. There is a scoliotic deformity Soft tissues: The soft tissues appear normal. The psoas margins are sharp. Bowel gas pattern: There is moderate gaseous distention Calcifications: There are no abnormal calcifications. Other: There is an endotracheal tube 1 cm above the lori. A nasogastric tube passes normally through the mediastinum and is coiled in the fundus of the stomach. IMPRESSION: ENDOTRACHEAL AND NASOGASTRIC TUBES POSITIONED DESCRIBED. MODERATE GASEOUS DISTENTION.
[2016-11-28] MEDS: Aspirin EC Low Dose* 81 MG TAB.EC PO SCH (22:26)
[2016-11-29] MEDS: Insulin LISPRO* 1 UNITS UNIT SUBCUT SCH ×4 (01:18→17:59)
[2016-11-29] MEDS: Chlorhexidine MOUTHWASH 0.12%* 15 ML UDC TOPICAL SCH ×6 (01:18→20:45)
[2016-11-29 06:49] LABS: Hematocrit 30 % (42-52); Hemoglobin 10.1 g/dl (14.0-18.0); Mean Corpuscular HGB Conc 34 g/dl (31-36); Mean Corpuscular Hemoglobin 34 pg (27-31); Mean Corpuscular Volume 101 fL (80-94); Mean Platelet Volume 11 um3 (7.4-10.4); Red Blood Count 2.97 10^6/ul (4.0-5.4); Red Cell Distribution Width 15 % (10.5-15); White Blood Count 9.8 10^3/ul (3.5-10.8)
[2016-11-29] MEDS: PHENobarbital LIQ(*) 30 MG/7.5 ML UDC PO SCH ×2 (08:04→20:50)
[2016-11-29] MEDS: Atorvastatin* 10 MG TAB PO SCH (08:05)
[2016-11-29] MEDS: Lansoprazole SOLUTAB* 30 MG G TUBE SCH (08:05)
[2016-11-29] MEDS: Phenytoin SUSP(*) 100 MG/4 ML UDC (100 MG) G TUBE SCH ×2 (08:05→20:50)
[2016-11-29] MEDS: Potassium & Sodium Phos 250MG* = 1 PACKET G TUBE SCH ×2 (08:05→20:50)
[2016-11-29] MEDS: Multivitamins ADULT w/MIN LIQ* 15 ML UDC PO SCH (08:05)
[2016-11-29] MEDS: Acetaminophen ADULT LIQ* 650 MG/20.3 ML UDC PO SCH ×2 (08:05→20:50)
[2016-11-29] MEDS: Magnesium Hydroxide LIQ* 30 ML UDC NG TUBE SCH (08:05)
[2016-11-29] MEDS: Bisacodyl SUPP* 10 MG SUPP PR SCH (08:05)
--- NOTE | 2016-11-29 12:28 | PN ---
Critical Care Services: Patient continues on ventilator. No new issues. Vital Signs: Temp Pulse Resp BP SpO2 FiO2 97.1 F 83 13 134/74 99 25 Physical Exam: Gen:Awake - no apparent discomfort. Lungs:occasional rhonchi Extremities:No cyanosis or edema. Fluid Balance (Past 24 Hours): 11/29/16 06:59 Intake Total 791 Output Total 710 Balance +81 Weight 128 lb Intake: IV Fluids 0 Bolus NS NS (0.9%) 0 Oral Tube Feeding 671 Tube Feeding Flush Amount 120 Output: Urine 410 Cortez 300 Labs: 11/29/16 06:40 WBC 9.8 Hgb 10.1 Hct 30 L MCV 101 Plt Count 154 MPV 11 POC Glucose (mg/dL) NOTE: Macrocytosis. Studies: None today Nutrition: Tube feedings Impression: Clinically stable on the ventilator. Plan: Continue mechanical ventilation. Still awaiting meeting with [facility] regarding tracheostomy. Will start folate for macrocytosis.
--- NOTE | 2016-11-29 13:48 | PN ---
Progress Note - Progress Note Note: Follow up Palliative care consult note. Patient much more alert today. [facility] staff brought in his movie and his favorite sweatshirt. Patient pulled out NGT last evening and tried to pull out his ETT. He is now in soft restraints. Unfortunately the [facility] cannot convene regarding end of life care for this individual until 12/05. Concern that patient may continue to become more deconditioned and deteriorate while awaiting a decision. He is at high risk for hospital acquired infection as well. It is unfortunate that decisions cannot be made on this patient's behalf until [facility] has convened which is about 2 weeks after the paperwork was submitted for request for DNR/DNI and end of life care.
[2016-11-29 17:40] LABS: Heparin PF4 Ab Reactivity 14 % (<20); Heparin PF4 Antibody Interp Negative (Negative)
[2016-11-29] MEDS: Aspirin EC Low Dose* 81 MG TAB.EC PO SCH (20:51)
[2016-11-30] MEDS: Insulin LISPRO* 1 UNITS UNIT SUBCUT SCH ×4 (00:21→17:48)
[2016-11-30] MEDS: Chlorhexidine MOUTHWASH 0.12%* 15 ML UDC TOPICAL SCH ×6 (00:21→20:50)
[2016-11-30] MEDS: Bisacodyl SUPP* 10 MG SUPP PR SCH (08:32)
[2016-11-30] MEDS: Atorvastatin* 10 MG TAB PO SCH (08:37)
[2016-11-30] MEDS: Acetaminophen ADULT LIQ* 650 MG/20.3 ML UDC PO SCH ×2 (08:37→20:50)
[2016-11-30] MEDS: Lansoprazole SOLUTAB* 30 MG G TUBE SCH (08:38)
[2016-11-30] MEDS: Multivitamins ADULT w/MIN LIQ* 15 ML UDC PO SCH (08:38)
[2016-11-30] MEDS: Magnesium Hydroxide LIQ* 30 ML UDC NG TUBE SCH (08:38)
[2016-11-30] MEDS: PHENobarbital LIQ(*) 30 MG/7.5 ML UDC PO SCH ×2 (08:38→20:50)
[2016-11-30] MEDS: Potassium & Sodium Phos 250MG* = 1 PACKET G TUBE SCH ×2 (08:38→20:50)
[2016-11-30] MEDS: Phenytoin SUSP(*) 100 MG/4 ML UDC (100 MG) G TUBE SCH ×2 (08:39→20:50)
[2016-11-30] MEDS: Folic Acid IV* 1 MG/0.2 ML SYRINGE IV SCH (11:50)
--- NOTE | 2016-11-30 16:25 | PN ---
Progress Note - Progress Note Note: Patient continues on ventilator. Nothing new to report. No evidence of active lung infection. Patient appears comfortable on the ventilator. Still await meeting regarding future management plans.
[2016-11-30] MEDS ORDERED: KCL 20 MEQ/100 ML IVPREMIX* 20 MEQ/100 ML BAG IV SCH (17:00)
[2016-11-30] MEDS: KCL 20 MEQ/100 ML IVPREMIX* 20 MEQ/100 ML BAG IV SCH ×2 (17:49→20:48)
[2016-11-30] MEDS: Aspirin EC Low Dose* 81 MG TAB.EC PO SCH (20:50)
[2016-12-01] MEDS: Insulin LISPRO* 1 UNITS UNIT SUBCUT SCH ×4 (00:07→18:19)
[2016-12-01] MEDS: Chlorhexidine MOUTHWASH 0.12%* 15 ML UDC TOPICAL SCH ×6 (00:11→21:11)
[2016-12-01 06:58] LABS: BUN/Creatinine Ratio 64.3 (8-20); Calcium 8.4 mg/dL (8.6-10.3); EGFR African American 415.2 (>60); EGFR Non-African American 322.9 (>60); Potassium 4.1 mmol/L (3.5-5.0)
[2016-12-01] MEDS: Bisacodyl SUPP* 10 MG SUPP PR SCH (07:49)
[2016-12-01] MEDS: PHENobarbital LIQ(*) 30 MG/7.5 ML UDC PO SCH ×2 (07:49→21:12)
[2016-12-01] MEDS: Atorvastatin* 10 MG TAB PO SCH (07:49)
[2016-12-01] MEDS: Multivitamins ADULT w/MIN LIQ* 15 ML UDC PO SCH (07:49)
[2016-12-01] MEDS: Acetaminophen ADULT LIQ* 650 MG/20.3 ML UDC PO SCH ×2 (07:49→21:11)
[2016-12-01] MEDS: Lansoprazole SOLUTAB* 30 MG G TUBE SCH (07:49)
[2016-12-01] MEDS: Magnesium Hydroxide LIQ* 30 ML UDC NG TUBE SCH (07:49)
[2016-12-01] MEDS: Potassium & Sodium Phos 250MG* = 1 PACKET G TUBE SCH ×2 (07:50→21:12)
[2016-12-01] MEDS: Phenytoin SUSP(*) 100 MG/4 ML UDC (100 MG) G TUBE SCH ×2 (07:50→21:12)
[2016-12-01] MEDS: Folic Acid IV* 1 MG in NS 0.9% 50 ML* 50 ML IV SCH (10:06)
--- NOTE | 2016-12-01 15:38 | PN ---
Critical Care Services: Patient remains on ventilator. He is awake, but seems comfortable without sedation. O2 requirement is minimal. Vital Signs: Temp Pulse Resp BP SpO2 FiO2 97 F 84 12 98/65 98 25 Physical Exam: Gen:As mentioned Lungs:occasional rhonchi. No crackles or wheezes. Extremities:No cyanosis or edema Fluid Balance (Past 24 Hours): 12/01/16 06:59 Intake Total 1387 Output Total 975 Balance +412 Weight 119 lb Intake: Tube Feeding 1212 Tube Feeding Flush Amount 115 NG Tube Irrigate Amount 60 Output: Urine 700 Cortez 275 Labs: 11/30/16 11/30/16 12/01/16 17:40 23:56 06:27 Sodium 141 Potassium 4.1 Chloride 106 Carbon Dioxide 28 BUN 18 Creatinine 0.28 L Glucose 166 POC Glucose (mg/dL) 181 H 209 H NOTE: Potassium has corrected. Studies: None today. Nutrition: Tube feeding Impression: Clinically stable. No signs of active infection. Plan: Continue ventilatory support while awaiting decision about tracheostomy.
[2016-12-01] MEDS: Aspirin EC Low Dose* 81 MG TAB.EC PO SCH (21:11)
[2016-12-02] MEDS: Insulin LISPRO* 1 UNITS UNIT SUBCUT SCH ×4 (00:44→17:59)
[2016-12-02] MEDS: Chlorhexidine MOUTHWASH 0.12%* 15 ML UDC TOPICAL SCH ×6 (00:45→19:41)
[2016-12-02] MEDS: Multivitamins ADULT w/MIN LIQ* 15 ML UDC PO SCH (08:50)
[2016-12-02] MEDS: Phenytoin SUSP(*) 100 MG/4 ML UDC (100 MG) G TUBE SCH ×2 (08:50→21:15)
[2016-12-02] MEDS: Potassium & Sodium Phos 250MG* = 1 PACKET G TUBE SCH ×2 (08:50→21:15)
[2016-12-02] MEDS: Magnesium Hydroxide LIQ* 30 ML UDC NG TUBE SCH (08:50)
[2016-12-02] MEDS: Atorvastatin* 10 MG TAB PO SCH (08:50)
[2016-12-02] MEDS: PHENobarbital LIQ(*) 30 MG/7.5 ML UDC PO SCH ×2 (08:50→21:14)
[2016-12-02] MEDS: Acetaminophen ADULT LIQ* 650 MG/20.3 ML UDC PO SCH ×2 (08:50→21:29)
[2016-12-02] MEDS: Bisacodyl SUPP* 10 MG SUPP PR SCH (08:51)
[2016-12-02] MEDS: Folic Acid IV* 1 MG in NS 0.9% 50 ML* 50 ML IV SCH (08:51)
[2016-12-02] MEDS: Lansoprazole SOLUTAB* 30 MG G TUBE SCH (08:51)
--- NOTE | 2016-12-02 16:12 | PN ---
Progress Note - Progress Note Note: Palliative care follow up note Patient remains alert. Has his sweatshirt over him and muppets are on the TV as well. Patient does often disconnect tubing from vent with the mitts on but has not been able to self extubate or remove his NGT. Dr. Salazar discussed placing patient on t-piece and see how he does. Plan for [facility] on 12/05 for goals of care.
--- NOTE | 2016-12-02 17:21 | PN ---
Progress Note - Progress Note Note: Patient remains intubated. - I have removed ventilatory support (without adverse consequence), because the patient needs the ET tube but not the ventilator. The decision about tracheostomy is still pending. Patient is clinically stable. In fact, there has been no change in the patient's clinical condition for the past week.
[2016-12-02] MEDS: Aspirin Low Dose CHEW TAB* 81 MG PO SCH (21:15)
[2016-12-03] MEDS: Chlorhexidine MOUTHWASH 0.12%* 15 ML UDC TOPICAL SCH ×6 (00:26→21:03)
[2016-12-03] MEDS: Insulin LISPRO* 1 UNITS UNIT SUBCUT SCH ×4 (00:40→18:16)
[2016-12-03] MEDS: Bisacodyl SUPP* 10 MG SUPP PR SCH (08:24)
[2016-12-03] MEDS: Magnesium Hydroxide LIQ* 30 ML UDC NG TUBE SCH (08:24)
[2016-12-03] MEDS: PHENobarbital LIQ(*) 30 MG/7.5 ML UDC PO SCH ×2 (09:31→21:04)
[2016-12-03] MEDS: Atorvastatin* 10 MG TAB PO SCH (09:32)
[2016-12-03] MEDS: Acetaminophen ADULT LIQ* 650 MG/20.3 ML UDC PO SCH ×2 (09:32→21:04)
[2016-12-03] MEDS: Lansoprazole SOLUTAB* 30 MG G TUBE SCH (09:32)
[2016-12-03] MEDS: Potassium & Sodium Phos 250MG* = 1 PACKET G TUBE SCH ×2 (09:32→21:15)
[2016-12-03] MEDS: Multivitamins ADULT w/MIN LIQ* 15 ML UDC PO SCH (09:32)
[2016-12-03] MEDS: Phenytoin SUSP(*) 100 MG/4 ML UDC (100 MG) G TUBE SCH ×2 (09:32→21:04)
[2016-12-03] MEDS ORDERED: Folic Acid TAB* 1 MG ONE (09:42)
[2016-12-03] MEDS: Folic Acid TAB* 1 MG FEED TUBE SCH (09:44)
[2016-12-03] MEDS: Folic Acid IV* 1 MG in NS 0.9% 50 ML* 50 ML IV SCH (11:02)
--- NOTE | 2016-12-03 14:33 | PN ---
Progress Note - Progress Note Note: CRITICAL CARE MEDICINE Date: 12/03/16 Time: 1300 SUBJECTIVE: Patient seen and examined. PHYSICAL EXAM: Vital Signs: Reviewed. Neurologic: about baseline. HEENT: pupils reactive. +secretions Cardiovascular: distant, S1 S2 Respiratory: poor overall ventilation. tpiece Abdomen: Soft Extremities: Warm. dep edema Access: picc LABS: Reviewed. IMAGING: Reviewed. MEDICATIONS: Reviewed. ASSESSMENT/PLAN: 66 M with severe MR presenting with recurrent aspiration pneumonitis Acute hypoxic resp failure Septic shock - resolved from admission Severe MR Deconditioning Dysphagia malnutrition - mod degree Remains with recurrent aspiration. Trying t-piece but unlikely to maintain without at least intermittent ppv but lets see. He appears as comfortable as he can with t-piece. will require suctioning often. again, likely to still develop atelectasis and poor lower airway secretion clearance given aspirations and component of TBM. Consider cxr f/u. Could consider nocturnal ventilation but again would need trach. Will need to decide need for trach for end of life care. Add lantus. keep tf. Supportive and preventative care as ordered. SUP: tf VTE prophylaxis: heparin Disposition: ICU Code Status: Full Critical Care Time: 35min Musa Philip DO
[2016-12-03] MEDS ORDERED: Insulin GLARGINE(*) 1 UNITS UNIT SUBCUT SCH (15:00)
--- NOTE | 2016-12-03 16:27 | PN ---
Progress Note - Progress Note Note: Palliative care consult follow up. Patient awake and watching the muppets on his ipad. Was placed on t-piece yesterday however the concern is that he continues to have copious secretions and will likely need intermittent ventilator support. If he did get a trach then would be removed from his home to an subacute facility to manage his trach and ventilator support. High risk for secondary infections with his underlying chronic lung disease and his inability to maintain his secretions. Will also need a g-tube for artificial nutrition. Per [facility] patient loves food and will no longer able to take PO feeds. Concern that this will impair his quality of life removing his ability to eat and removing him from his home and familiar environment, which could be considered an extraordinary measure to maintain his life.
[2016-12-03] MEDS: Acetaminophen ADULT LIQ* 650 MG/20.3 ML UDC PO PRN (16:50)
[2016-12-03] MEDS: Enoxaparin(*) 40 MG/0.4 ML SYR SUBCUT SCH (16:50)
[2016-12-03] MEDS: Aspirin Low Dose CHEW TAB* 81 MG PO SCH (21:04)
[2016-12-03] MEDS: Folic Acid IV* 1 MG/0.2 ML SYRINGE IV SCH (23:14)
[2016-12-04] MEDS: Insulin LISPRO* 1 UNITS UNIT SUBCUT SCH ×4 (00:53→18:04)
[2016-12-04] MEDS: Chlorhexidine MOUTHWASH 0.12%* 15 ML UDC TOPICAL SCH ×6 (00:53→20:41)
[2016-12-04 05:53] LABS: Venous Bicarbonate HCO3 31.3 mmol/L (24-28)
[2016-12-04 05:56] LABS: Hematocrit 28 % (42-52); Hemoglobin 8.9 g/dl (14.0-18.0); Mean Corpuscular HGB Conc 32 g/dl (31-36); Mean Corpuscular Hemoglobin 33 pg (27-31); Mean Corpuscular Volume 102 fL (80-94); Red Blood Count 2.73 10^6/ul (4.0-5.4); Red Cell Distribution Width 16 % (10.5-15); White Blood Count 6.2 10^3/ul (3.5-10.8)
[2016-12-04 06:00] LABS: Comments Flag Yes
[2016-12-04 06:12] LABS: BUN/Creatinine Ratio 71.4 (8-20); Blood Urea Nitrogen 20 mg/dL (6-24); CO2 Carbon Dioxide 32 mmol/L (22-32); Calcium 8.4 mg/dL (8.6-10.3); Chloride 105 mmol/L (101-111); EGFR African American 415.2 (>60); EGFR Non-African American 322.9 (>60); Glucose 78 mg/dL (70-100); Phosphorus 3.3 mg/dL (2.5-5.0); Sodium 139 mmol/L (133-145)
[2016-12-04] MEDS: Bisacodyl SUPP* 10 MG SUPP PR SCH (08:03)
[2016-12-04] MEDS: Magnesium Hydroxide LIQ* 30 ML UDC NG TUBE SCH (08:03)
[2016-12-04] MEDS: Phenytoin SUSP(*) 100 MG/4 ML UDC (100 MG) G TUBE SCH ×2 (08:17→20:41)
[2016-12-04] MEDS: PHENobarbital LIQ(*) 30 MG/7.5 ML UDC PO SCH ×2 (08:18→20:41)
[2016-12-04] MEDS: Acetaminophen ADULT LIQ* 650 MG/20.3 ML UDC PO SCH ×2 (08:18→20:41)
[2016-12-04] MEDS: Lansoprazole SOLUTAB* 30 MG G TUBE SCH (08:18)
[2016-12-04] MEDS: Multivitamins ADULT w/MIN LIQ* 15 ML UDC PO SCH (08:18)
[2016-12-04] MEDS: Folic Acid TAB* 1 MG FEED TUBE SCH (08:18)
[2016-12-04] MEDS: Potassium & Sodium Phos 250MG* = 1 PACKET G TUBE SCH ×2 (08:19→20:41)
[2016-12-04] MEDS: Atorvastatin* 10 MG TAB PO SCH (08:19)
--- NOTE | 2016-12-04 11:57 | PN ---
Progress Note - Progress Note Note: CRITICAL CARE MEDICINE Date: 12/04/16 Time: 1100 SUBJECTIVE: Patient seen and examined. PHYSICAL EXAM: Vital Signs: Reviewed. Neurologic: baseline. HEENT: pupils reactive. +secretions Cardiovascular: distant, S1 S2 Respiratory: poor overall ventilation but hernán tpiece. +secretion; dec at bases R >L Abdomen: Soft Extremities: Warm. dep edema Access: picc LABS: Reviewed. IMAGING: Reviewed. MEDICATIONS: Reviewed. ASSESSMENT/PLAN: 66 M with severe MR presenting with recurrent aspiration pneumonitis Acute hypoxic resp failure Septic shock - resolved from admission Severe MR Deconditioning Dysphagia malnutrition - mod degree Trial of t-piece continued, but again unlikely to maintain without at least intermittent ppv and vent facility needs due to constant suctioning and ensuing atelectasis. Seems to be maintaining ventilation for now and therefore will try to push longer. Due believe he is at end of life and trach would place burden on his existing life and would only ensure he with trach and or on vent. Meeting tomorrow. dec lantus. keep tf. Supportive and preventative care as ordered. SUP: tf VTE prophylaxis: heparin Disposition: ICU Code Status: Full Critical Care Time: 30min Musa Philip DO
[2016-12-04] MEDS: Enoxaparin(*) 40 MG/0.4 ML SYR SUBCUT SCH (15:29)
[2016-12-04] MEDS: Insulin GLARGINE(*) 1 UNITS UNIT SUBCUT SCH (15:30)
[2016-12-04] MEDS: Aspirin Low Dose CHEW TAB* 81 MG PO SCH (20:41)
[2016-12-05] MEDS: Insulin LISPRO* 1 UNITS UNIT SUBCUT SCH ×3 (01:14→11:33)
[2016-12-05] MEDS: Chlorhexidine MOUTHWASH 0.12%* 15 ML UDC TOPICAL SCH ×6 (04:11→21:50)
--- NOTE | 2016-12-05 08:09 | RAD ---
HISTORY: Pneumonia, follow-up, ventilator dependence COMPARISONS: November 27, 2016 VIEWS:1: Single frontal portable view of the chest at 6:26 AM FINDINGS: LINES AND TUBES: An endotracheal tube is noted. The tip is at the level of the right mainstem bronchus. A gastric tube is noted. The tip is in the left upper quadrant in a prepyloric position. CARDIOMEDIASTINAL SILHOUETTE: The cardiomediastinal silhouette is normal for portable technique. PLEURA: There is blunting of the right costophrenic angle LUNG PARENCHYMA: There is confluent alveolar opacification of the right lower lobe. There is minimal linear opacification of the left lung base ABDOMEN: The upper abdomen is clear. There is no subphrenic gas. BONES AND SOFT TISSUES: No bone or soft tissue abnormalities are noted. IMPRESSION: 1. LINES AND TUBES ABOVE. THE POSITION OF THE ENDOTRACHEAL TUBE WAS DISCUSSED WITH THE NURSE CARING FOR THE PATIENT AT APPROXIMATELY 8:05 AM ON DECEMBER 05, 2016. 2. SMALL RIGHT PLEURAL EFFUSION WITH RIGHT LOWER LOBE ATELECTASIS VERSUS CONSOLIDATION. 3. MINIMAL LINEAR ATELECTASIS OF THE LEFT LUNG BASE.
[2016-12-05] MEDS: Lansoprazole SOLUTAB* 30 MG G TUBE SCH (08:57)
[2016-12-05] MEDS: Potassium & Sodium Phos 250MG* = 1 PACKET G TUBE SCH ×2 (08:57→21:51)
[2016-12-05] MEDS: Multivitamins ADULT w/MIN LIQ* 15 ML UDC PO SCH (08:58)
[2016-12-05] MEDS: Phenytoin SUSP(*) 100 MG/4 ML UDC (100 MG) G TUBE SCH ×2 (08:58→21:51)
[2016-12-05] MEDS: Atorvastatin* 10 MG TAB PO SCH (08:58)
[2016-12-05] MEDS: Folic Acid TAB* 1 MG FEED TUBE SCH (08:58)
[2016-12-05] MEDS: Acetaminophen ADULT LIQ* 650 MG/20.3 ML UDC PO SCH ×2 (08:58→21:50)
[2016-12-05] MEDS: Magnesium Hydroxide LIQ* 30 ML UDC NG TUBE SCH (08:59)
[2016-12-05] MEDS: Bisacodyl SUPP* 10 MG SUPP PR SCH (08:59)
[2016-12-05] MEDS ORDERED: Atropine 1% (ORAL/SL)* 15 ML BTL SL PRN (10:00)
--- NOTE | 2016-12-05 10:57 | PN ---
Progress Note - Progress Note Note: CRITICAL CARE MEDICINE Date: 12/05/16 Time: 1020 SUBJECTIVE: Patient seen and examined. PHYSICAL EXAM: Vital Signs: Reviewed. Neurologic: baseline. HEENT: pupils reactive. +secretions Cardiovascular: distant, S1 S2 Respiratory: still weak. dec BS more on R base. +secretion Abdomen: Soft Extremities: Warm. dep edema Access: picc LABS: Reviewed. IMAGING: Reviewed. CXR with further R basilar collapse with atelectasis and microatelectasis elsewhere with lower volumes. MEDICATIONS: Reviewed. ASSESSMENT/PLAN: 66 M with severe MR presenting with recurrent aspiration pneumonitis Acute hypoxic resp failure Septic shock - resolved from admission Severe MR Deconditioning Dysphagia malnutrition - mod degree Failing t-piece and needs to return to MV for now and would certainly need intermittently to prevent atelectasis, but he will still remain with limited lower airway cough and clearance and therefore committed to MV if trach decided. Would prefer to maximize with PPV this am and offer a dose of lasix to keep dry and liberate and given him O2 support but avoid artificial ventilation. Meeting today Supportive and preventative care as ordered. SUP: tf VTE prophylaxis: lovenox Disposition: ICU Code Status: Full Critical Care Time: 28min Musa Philip DO
[2016-12-05] MEDS ORDERED: Morphine INJ* 2 MG/ML 1 ML CARPUJECT IV PRN (13:10)
[2016-12-05] MEDS: Insulin GLARGINE(*) 1 UNITS UNIT SUBCUT SCH (15:04)
[2016-12-05] MEDS: Enoxaparin(*) 40 MG/0.4 ML SYR SUBCUT SCH (15:04)
[2016-12-05] MEDS: PHENobarbital LIQ(*) 30 MG/7.5 ML UDC PO SCH (21:50)
[2016-12-05] MEDS: Aspirin Low Dose CHEW TAB* 81 MG PO SCH (21:51)
[2016-12-06] MEDS: Chlorhexidine MOUTHWASH 0.12%* 15 ML UDC TOPICAL SCH ×6 (00:02→22:00)
[2016-12-06] MEDS: Multivitamins ADULT w/MIN LIQ* 15 ML UDC PO SCH (09:19)
[2016-12-06] MEDS: PHENobarbital LIQ(*) 30 MG/7.5 ML UDC PO SCH ×2 (09:20→22:00)
[2016-12-06] MEDS: Phenytoin SUSP(*) 100 MG/4 ML UDC (100 MG) G TUBE SCH ×2 (09:21→22:30)
[2016-12-06] MEDS: Acetaminophen ADULT LIQ* 650 MG/20.3 ML UDC PO SCH ×2 (09:21→22:01)
[2016-12-06] MEDS: Folic Acid TAB* 1 MG FEED TUBE SCH (09:21)
[2016-12-06] MEDS: Atorvastatin* 10 MG TAB PO SCH (09:21)
[2016-12-06] MEDS: Lansoprazole SOLUTAB* 30 MG G TUBE SCH (09:21)
[2016-12-06] MEDS: Bisacodyl SUPP* 10 MG SUPP PR SCH (09:22)
[2016-12-06] MEDS: Potassium & Sodium Phos 250MG* = 1 PACKET G TUBE SCH ×2 (09:22→22:01)
[2016-12-06] MEDS: Magnesium Hydroxide LIQ* 30 ML UDC NG TUBE SCH (09:22)
--- NOTE | 2016-12-06 09:56 | PN ---
Progress Note - Progress Note Note: CCM Progress Note Awakens readily to stimulation On T-piece SBP 93 HR 85 RR 14 SpO2 100 Skin no diaphoresis, no cyanosis Sclerae anicteric pupils equal FT in nare Oral mucosa pink Oral ETT Lungs with bilateral BS, no wheezes Cor RRR no rub, no murmur Abd soft, flat, nontender, old healed lower abdominal scar with condom catheter Ext no edema, (+)Mitts No new labs or CXR IMP: Developmental Disability Recurrent Hypoxemic Respiratory Failure due to pulmonary aspiration with poor chronic management of airway and secretions S/P Septic Shock due to above...resolved Hx DM Hx Seizure disorder PLAN/REC: Awaiting decisions re goals of care...petition made to establish limitations of DNR+DNI with plan to extubate if granted and let nature take its course For now: Keep HOB raised, suction PRN via ETT, provide O2 via ETT , maintain calm and comfortable Insulin as needed Anticonvulsants
[2016-12-06] MEDS: Enoxaparin(*) 40 MG/0.4 ML SYR SUBCUT SCH (17:32)
[2016-12-06] MEDS: Insulin GLARGINE(*) 1 UNITS UNIT SUBCUT SCH (17:32)
[2016-12-06] MEDS: Aspirin Low Dose CHEW TAB* 81 MG PO SCH (22:01)
[2016-12-07] MEDS: Chlorhexidine MOUTHWASH 0.12%* 15 ML UDC TOPICAL SCH ×7 (03:02→22:55)
[2016-12-07] MEDS: Multivitamins ADULT w/MIN LIQ* 15 ML UDC PO SCH (09:56)
[2016-12-07] MEDS: Phenytoin SUSP(*) 100 MG/4 ML UDC (100 MG) G TUBE SCH ×2 (09:56→20:25)
[2016-12-07] MEDS: Potassium & Sodium Phos 250MG* = 1 PACKET G TUBE SCH ×2 (09:56→20:25)
[2016-12-07] MEDS: PHENobarbital LIQ(*) 30 MG/7.5 ML UDC PO SCH ×2 (09:56→20:25)
[2016-12-07] MEDS: Acetaminophen ADULT LIQ* 650 MG/20.3 ML UDC PO SCH ×2 (09:56→20:25)
[2016-12-07] MEDS: Bisacodyl SUPP* 10 MG SUPP PR SCH (09:57)
[2016-12-07] MEDS: Lansoprazole SOLUTAB* 30 MG G TUBE SCH (09:57)
[2016-12-07] MEDS: Magnesium Hydroxide LIQ* 30 ML UDC NG TUBE SCH (09:57)
[2016-12-07] MEDS: Folic Acid TAB* 1 MG FEED TUBE SCH (09:57)
[2016-12-07] MEDS: Atorvastatin* 10 MG TAB PO SCH (09:57)
--- NOTE | 2016-12-07 11:06 | PN ---
Progress Note - Progress Note Note: CCM Progress Note Awakens readily to stimulation On T-piece Respiratory efforts coordinated and no accessory muscle use SBP 112 HR 95 RR 20 SpO2 97-98 Skin no diaphoresis, no cyanosis Sclerae anicteric pupils equal FT in nare Oral mucosa pink, (+)macroglossia Oral ETT Lungs with bilateral BS, no wheezes Cor RRR no rub, no murmur Abd soft, flat, nontender, old healed lower abdominal scar Ext no edema, (+)Mitts No new labs or CXR IMP: Developmental Disability Recurrent Hypoxemic Respiratory Failure due to pulmonary aspiration with poor chronic management of airway and secretions...stable>24 hrs off vent S/P Septic Shock due to above...resolved Hx DM Hx Seizure disorder PLAN/REC: DNR + DNI and no IV pressors established ytdy Extubate Anticipate transfer out of ICU later as no ICU related interventions will be offered after Insulin as needed Anticonvulsants
[2016-12-07] MEDS: Insulin GLARGINE(*) 1 UNITS UNIT SUBCUT SCH (15:13)
[2016-12-07] MEDS: Enoxaparin(*) 40 MG/0.4 ML SYR SUBCUT SCH (16:16)
[2016-12-07] MEDS: Morphine INJ* 2 MG/ML 1 ML CARPUJECT IV PRN (20:20)
[2016-12-07] MEDS: Aspirin Low Dose CHEW TAB* 81 MG PO SCH (20:25)
[2016-12-08] MEDS: Chlorhexidine MOUTHWASH 0.12%* 15 ML UDC TOPICAL SCH ×2 (03:40→08:03)
[2016-12-08] MEDS: Magnesium Hydroxide LIQ* 30 ML UDC NG TUBE SCH (08:01)
[2016-12-08] MEDS: Bisacodyl SUPP* 10 MG SUPP PR SCH (08:01)
[2016-12-08] MEDS: Potassium & Sodium Phos 250MG* = 1 PACKET G TUBE SCH ×2 (08:14→20:25)
[2016-12-08] MEDS: Multivitamins ADULT w/MIN LIQ* 15 ML UDC PO SCH (08:14)
[2016-12-08] MEDS: PHENobarbital LIQ(*) 30 MG/7.5 ML UDC PO SCH ×2 (08:14→20:25)
[2016-12-08] MEDS: Phenytoin SUSP(*) 100 MG/4 ML UDC (100 MG) G TUBE SCH ×2 (08:14→20:25)
[2016-12-08] MEDS: Atorvastatin* 10 MG TAB PO SCH (08:14)
[2016-12-08] MEDS: Lansoprazole SOLUTAB* 30 MG G TUBE SCH (08:14)
[2016-12-08] MEDS: Folic Acid TAB* 1 MG FEED TUBE SCH (08:14)
[2016-12-08] MEDS: Acetaminophen ADULT LIQ* 650 MG/20.3 ML UDC PO SCH ×2 (08:15→20:26)
--- NOTE | 2016-12-08 11:49 | RAD ---
INDICATION: Nasogastric tube placement COMPARISON: December 05, 2016 TECHNIQUE: An AP portable view obtained at 1128 hours is submitted. FINDINGS: Bones/Soft Tissues: There are no acute bony findings. The endotracheal tube is been removed. The nasogastric tube is positioned in the left upper quadrant and is likely in the body of the stomach. Cardiomediastinal: Incompletely evaluated due to airspace disease in the right chest. Lungs: Consolidative change right lung base likely compression atelectasis. Moderate right-sided pleural effusion appearing slightly larger. Small left sided effusion with atelectasis or infiltrate left lung base. Pleura: Increased pleural fluid in the right hemithorax. Other: None IMPRESSION: MODERATE RIGHT-SIDED PLEURAL EFFUSION WITH MILD WORSENING. MILD WORSENING AERATION OF LEFT LUNG BASE. NASOGASTRIC TUBE COILED IN THE BODY OF THE STOMACH
--- NOTE | 2016-12-08 13:47 | PN ---
Subjective Date of Service: 12/08/16 Interval History: This is a 66 yo gentleman with severe intellectual disability, seizure d/o, IDDM and recurrent aspiration PNU who was moved from the ICU yesterday to the medical floor. Patient has had a prolonged hospitalization with frequent episodes of intubation secondary to acute respiratory failure secondary to PNU as well as severe sepsis. [facility] held 12/05/16 with representation from infrastructure security architect, palliative care, and the [facility]. Decision was made for DNR/DNI and to avoid the use of vasopressors. Patient has been doing quite well since transfer from ICU. No signs of respiratory distress. He is alert. He is still receiving nutrition via NGT. His NGT became dislodged and was subsequently replaced earlier today. Objective Active Medications: Acetaminophen (Tylenol Adult Liq*) 650 mg PO Q4H PRN PRN Reason: FEVER/PAIN Last Admin: 12/03/16 16:50 Dose: 650 mg Acetaminophen (Tylenol Adult Liq*) 325 mg PO BID [facility] Last Admin: 12/08/16 08:15 Dose: 325 mg Aspirin (Aspirin Low Dose Tab*) 81 mg PO 2100 [facility] Last Admin: 12/07/16 20:25 Dose: 81 mg Atorvastatin Calcium (Lipitor*) 10 mg PO DAILY [facility] Last Admin: 12/08/16 08:14 Dose: 10 mg Atropine Sulfate (Atropine 1% (Oral/Sl)*) 2 drop SL Q4H PRN PRN Reason: DISCOMFORT Last Admin: 12/04/16 12:27 Dose: 2 drop Bisacodyl (Dulcolax Supp*) 10 mg AL DAILY [facility] Last Admin: 12/08/16 08:01 Dose: Not Given Dextrose (D50w Syringe 50 Ml*) 12.5 gm IV PUSH .FOR FS < 60 - SS PRN PRN Reason: FS < 60 Last Admin: 11/18/16 05:47 Dose: 12.5 gm Enoxaparin Sodium (Lovenox(*)) 40 mg SUBCUT Q24H [facility] Last Admin: 12/07/16 16:16 Dose: 40 mg Folic Acid (Folvite Tab*) 1 mg FEED TUBE DAILY [facility] Last Admin: 12/08/16 08:14 Dose: 1 mg Furosemide (Lasix Iv*) 20 mg IV ONCE ONE Stop: 12/08/16 13:39 Insulin Glargine (Lantus(*)) 15 units SUBCUT Q24H [facility] Last Admin: 12/07/16 15:13 Dose: 15 units Lansoprazole (Prevacid Solutab*) 30 mg G TUBE DAILY [facility] Last Admin: 12/08/16 08:14 Dose: 30 mg Magnesium Hydroxide (Milk Of Magnesia Liq*) 30 ml NG TUBE DAILY [facility] Last Admin: 12/08/16 08:01 Dose: Not Given Morphine Sulfate (Morphine Inj (Syringe)*) 2 mg IV Q4H PRN PRN Reason: DYSPNEA Last Admin: 12/07/16 20:20 Dose: 2 mg Multivitamins (Theragran W/Minerals Liq*) 15 ml PO DAILY [facility] Last Admin: 12/08/16 08:14 Dose: 15 ml Ondansetron HCl (Zofran Inj*) 4 mg IV Q6H PRN PRN Reason: NAUSEA Phenobarbital (Phenobarbital Liq(*)) 30 mg PO BID [facility] Last Admin: 12/08/16 08:14 Dose: 30 mg Phenytoin Sodium (Dilantin Susp(*)) 100 mg G TUBE BID [facility] Last Admin: 12/08/16 08:14 Dose: 100 mg Potassium Phos/Sodium Phos (Neutra Phos 250 Mg Juan Daniel*) 250 mg G TUBE BID [facility] Last Admin: 12/08/16 08:14 Dose: 250 mg Vital Signs: Temp Pulse Resp BP Pulse Ox 98.0 F 102 20 139/87 100 12/08/16 09:03 12/08/16 07:58 12/08/16 10:14 12/08/16 07:58 12/08/16 07:58 Oxygen Devices in Use Now: Nasal Cannula - 2L Appearance: Alert, well appearing elderly male with severe intellectual disability, accompanied by [facility] aid. Respiratory: Symmetrical Chest Expansion and Respiratory Effort, - - few crackles appreciated Cardiovascular: RRR Abdominal: NL Sounds; No Tenderness; No Distention Extremities: No Edema Skin: No Rash or Ulcers Result Diagrams: 12/04/16 05:43 12/04/16 06:53 Additional Lab and Data: . Microbiology and Other Data: Diagnostic Imaging: CXR 12/08 - worsening R sided effusion, NGT coiled in the stomach Assess/Plan/Problems-Billing Assessment: Acute hypoxic respiratory failure 2/2 HCAP vs aspiration PNA requiring intubation, septic shock, dysphagia in a 66 yo M with severe developmental delay , HTN, HLD, DM, seizure disorder, BPH - Patient Problems (1) Acute respiratory failure with hypoxia Comment: Now resolved Secondary to PNA, he has completed antibiotics Persistent R sided effusion noted on CXR, perhaps slightly worse Plan to repeat labs tomorrow Lightly diuress, as he has a positive fluid balance the last several days Appears comfortable and is afebrile (2) Dysphagia Comment: H/o recurrent aspiration Nutrition is still via NGT Recent meeting regarding code status did not appear to address nutrition Will plan to repeat swallow eval tomorrow and if he fails, will need to initiate a discussion regarding PEG tube v. comfort feeding (3) Pleural effusion, right Comment: Recurrent Likely related to PNU, but prior thoracentesis did not reveal an empyema Appears slightly larger on today's CXR Will lightly diuress with IV Lasix (4) Diabetes Comment: Good glycemic control Cont Lantus (5) Seizure disorder Comment: Seizure precautions c/w pheobarbital and phenytoin (6) Sepsis Comment: Resolved, antibiotics completed Secondary to PNA and UTI (7) Severe intellectual disability (8) DNR (do not resuscitate) Comment: Per [facility] 12/05 Status and Disposition: Plan to repeat swallow eval, if he fails, the next step is to determine appropriate nutritional support. Disposition will largely be determined by his ability to swallow
[2016-12-08] MEDS ORDERED: Furosemide IV* 10 MG/ML 2 ML VIAL (20 MG) IV ONE (14:00)
[2016-12-08] MEDS: Insulin GLARGINE(*) 1 UNITS UNIT SUBCUT SCH (14:59)
[2016-12-08] MEDS: Enoxaparin(*) 40 MG/0.4 ML SYR SUBCUT SCH (14:59)
[2016-12-08] MEDS: Aspirin Low Dose CHEW TAB* 81 MG PO SCH (20:25)
[2016-12-09 00:19] VITALS: BP 149/82
[2016-12-09] MEDS: Morphine INJ* 2 MG/ML 1 ML CARPUJECT IV PRN (01:16)
[2016-12-09 04:38] LABS: Comments Flag Yes; Hematocrit 31 % (42-52); Hemoglobin 10.1 g/dl (14.0-18.0); Mean Corpuscular HGB Conc 33 g/dl (31-36); Mean Corpuscular Hemoglobin 33 pg (27-31); Mean Corpuscular Volume 101 fL (80-94); Mean Platelet Volume 11 um3 (7.4-10.4); Red Blood Count 3.04 10^6/ul (4.0-5.4); Red Cell Distribution Width 16 % (10.5-15); White Blood Count 6.4 10^3/ul (3.5-10.8)
[2016-12-09 04:40] LABS: Add Diff/Slide Review? Slide Review Added
[2016-12-09 04:45] LABS: C Reactive Protein 123.89 mg/L (< 5.00); Calcium 8.5 mg/dL (8.6-10.3); EGFR African American 473.2 (>60); Potassium 3.8 mmol/L (3.5-5.0)
[2016-12-09 05:21] LABS: Immature Granulocytes 23 % (0-9); Metamyelocytes % 1 % (0-2); Neutrophil % 56 % (38-83)
[2016-12-09 05:23] LABS: RBC Morphology Normal (Normal); Toxic Granulation 1+
--- NOTE | 2016-12-10 04:07 | DS ---
NOTE/DISCHARGE SUMMARY: DATE OF ADMISSION: 11/13/16 DATE OF : 12/09/16 PRIMARY CARE PROVIDER: Dr. Thee Cordova. CONSULTING PALLIATIVE CARE PHYSICIAN: Dr. Tami Leblanc. CONSULTING INFECTIOUS DISEASE SPECIALIST: Dr. Fredi Mora. DISCHARGING PROVIDER: BRIANA Vaca SUPERVISING PHYSICIAN: Dr. Funmilayo Chung.* (DICTATED BY BRIANA VACA) PRIMARY DIAGNOSES: 1. Acute hypoxic respiratory failure. 2. Septic shock secondary to pneumonia and urinary tract infection. 3. Recurrent aspiration. 4. Persistent right pleural effusion. SECONDARY DISCHARGE DIAGNOSES: 1. Insulin-dependent diabetes. 2. Seizure disorder. 3. 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 HOSPITAL IMAGIN. Initial chest x-ray, 11/13/16, demonstrated bilateral infiltrates and resolution of previously recognized right pleural effusion. 2. Repeat chest x-ray, 11/24/16, demonstrated near complete opacification of the right hemithorax. 3. CT of the chest from 11/24/16 showed near complete consolidation of the right lung with only a small portion of the anterior right upper lobe exhibiting aeration with moderately sized pleural effusion. Patchy infiltrates noted in the left lung with dependent atelectasis and a small left-sided pleural effusion. 4. Followup chest x-ray, 11/25/16, showed a partial resolution of right lung atelectasis when compared to prior exams. 5. Repeat chest x-ray, 12/05/16, showed a small right-sided pleural effusion with right lower lobe atelectasis versus consolidation. 6. Repeat chest x-ray, 12/08/16, showed worsening right-sided pleural effusion. 7. EKG, 11/13/16, showed a sinus rhythm without ischemic changes. HOSPITAL COURSE: This was a 66-year-old gentleman with history of severe intellectual disability, largely nonverbal at baseline as well as history of seizure disorder, recurrent aspirations, and insulin-dependent diabetes, who was brought to the emergency department with concerns for hypoxia and altered mental status. The patient was a resident of the [facility]. When he presented to the emergency department, oxygen saturations at home had been measured as low as 78% and the patient was not as responsive as what his typical baseline was. He was afebrile at that time. Initial chest x-ray demonstrated bilateral infiltrates, left seemingly worse than right, and he had high oxygen demands, maintaining saturations in the low 90s with 10 L. There was no significant leukocytosis appreciated on initial labs. Initial lactic acid was quite high at 4.7. Comprehensive metabolic panel was remarkable only for serum bicarb of 34, otherwise within normal limits. The patient was subsequently admitted to the ICU and initially trialed on high-flow oxygen. He quickly failed high flow requiring intubation and vasopressors were initiated. The patient had quite prolonged hospitalization and failed extubation on a number of occasions. The patient did develop large right-sided pleural effusion , which was likely related to his pneumonia but no evidence of an empyema. On 11/24/16, the patient developed severe atelectasis secondary to mucous plugging. He underwent beside bronchoscopy by auto roller who was able to extract some secretions from the proximal mainstem bronchus on the right side with improved ventilation. Repeat chest x-ray showed a persistent effusion but no evidence of an empyema. On 12/05/16, [facility] was held which included representation from intensive care, palliative care, social work, and the [facility] as well as [facility] panel. The committee was held in regards to patient's code status and request was made to make the patient DNR and DNI and to withhold future vasopressors. After significant discussion, the panel agreed with the recommendations from the medical team and the patient was made DNR and DNI. After a 48-hour waiting period, the patient was subsequently extubated and discharged to the medical floor. At the time of transfer to the medical floor, the patient was alert. He was receiving nutrition via nasogastric tube. He had failed prior swallow evaluations. On 12/09/16, the patient was observed to have what appeared to be seizure like activity by the aide that was accompanying him from the [facility]. The change of shift in the morning, an additional aide joined her, who noted that the patient was not responsive and notified the hospital nursing staff. When hospital nursing staff evaluated the patient, he was noted to be apneic and pulseless. Time of was called at 7:15 a.m. Review of previous vitals and labs performed earlier that morning showed that everything was essentially within normal limits. The patient had been oxygenating well overnight. CBC, metabolic panel were essentially within normal limits without significant leukocytosis or metabolic derangements. Seems most likely that patient sustained a seizure and became apneic leading to respiratory arrest. BRIANA VACA CC: Dr. Thee Cordova * [id number]/[facility] #: [id number] MTDD
== END 2016-12-09 07:15 | disposition expired | DRG 870 ==
LOC: ED 18:00 → ICU 19:02 → MED 11-22 13:45 → ICU 11-24 18:40 → MED 12-07 16:29
PROVIDERS: ADMIT Internal Medicine; ATTEND Internal Medicine
PROC: 0BH17EZ Insertion of Endotracheal Airway into Trachea, Via Natural or Artificial Opening (ICD-10-PCS; principal; 2016-11-13)
PROC: 5A1955Z Respiratory Ventilation, Greater than 96 Consecutive Hours (ICD-10-PCS; 2016-11-13)
PROC: 0DH67UZ Insertion of Feeding Device into Stomach, Via Natural or Artificial Opening (ICD-10-PCS; 2016-11-14)
PROC: 3E0G76Z Introduction of Nutritional Substance into Upper GI, Via Natural or Artificial Opening (ICD-10-PCS; 2016-11-14)
PROC: 02HV33Z Insertion of Infusion Device into Superior Vena Cava, Percutaneous Approach (ICD-10-PCS; 2016-11-14)
PROC: 0BH17EZ Insertion of Endotracheal Airway into Trachea, Via Natural or Artificial Opening (ICD-10-PCS; 2016-11-17)
PROC: 0BH17EZ Insertion of Endotracheal Airway into Trachea, Via Natural or Artificial Opening (ICD-10-PCS; 2016-11-24)
PROC: 5A1955Z Respiratory Ventilation, Greater than 96 Consecutive Hours (ICD-10-PCS; 2016-11-24)
PROC: 5A1935Z Respiratory Ventilation, Less than 24 Consecutive Hours (ICD-10-PCS; 2016-12-05)
DX: A41.9 Sepsis, unspecified organism (principal); J96.01 Acute respiratory failure with hypoxia; R65.21 Severe sepsis with septic shock; J69.0 Pneumonitis due to inhalation of food and vomit; G93.40 Encephalopathy, unspecified; J90 Pleural effusion, not elsewhere classified; E44.0 Moderate protein-calorie malnutrition; T68.XXXA Hypothermia, initial encounter; J44.9 Chronic obstructive pulmonary disease, unspecified; F72 Severe intellectual disabilities; J98.11 Atelectasis; N39.0 Urinary tract infection, site not specified; E11.9 Type 2 diabetes mellitus without complications; I10 Essential (primary) hypertension; G40.909 Epilepsy, unspecified, not intractable, without status epilepticus; M19.90 Unspecified osteoarthritis, unspecified site; H26.9 Unspecified cataract; F81.9 Developmental disorder of scholastic skills, unspecified; F41.9 Anxiety disorder, unspecified; E78.5 Hyperlipidemia, unspecified; N40.0 Benign prostatic hyperplasia without lower urinary tract symptoms; L28.0 Lichen simplex chronicus; R62.7 Adult failure to thrive; R13.10 Dysphagia, unspecified; D69.6 Thrombocytopenia, unspecified; D75.89 Other specified diseases of blood and blood-forming organs; Z66 Do not resuscitate; T17.990A Other foreign object in respiratory tract, part unspecified in causing asphyxiation, initial encounter; Z99.81 Dependence on supplemental oxygen; Z88.0 Allergy status to penicillin; Z88.1 Allergy status to other antibiotic agents; Z87.01 Personal history of pneumonia (recurrent); Z87.442 Personal history of urinary calculi; Z86.14 Personal history of Methicillin resistant Staphylococcus aureus infection; Z68.21 Body mass index [BMI] 21.0-21.9, adult; Z78.1 Physical restraint status
CPT/HCPCS: 36415; 71010; 71250; 74000; 80048; 80053; 80184; 80185; 81003; 81015; 82140; 82803; 83605; 83735; 84100; 84484; 85025; 85027; 85049; 85610; 86022; 86140; 87040; 87086; 87899; 93005; 94002; 94003; 94760; 99212; 99285; A9270-GY; C1751; G0463; J0456; J0696; J1120; J1644; J1650; J1720; J1940; J2020; J2060; J2185; J2250; J2270; J2310; J2704; J3010; J3475; J3480; J7512